=== PATIENT | female | born 1965 | race Caucasian/White ===

== ENCOUNTER 2019-12-27 07:14 | Outpatient (CLI) | payer OTHER, SELFPAY ==
--- NOTE | ~2019-12-27 | NM_ITS ---
EXAMINATION: NM bone scan whole body DATE: 12/27/2019 10:58 INDICATION: Bone pain. Rheumatoid arthritis. TECHNIQUE: 23.2 mCi Tc-99m HDP was administered intravenously. Delayed whole-body scintigrams were o btained. COMPARISON: Lumbar spine radiographs 12/13/2015, knee radiographs 12/27/2019 FINDINGS: There is joint-centered increased activity in the knees correlating with osteoarthritis on radiographs. There is disc-centered increased activity in lumbar spine correlating with degenerative disc disease on radiographs. There is joint-centered increased activity in the feet without radiograp hic comparison, likely osteoarthritis. There is increased activity at the acromioclavicular joints wi thout radiographic comparison, likely osteoarthritis. IMPRESSION: 1. Polyarticular osteoarthritis. 2. Lumbar spondylosis. Reviewed, dictated and finalized at location A.
== END 2019-12-27 07:15 | disposition home or self-care (01) ==
PROVIDERS: Visit Provider Internal Medicine Rheumatology
DX: M06.9 Rheumatoid arthritis, unspecified (principal); M89.8X9 Other specified disorders of bone, unspecified site; M47.896 Other spondylosis, lumbar region; M51.36 Other intervertebral disc degeneration, lumbar region
CPT/HCPCS: 78306; A9561

== ENCOUNTER 2020-04-12 07:40 | Outpatient (RCR) | payer OTHER, SELFPAY ==
--- NOTE | 2020-04-12 08:53 | PTOPEVAL ---
Thank you for referring Alka Phillips to [facility].? The patient is scheduled to be seen for therapy? ____x/week for ___ weeks. Please review, sign, date and return this plan of care VIANEY. I agree with and certify that the following plan of care is medically necessary. Referring Physician Date Admitting Provider: Attending Provider: Duke Mccauley, MD Referring Provider: *PT Outpatient Evaluation Start: 04/12/20 08:05 Freq: Status: Active Protocol: Document 04/12/20 08:05 BETTY (Rec: 04/12/20 08:50 [facility] [id number]) Therapy Assessment Status Assessment Status Assessment Status Evaluation Evaluation Information Problem Diagnosis calf pain and knee pain R LE Onset 04/08/20 Additional Evaluation Detail LEFS = 38% functionally declined Subjective Information patient reports no injury to Query Text:As Reported By Patient/ the R knee/calf. she reports Family she has not noticed a change in activity either at home or work. she reports she had pain in the front of the knee, down the anterior lower leg. she reports she also has pain in the posterior lower leg/ calf. she reports she has increased pain with pronlonged walking, increased walking speed, and up and down steps. she reports going down steps is worse. 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 she reports she must be on her feet all day and go up and down steps frequently. she reports she has noticed increased knee pain now for months. she reports she gets injections about every 3 months for RA. she reports her last injection was about 2 months ago. Pain Assessment Timing of Pain Assessment Timing of Pain Assessment Assessment Pain Scale Pain Scale Used Numeric (1 - 10) Self Report Pain Assessment Right Leg(s) Reported Pain Level 4 Greatest Pain Intensity 9 Pain Score Pain Score 4: Self Report Additional Pain Score Comments patient reports increased pain after sit
== END 2020-05-17 11:30 | disposition home or self-care (01) ==
LOC: CHSPT 07:40
PROVIDERS: Visit Provider Internal Medicine Rheumatology
DX: M06.9 Rheumatoid arthritis, unspecified (principal)
CPT/HCPCS: 97110; 97140; 97161

== ENCOUNTER 2020-05-14 08:51 | Outpatient (CLI) | payer OTHER, SELFPAY | END 2020-05-14 08:52 | disposition home or self-care (01) | PROVIDERS: PCP Orthopaedic Surgery | DX: Z23 Encounter for immunization (principal) | CPT/HCPCS: 0001A; 91300 ==

== ENCOUNTER 2020-06-04 08:55 | Outpatient (CLI) | payer OTHER, SELFPAY | END 2020-06-04 08:56 | LOC: ANHCOVIDVC 08:55 | PROVIDERS: PCP Orthopaedic Surgery | DX: Z23 Encounter for immunization (principal) | CPT/HCPCS: 0002A; 91300 ==

== ENCOUNTER 2021-11-07 10:24 | Outpatient (CLI) | payer OTHER, SELFPAY ==
[2021-11-07 10:42] LABS: Hemoglobin 12.8 g/dL (12.0-15.0); Mean Corpuscular HGB Conc 32.8 g/dL (32.0-36.0); Mean Corpuscular Hemoglobin 31.5 pg (27.0-31.0); Mean Corpuscular Volume 96.1 fL (78.0-102.0); Mean Platelet Volume 9.9 fl (9.2-11.8); Platelet Count Result 229 K/mm3 (150-420); Red Blood Count 4.06 M/mm3 (4.20-5.40); Red Cell Distribution Width 12.4 % (11.6-14.4); White Blood Count 7.3 K/mm3 (4.8-10.8)
[2021-11-07 11:09] LABS: Alanine Aminotransferase 37 U/L (14-59); Alkaline Phosphatase 109 U/L (46-116); Anion Gap 9 mmol/L (8-16); Aspartate Amino Transferase 29 U/L (15-37); Bilirubin,Total 0.5 mg/dL (0.00-1.00); Blood Urea Nitrogen 20 mg/dL (7-18); Calcium 9.3 mg/dL (8.5-10.1); Carbon Dioxide 26 mmol/L (21-32); Chloride 103 mmol/L (98-108); Cholesterol 221 mg/dL (0-200); Estimated Glomerular Filt Rate > 60; Glucose 92 mg/dL (70-99); HDL Direct 108 mg/dL (40-60); LDL Cholesterol Calculated 101 mg/dL (<130); Osmolality Calculated 288 mOsm/kg (285-295); Potassium 3.8 mmol/L (3.5-5.1); Sodium 138 mmol/L (136-145); Total Protein 7.3 g/dL (6.4-8.2); Triglycerides 62 mg/dL (0-150)
[2021-11-07 11:16] LABS: Thyroid Stimulating Hormone Reflex 0.97 u/IU/mL (0.36-3.74)
== END 2021-11-07 10:25 | disposition home or self-care (01) ==
LOC: CHSLAB 10:25
PROVIDERS: PCP Family Medicine; Visit Provider Family Medicine
DX: Z00.00 Encounter for general adult medical examination without abnormal findings (principal); B35.1 Tinea unguium; E11.9 Type 2 diabetes mellitus without complications
CPT/HCPCS: 36415; 80053; 80061; 84443; 85027

== ENCOUNTER 2021-11-13 13:29 | Outpatient (CLI) | payer OTHER, SELFPAY ==
--- NOTE | ~2021-11-13 | XR_ITS ---
EXAMINATION: XR hand LT min 3V DATE: 11/13/2021 14:07 INDICATION: Left hand pain. TECHNIQUE: 3 views of left hand were obtained. COMPARISON: None. FINDINGS: Bone alignment is normal. No fracture. There is mild osteoarthritis of second metacarpophal angeal joint and fourth and fifth distal interphalangeal joints. IMPRESSION: 1. Mild polyarticular osteoarthritis. Reviewed, dictated and finalized at location A.
--- NOTE | ~2021-11-13 | XR_ITS ---
EXAMINATION: XR hand RT min 3V DATE: 11/13/2021 14:06 INDICATION: Right hand pain. TECHNIQUE: 3 views of right hand were obtained. COMPARISON: None. FINDINGS: Bone alignment is normal. No fracture. There is mild osteoarthritis of first and second met acarpophalangeal joints and second distal interphalangeal joint. IMPRESSION: 1. Mild polyarticular osteoarthritis. Reviewed, dictated and finalized at location A.
[2021-11-13 13:48] LABS: Basophils Absolute Auto 0.04 K/mm3 (0.00-0.10); Basophils Percent Auto 0.5 % (0.0-1.0); Eosinophils Percent Auto 1.3 % (1.0-6.0); Hematocrit 37.3 % (35.0-49.0); Hemoglobin 12.3 g/dL (12.0-15.0); Immature Granulocyte Absolute 0.02 K/mm3 (0.00-0.00); Immature Granulocyte Percent A 0.3 % (0.0-0.0); Lymphocytes Percent Auto 25.1 % (18.0-42.0); Mean Corpuscular Hemoglobin 31.2 pg (27.0-31.0); Mean Corpuscular Volume 94.7 fL (78.0-102.0); Mean Platelet Volume 9.9 fl (9.2-11.8); Monocytes Absolute Auto 0.67 K/mm3 (0.10-0.90); Monocytes Percent Auto 8.8 % (2.0-11.0); Neutrophils Absolute Auto 4.9 K/mm3 (1.7-7.2); Platelet Count Result 236 K/mm3 (150-420); Red Blood Count 3.94 M/mm3 (4.20-5.40); Red Cell Distribution Width 12.3 % (11.6-14.4); White Blood Count 7.6 K/mm3 (4.8-10.8)
[2021-11-13 14:06] LABS: Hemoglobin A1C 5.7 % (<5.7)
[2021-11-13 14:23] LABS: RFT Charge Test YES; Rheumatoid Factor Screen Positive (Negative)
[2021-11-13 14:33] LABS: Alanine Aminotransferase 41 U/L (14-59); Albumin Level 3.7 g/dL (3.4-5.0); Alkaline Phosphatase 121 U/L (46-116); Anion Gap 9 mmol/L (8-16); Aspartate Amino Transferase 33 U/L (15-37); Bilirubin,Total 0.5 mg/dL (0.00-1.00); Blood Urea Nitrogen 19 mg/dL (7-18); Calcium 9.1 mg/dL (8.5-10.1); Carbon Dioxide 25 mmol/L (21-32); Chloride 105 mmol/L (98-108); Estimated Glomerular Filt Rate > 60; Folic Acid 15.5 ng/mL (8.6->20); Glucose 106 mg/dL (70-99); Osmolality Calculated 290 mOsm/kg (285-295); Potassium 4.1 mmol/L (3.5-5.1); Sodium 139 mmol/L (136-145); Total Protein 6.6 g/dL (6.4-8.2)
[2021-11-13 14:39] LABS: CRP < 0.2 mg/dL (0.0-0.9)
[2021-11-13 14:56] LABS: Erythrocyte Sedimentation Rate 20 mm/hr (0-20)
[2021-11-16 12:30] LABS: Anti Cyclic Citrullinated Pept <16 Units (<20)
[2021-11-17 00:30] LABS: Albumin 4.2 g/dL (3.8-4.8); Alpha 1 Globulin 0.3 g/dL (0.2-0.3); Alpha 2 Globulin 0.7 g/dL (0.5-0.9); Beta 1 Globulin 0.4 g/dL (0.4-0.6); Gamma Globulin 0.9 g/dL (0.8-1.7); Protein, Total 6.7 g/dL (6.1-8.1)
== END 2021-11-13 13:30 | disposition home or self-care (01) ==
LOC: CHSLAB 13:32
PROVIDERS: PCP Family Medicine
DX: G56.03 Carpal tunnel syndrome, bilateral upper limbs (principal); M05.80 Other rheumatoid arthritis with rheumatoid factor of unspecified site; M79.641 Pain in right hand; M79.642 Pain in left hand
CPT/HCPCS: 36415; 73130; 80053; 82746; 82747; 83036; 84155; 84165; 84443; 85025; 85652; 86140; 86200; 86430; 86431

== ENCOUNTER 2021-11-20 07:36 | Outpatient (CLI) | payer OTHER, SELFPAY ==
--- NOTE | ~2021-11-20 | MM_ITS ---
EXAMINATION: MM screening yanet BI w blank HISTORY: Screening mammogram, family history of breast cancer in her mother. TECHNIQUE: Craniocaudal and mediolateral oblique 3-D tomosynthesis images were obtained and synthetic 2-D images were generated. CAD analysis was submitted and interpreted. COMPARISON: 10/21/2010, 10/01/2009 BREAST PARENCHYMAL COMPOSITION: The breasts are heterogeneously dense, which may obscure small masses . FINDINGS: There is no suspicious mass, calcification, or architectural distortion to suggest malignan cy in either breast. There has been no suspicious interval change. IMPRESSION: 1. No mammographic evidence of malignancy. 2. Recommend routine screening mammography in one year. BI-RADS Category 1: Negative Reviewed, dictated and finalized at location A.
== END 2021-11-20 07:37 | disposition home or self-care (01) ==
LOC: CHSIMG 07:36
PROVIDERS: PCP Family Medicine; Visit Provider Family Medicine
DX: Z12.31 Encounter for screening mammogram for malignant neoplasm of breast (principal)
CPT/HCPCS: 77063; 77067

== ENCOUNTER 2022-12-16 07:54 | Outpatient (CLI) | payer OTHER, SELFPAY ==
--- NOTE | ~2022-12-16 | MM_ITS ---
EXAMINATION: MM screening [facility] BI w blank HISTORY: Screening TECHNIQUE: Craniocaudal and mediolateral oblique 3-D tomosynthesis images were obtained and synthetic 2-D images were generated. CAD analysis was submitted and interpreted. COMPARISON: 11/20/2021 BREAST PARENCHYMAL COMPOSITION: The breasts are heterogeneously dense, which may obscure small masses . FINDINGS: There are developing bilateral breast asymmetries in the subareolar location of both breast s. There are no discrete masses or suspicious clustered calcifications. IMPRESSION: 1. Developing bilateral breast asymmetries. 2. Additional mammographic views and possible breast ultrasound are recommended. BI-RADS Category 0: Incomplete: Needs additional imaging evaluation. Reviewed, dictated and finalized at location A. IMPRESSION: 1. Developing bilateral breast asymmetries. 2. Additional mammographic views and possible breast ultrasound are recommended . BI-RADS Category 0: Incomplete: Needs additional imaging evaluation.
== END 2022-12-16 07:55 | disposition home or self-care (01) ==
LOC: CHSIMG 07:55
PROVIDERS: PCP Family Medicine; Visit Provider Family Medicine
DX: Z12.31 Encounter for screening mammogram for malignant neoplasm of breast (principal); R92.8 Other abnormal and inconclusive findings on diagnostic imaging of breast
CPT/HCPCS: 77063; 77067

== ENCOUNTER 2022-12-25 09:01 | Outpatient (CLI) | payer OTHER, SELFPAY ==
--- NOTE | ~2022-12-25 | MMUS_ITS ---
EXAMINATION: MM diagnostic yanet BI w blank, US breast BI complete HISTORY: Developing bilateral breast mammographic asymmetries reported on 12/16/2022 bilateral screen ing mammogram TECHNIQUE: Additional 3-D tomosynthesis images of both breasts. were performed and synthetic 2-D imag es were generated. CAD analysis was submitted and interpreted. High resolution bilateral complete spencer ast ultrasound examination including all 4 quadrants and subareolar areas was performed. COMPARISON: 12/16/2022 bilateral screening mammogram 11/20/2021 bilateral screening FINDINGS: MAMMOGRAPHIC FINDINGS: No suspicious mass or architectural distortion, malignant calcification, skin thickening or retractio n or significant new or developing density is detected. ULTRASOUND: No suspicious mass or shadowing, cyst or other significant sonographic abnormality of either breast i s detected. IMPRESSION: 1. No mammographic or sonographic evidence of malignancy 2. Routine annual mammographic screening is recommended. BI-RADS Category 1: Negative Reviewed, dictated and finalized at location A. IMPRESSION: 1. No mammographic or sonographic evidence of malignancy 2. Routine annual mammographic screening is recommended. BI-RADS Category 1: Negative
== END 2022-12-25 09:02 | disposition home or self-care (01) ==
LOC: CHSIMG 09:02
PROVIDERS: PCP Family Medicine; Visit Provider Family Medicine
DX: Z00.00 Encounter for general adult medical examination without abnormal findings (principal); R92.8 Other abnormal and inconclusive findings on diagnostic imaging of breast
CPT/HCPCS: 76641; 77062; 77066; G0279

== ENCOUNTER 2023-12-13 08:02 | Outpatient (RCR) | payer OTHER, SELFPAY ==
--- NOTE | 2023-12-13 07:49 | PTOPEVAL1 ---
Assessment and note entered by Marcio Sofia Evaluation Information Assessment Status Evaluation Diagnosis s/p R TKA ICD-10 Condition Codes (PT) Z47.1 Onset 10/18/23 Subjective Information pt. reports she underwent right TKA on 10/18/23. She reports that she has been participating in home health. She has been discharged from home health and feels her knee is becoming more stiff. She reports that she has returned to driving and household activities, but states that she is having pain with these activities. She notices that she has trouble lifting the right leg into the car. She reports that she has stairs in her home, but states that she is having trouble getting up and down the stairs. She states that her driveway distance is the furthest she has walked since surgery. She is uncertain if she notices any improvement since surgery. She reports that her goal is to reduce pain and return to walking normally. Reported Pain Level Pain Score 1: Self Report Assessment PT Clinical Summary Pt. is a 58 year old female 8 weeks post right TKA . She presents with notable edema, impaired gait and impaired right knee ROM. End feels with ROM are capsular on this date. Pt. is very guarded into end range flexion. Educated pt. in regards to acceptable levels of discomfort with exercise and importance of achieving terminal flexion and extension in regards to normalizing mechanics with gait and IADL performance. Continued skilled PT is indicated in order to improve mobility and reduce edema to allow for improve comfort with all IADL's. Plan of Care Interventions Electrical Stimulation,Gait Training,Hot Pack/Cold Pack,Manual Therapy,Neuro Re-education,Patient/ Caregiver Educati,Therapeutic Activities, Therapeutic Exercise PT Services Indicated Yes Treatment Frequency and 2x/week x 6 visits Duration These treatments will address the objective and functional deficits as defined above. The patient will be advanced safely and appropriately in order for the patient to progress towards his/her prior level of function. Additional exercises will be introduced and as well as a comprehensive home exercise program upon discharge, if needed, ?to ensure carryover of functional gains achieved in the clinic. This treatment plan has been reviewed and agreement upon by the patient.
--- NOTE | 2023-12-13 08:04 | OPREHPOC ---
Outpatient Therapy Plan of Care This is a Multidisciplinary Plan of Care that may contain components documented by all disciplines (PT, OT, and ST.) PT Problem 1 PT Problem #1 Knowledge Deficit PT Goal 1 Goal / Goal Update Pt. will be independent with a HEP focusing on ROM quaker Target Visit 2 PT Problem 2 PT Problem #2 Pain PT Goal 1 Goal / Goal Update Pt. will navigate steps with reciprocal pattern without pain Target Visit 6 PT Problem 3 PT Problem #3 Impaired Gait PT Goal 1 Goal / Goal Update Pt. will demonstrate full knee extension during right heel strike with ambulation. Target Visit 2 PT Problem 4 PT Problem #4 Impaired Range of Motion PT Goal 1 Goal / Goal Update Pt. will achieve 0-120 degrees right knee active ROM Pt. will be able to squat to 100 degrees right knee flexion in order to safely lift objects from the floor. Target Visit 6
--- NOTE | 2023-12-30 08:42 | PTOPDC ---
Assessment and note entered by Marcio Sofia Evaluation Information Assessment Status Discharge Diagnosis s/p R TKA ICD-10 Condition Codes (PT) Z47.1 Onset 10/18/23 Subjective Information Pt. states that she visited with her doctor yesterday. She states that she is still concerned with pain and stiffness. She reports that her doctor did not express any concern. She reports that she is continuing to exercise at home. She states that she is ready for discharge at this time. Reported Pain Level Pain Score 2: Self Report Assessment PT Clinical Summary Pt. has met all goals established at the initial evaluation. She is encouraged to continue with her HEP and will be discharged from our care. Plan of Care PT Services Indicated No
== END 2023-12-30 13:11 | disposition home or self-care (01) ==
LOC: CHSPT 08:02
DX: Z47.1 Aftercare following joint replacement surgery (principal); Z96.651 Presence of right artificial knee joint
CPT/HCPCS: 97110; 97140; 97161; 97530

== ENCOUNTER 2024-01-31 15:40 | Outpatient (CLI) | payer OTHER, SELFPAY ==
--- NOTE | ~2024-01-31 | XR_ITS ---
EXAMINATION: XR hand RT min 3V DATE: 01/31/2024 16:02 INDICATION: Right wrist pain. Fall. TECHNIQUE: 3 views of right hand were obtained. COMPARISON: Right hand radiographs 11/13/2021 FINDINGS: There is a transverse fracture of distal radius proximal to the level of the tibial plafond . The distal fracture fragment demonstrates impaction and dorsal angulation. There is 3 degrees dorsa l tilt of the distal articular surface. There is mild osteoarthritis of triscaphe joint and second di stal interphalangeal joint. IMPRESSION: 1. Transverse fracture of distal radius. Reviewed, dictated and finalized at location A. NESS AND SERVICES INSTRUCTOR
--- NOTE | ~2024-01-31 | XR_ITS ---
EXAMINATION: XR wrist RT min 3V DATE: 01/31/2024 16:02 INDICATION: Right wrist pain. Fall. TECHNIQUE: 4 views of right wrist were obtained. COMPARISON: Right hand radiographs 11/13/2021 FINDINGS: There is a transverse fracture of distal radius proximal to the distal radioulnar joint. Th e distal fracture fragment demonstrates impaction and dorsal angulation. There is 3 degrees dorsal ti lt of the distal articular surface. There is mild osteoarthritis of triscaphe joint. IMPRESSION: 1. Transverse fracture of distal radius. Reviewed, dictated and finalized at location A. AL TEACHER
--- NOTE | ~2024-01-31 | XR_ITS ---
EXAMINATION: XR forearm RT 2V DATE: 01/31/2024 16:02 INDICATION: Right wrist pain. Fall. TECHNIQUE: 2 views of right forearm were obtained. COMPARISON: None. FINDINGS: There is a transverse fracture of distal radius. The distal fracture fragment demonstrates impaction and dorsal angulation. Joint spaces are normal. No elbow joint effusion. IMPRESSION: 1. Transverse fracture of distal radius. Reviewed, dictated and finalized at location A. DING PRESSURE WASHER
== END 2024-01-31 15:41 | disposition home or self-care (01) ==
LOC: CHSIMG 15:43
PROVIDERS: PCP Family Medicine; Visit Provider Family Medicine
DX: S52.591A Other fractures of lower end of right radius, initial encounter for closed fracture (principal)
CPT/HCPCS: 73090; 73110; 73130

== ENCOUNTER 2024-01-31 16:52 | Emergency (ER) | payer OTHER, SELFPAY ==
[2024-01-31 16:53] VITALS: BP 134/69; PULSE 79; RESP 18; TEMP 36.4; O2SAT 99
--- NOTE | 2024-01-31 18:04 | ED.FALL ---
HPI - Fall General Chief Complaint: Fall Stated Complaint: fell/ rt. hand pain Source: patient Mode of arrival: ambulatory Limitations: no limitations History of Present Illness HPI Narrative: patient's septal on ice, today, family physician referred patient to the ED because x-ray of the right wrist showed distal radial fracture. Patient denies other injuries. Related Data Allergies Allergy/AdvReac Type Severity Reaction Status Date / Time No Known Allergies Allergy Verified 01/31/24 17:05 Review of Systems Review of Systems: All systems reviewed & are unremarkable except as noted in HPI and below PMFSH Past Medical History Medical History Arthritis of both knees Rheumatoid arthritis Trigger thumb of right hand Surgical History Surgical History No history of previous surgery Social History Social History Smoking status: Never smoker Exam Narrative: General appearance: Well-developed, well-nourished Skin: Normal color Head: Normocephalic, nontraumatic Neck: Supple, nontender Chest and respiratory: Airway patent, no respiratory distress, no accessory muscle use Heart: Regular rate/rhythm Vascular: Normal peripheral pulses, normal capillary refill. Musculoskeletal: Diffuse tenderness right wrist with limited range of motion, no deformity, no bruises, limited range of motion Neurologic: Alert and oriented ?3, OPEN SOURCE DEVELOPER is normal as tested, no gross motor deficit Course Vital Signs Vital signs: Vital Signs Temperature 36.4 C 01/31/24 16:53 Pulse Rate 79 01/31/24 16:53 Respiratory Rate 18 01/31/24 16:53 Blood Pressure 134/69 01/31/24 16:53 Pulse Oximetry 99 01/31/24 16:53 Oxygen Delivery Room Air 01/31/24 16:53 Temperature 36.7 C 01/31/24 18:28 Pulse Rate 76 01/31/24 18:28 Respiratory Rate 18 01/31/24 18:28 Blood Pressure 131/77 01/31/24 18:28 Pulse Oximetry 98 01/31/24 18:28 Oxygen Delivery Room Air 01/31/24 18:28 MDM - Fall MDM Narrative Medical decision making narrative: differential diagnosis fracture wrist X-ray of the right wrist showed nondisplaced fracture of the distal radius Splint, arm sling ordered. Differential Diagnosis Differential diagnosis: Likely other ( Fracture wrist) Imaging Data Radiologist's impression: x-ray of the right wrist showed distal radial fracture, nondisplaced Critical Care Time Critical Care Time Critical Care Time: No Discharge Plan Discharge Clinical Impression: Fracture of wrist Patient Disposition: Home, Self-Care Condition: Stable Instructions: Wrist Fracture in Adults (ED) Additional Instructions: Return if symptoms are worsening , call orthopedic for appointment, take Tylenol as as needed for aches and pain, continue home medications. Keep right hand elevated Prescriptions: New hydrocodone-acetaminophen 5-325 mg tablet 1 tablet PO Q4H Qty: 20 0RF No Action clindamycin HCl 300 mg capsule 300 mg PO Q6H Qty: 20 0RF Follow-up/Referrals: Jhonny Brennan DO [Primary Care Provider] - Sal Kent MD [Physician] - 02/01/24
[2024-01-31] MEDS: IBUPROFEN 600 MG TABLET PO (18:21)
[2024-01-31] MEDS: HYDROcodone/acetaminophen (*CRX) 5-325 MG TABLET 1 TAB PO (18:21)
[2024-01-31 18:28] VITALS: BP 131/77; PULSE 76; RESP 18; TEMP 36.7; O2SAT 98
== END 2024-01-31 18:30 | disposition home or self-care (01) ==
PROVIDERS: Emergency Provider Emergency Medicine; PCP Family Medicine
DX: S62.101A Fracture of unspecified carpal bone, right wrist, initial encounter for closed fracture (principal); W19.XXXA Unspecified fall, initial encounter
CPT/HCPCS: 29125; 99284; A4565; A9270

== ENCOUNTER 2024-02-01 13:01 | Outpatient (CLI) | payer OTHER, SELFPAY ==
--- NOTE | ~2024-02-01 | MM_ITS ---
EXAMINATION: MM screening yanet BI w blank HISTORY: Screening TECHNIQUE: Craniocaudal and mediolateral oblique 3-D tomosynthesis images were obtained and synthetic 2-D images were generated. CAD analysis was submitted and interpreted. COMPARISON: Comparison to multiple prior studies sequentially, with oldest reviewed study dated 11/20. BREAST PARENCHYMAL COMPOSITION: Dense: The breasts are heterogeneously dense, which may obscure small masses FINDINGS: There is no evidence of suspicious mass, calcification, or architectural distortion to sugg est malignancy in either breast. There has been no suspicious interval change. IMPRESSION: 1. No mammographic evidence of malignancy. 2. Recommend routine screening mammography in one year. BI-RADS Category 1: Negative Reviewed, dictated and finalized at location B. TIVE SERVICES INTERN
== END 2024-02-01 13:02 | disposition home or self-care (01) ==
PROVIDERS: PCP Family Medicine; Visit Provider Family Medicine
DX: Z12.31 Encounter for screening mammogram for malignant neoplasm of breast (principal)
CPT/HCPCS: 77063; 77067

== ENCOUNTER 2024-02-14 09:02 | Outpatient (CLI) | payer OTHER, SELFPAY ==
--- NOTE | ~2024-02-14 | XR_ITS ---
Right wrist Technique: PA, oblique, lateral, and ulnar deviation views were obtained. Clinical History: Fracture COMPARISON: 02-21 Findings: Transverse fracture of the distal radius is stable from prior exam. Fracture line is slight ly less conspicuous.. Joint spaces are preserved. Soft tissues are unremarkable. Impression: Mild interval healing of transverse fracture the distal radius. Reviewed, dictated and finalized at location . NG ROOM CAPTAIN Impression: Mild interval healing of transverse fracture the distal radius.
--- OUTSIDE RECORDS SUMMARY | 2024-02-20 23:25 | XMS_ITS | Encounter Summary ---
Author Organization [facility] Address [address] [place] [address] Care Team Providers Care Cephalometric Technician Name Role Phone Jhonny Brennan DO Primary Care Provider [phone] Reason for Visit * Reason Onset Date Comments Patient Requested Call 10/12/2023 Patient c alled in to ask if she may continue her tylenol and celebrex up until sx. Encounter Details Date Type Department Care Team (Late st Contact Info) Description 10/12/2023 Telephone [facility] Orthopedics [id number] [place] [id number] [place] [id number] [address] Patient Requested Call (Patient called in to ask if she may continue her tylenol and celebrex up until sx.) Social History Tobacco Use Types Packs/Day Years Used Date Smoking Tobacco: Never Smokeless Tobacco: Never Alcohol Use Standard Drinks/Week Comments Yes 7 (1 standard drink = 0.6 oz pur e alcohol) Sex and Gender Information Value Date Recorded Sex Assigned at Not on file Gender Identity Not on file Sexual Orientation Not on file documented as of this encounter Miscellaneous Notes * Telephone Encounter - Dina Serrano MA - 10/15/2023 12:31 PM CDT Called Maxine to let her know she can continue her Tylenol and Celebrex. * Telephone Encounter - Avery Bae MA - 10/12/2023 3:17 PM CDT Patient called in to ask if she may continue her tylenol and celebrex up until sx. documented in this encounter Plan of Treatment Not on file documented as of this encounter Visit Diagnoses Not on filedocumented in this encounter Care Teams Cephalometric Technician Relationship Specialty Start Date End Date Jhonny Brennan DO [address] [place] [id number] PCP - General Family Medicine 04/13/23 documented as of this encounter
--- OUTSIDE RECORDS SUMMARY | 2024-02-20 23:25 | XMS_ITS | Encounter Summary ---
Author Organization [facility] Address [address] [facility] [place] [address] Care Team Providers Care Pump And Still Operator Name Role Phone LibertadJhonny lawson Primary Care Provider [phone] Encounter Details Date Type Department Care Team (Late st Contact Info) Description 10/18/2023 Orders Only [facility] [address] [address] [place] [address] [place] [address] [facility] [address] [place] [address] Social History Tobacco Use Types Packs/Day Years Used Date Smoking Tobacco: Never Smokeless Tobacco: Never Alcohol Use Standard Drinks/Week Comments Yes 7 (1 standard drink = 0.6 oz pur e alcohol) AUDIT-C Answer Date Recorded Q1: How often do you have a drink containing alc ohol? 2-3 times a week 10/18/2023 Q2: How many drinks containi ng alcohol do you have on a typical day when you are drinking? 1 or 2 10/18/2023 Q3: How often do you have si x or more drinks on one occasion? Never 10/18/2023 Hunger Vital Sign Answer Date Recorded Within the past 12 months, y ou worried that your food would run out before you got the money to buy more. Never true 10/19/19 24 Within the past 12 months, t he food you bought just didn't last and you didn't have money to get more. Never true 10/19/2023 Sex and Gender Information Value Date Recorded Sex Assigned at Not on file Gender Identity Not on file Sexual Orientation Not on file documented as of this encounter Functional Status Functional Status Response Date of Assess ment Is person deaf or have serious hearing difficult y? No 10/18/2023 Is person blind or have serious difficulty seein g? No 10/18/2023 Does person have serious dif ficulty walking/climbing stairs? No 10/18/2023 Does person have difficulty dressing/bathing? No 10/18/2023 Does person have difficulty doing errands alone? No 10/18/2023 Cognitive Status Response Date of Assessm ent Does person have difficulty concentrating/remembering/making decisions? No 10/18/2023 documented as of this encounter Plan of Treatment Not on file documented as of this encounter Visit Diagnoses Not on filedocumented in this encounter Care Teams Pump And Still Operator Relationship Specialty Start Date End Date Jhonny Brennan DO [address] [place] [id number] PCP - General Family Medicine 04/13/23 documented as of this encounter
--- OUTSIDE RECORDS SUMMARY | 2024-02-20 23:25 | XMS_ITS | Encounter Summary ---
Author Organization [facility] Address [address] [facility] [place] [address] Care Team Providers Care Well Tester Name Role Phone Jhonny Brennan Primary Care Provider [phone] Encounter Details Date Type Department Care Team (Latest Contact Info) Description 10/18/2023 Travel Social History Tobacco Use Types Packs/Day Years [...] on filedocumented in this encounter Care Teams Well Tester Relationship Specialty Start Date End Date Jhonny Brennan DO [address] [place] [id number] PCP - General Family Medicine 04/13/23 documented as of this encounter
--- OUTSIDE RECORDS SUMMARY | 2024-02-20 23:25 | XMS_ITS | Encounter Summary ---
Author Organization [facility] Address [address] [facility] [place] [address] Care Team Providers Care Freelance Data Entry Name Role Phone LibretadJhonny lawson Primary Care Provider [phone] Reason for Visit * Reason Comments Refill Request Encounter Details Date Type Department Care Team (Late st Contact Info) Description 10/28/2023 Refill [facility] [address] [facility], [address] [id number] Sal Parker PA-C [address] [phone] Refill Request Social History Tobacco Use Types Packs/Day Years [...] No 10/18/2023 documented as of this encounter Miscellaneous Notes * Telephone Encounter - Eleanor Fam - 10/28/2023 9:51 AM CDT Celebrex refill has been sent to Sal [facility] for authorization. It will be sent electronically to [facility] once signed. documented in this encounter Plan of Treatment Not on file documented as of this encounter Visit Diagnoses Diagnosis Primary osteoarthritis of both knees Primary localized osteoarthrosis, lower leg documented in this encounter Care Teams Freelance Data Entry Relationship Specialty Start Date End Date Jhonny Brennan DO [address] [place] [id number] PCP - General Family Medicine 04/13/23 documented as of this encounter
--- OUTSIDE RECORDS SUMMARY | 2024-02-20 23:25 | XMS_ITS | Encounter Summary ---
Author Organization [facility] Address [address] [place] [address] Care Team Providers Care Paint Booth Operator Name Role Phone Jhonny Brennan DO Primary Care Provider [phone] Encounter Details Date Type Department Care Team (Late st Contact Info) Description 10/14/2023 Lab Requisition [facility] [address] [place] [address] Jesica Paulino PA [address] [place] [address] Social History Tobacco Use Types Packs/Day Years Used Date Smoking Tobacco: Never Assessed AUDIT-C Answer Date Recorded Q1: How often do you have a drink containing alc ohol? 2-3 times a week 10/18/2023 Q2: How many drinks containi ng alcohol do you have on a typical day when you are drinking? 1 or 2 10/18/2023 Q3: How often do you have si x or more drinks on one occasion? Never 10/18/2023 Sex and Gender Information Value Date Recorded Sex Assigned at Not on file Gender Identity Not on file Sexual Orientation Not on file documented as of this encounter Plan of Treatment Not on file documented as of this encounter Visit Diagnoses Not on filedocumented in this encounter Care Teams Paint Booth Operator Relationship Specialty Start Date End Date Jhonny Brennan DO [address] [place] [address] PCP - General Family Medicine 04/13/23 documented as of this encounter
--- OUTSIDE RECORDS SUMMARY | 2024-02-20 23:25 | XMS_ITS | Encounter Summary ---
Author Organization [facility] Address [address] [place] [address] Care Team Providers Care Knife Setter Grinder Machine Name Role Phone WilliamJhonny larson Primary Care Provider [phone] Reason for Visit * Auth/Cert (Routine) Specialty Diagnoses / Procedures Referred By Contac t Referred To Contact Procedures WI TOTAL KNEE REPLACEMENT ARTHROPLASTY TOTAL KNEE Referral ID Status Reason Start Date Expiration Date Visits Re quested Visits Authorized [id number] 1 1 Encounter Details Date Type Department Care Team (Late st Contact Info) Description 10/18/2023 9:55 AM CDT - 10/18/2023 12:11 PM CDT Surgery [facility] - Perioperative Surgery [address] [place] [address] [place] [id number] [address] RIGHT TOTAL KNEE ARTHROPLASTY Surgery Details Date/Time Status Location OR Service Patient Class Case Class Case Type Trauma Case? 10/18/2023 9:55 AM Posted [facility] MAIN OR OR 12 Orthopedics Surgery Day Care Over Night Elective > 5 days Panel 1 Procedure LRB Anes Op Region Wound Class Comments RIGHT TOTAL KNEE ARTHROPLASTY Right Spinal Knee Clean Surgeon Surgeon Role Service Panel Aaron Rodriguez MD Primary Orthopedics 1 Special Needs BIOMET (RAFFI) NOTIFIED-NB documented in this encounter Social History Tobacco Use Types Packs/Day Years Used Date Smoking Tobacco: Never Smokeless Tobacco: Never Tobacco Cessation:Counseling Given: Not Answered Alcohol Use Standard Drinks/Week Comments Yes 7 [...] on file documented as of this encounter Last Filed Vital Signs Vital Sign Reading Time Taken Comments Blood Pressure 137/70 10/18/2023 8:55 AM CDT Pulse 60 10/18/2023 8:55 AM CDT Temperature 37 ??C (98.6 ??F) 10/18/2023 8:55 AM CDT Respiratory Rate 16 10/18/2023 8:55 AM CDT Oxygen Saturation 100% 10/18/2023 8:55 AM CDT Inhaled Oxygen Concentration - - Weight 68.9 kg (152 lb) 10/18/2023 8:41 AM CDT Height 154.9 cm (5' 1 ) 10/18/2023 8:41 AM CDT Body Mass Index 29.97 10/18/2023 2:28 PM CDT documented in this encounter Functional Status Functional Status Response [...] No 10/18/2023 documented as of this encounter Discharge Summaries * Kayla Gtz RN - 10/19/2023 10:29 AM CDT Physician Discharge Summary Patient Name: Alka Phillips Date of : 1965 Admit date: 10/18/2023 Discharge date:10/19/2023 Admitting Physician: Aaron Rodriguez MD Attending Physician: Aaron Rodriguez MD Discharge Physician: Aaron Rodriguez MD Admission Diagnosis: Degenerative joint disease, right knee. Past Medical History No past medical history on file. Discharge Diagnoses Active Problems: Primary osteoarthritis of right knee Resolved Problems: * No resolved hospital problems. * Diagnostic Studies See hospital course Treatments See hospital course Procedures See hospital course Consults Internal med Hospital Course Good Progress with PT. Pain Controlled w/ oral medications. Incisional area c/d/I Condition at discharge: good Disposition: Home, Home health Code Status At Discharge Full Code Patient Instructions Discharge Procedure Orders AMB REFERRAL TO HOME HEALTH CARE Referral Priority: Routine Referral Type: Home Health Care Referral Reason: Specialty Services Required Requested Specialty: Home Health Services Number of Visits Requested: 1 Why you were hospitalized Order Specific Question Answer Comments Your discharge diagnosis is: Status post surgery [[id number]] No special diet needed Resume your normal home diet as tolerated. Continue the anti-inflammatory diet, as instructed pre-operative, for 4 weeks after surgery. Assistive device(s) Please use a walker. Do not go without your walker, even short distances, as this can result in a fall. Your home health physical therapist will progress you to a cane over the next few weeks. Weight bearing as tolerated Slowly increase the amount of weight you put on your operative leg. Do not drive Until you are off your pain medications and you feels safe behind a wheel. This is generally at least 3-4 weeks after surgery. Activity per Physical Therapy Continue to follow the activity instructions/precautions given to you by the Physical Therapist. Apply ice to surgical site Apply ice to your surgery site for at least 20 minutes, every hour, when awake. Elevate affected extremity Elevate operative leg above heart level at least for 45 min three times a day. Do not leave foot independent position (on the floor) for more than 45 min at a time. Prop foot up on stool or chair toallow for some elevation. Special incision care For the first 4 weeks after surgery it is important to protect the incision area and keep it clean to help prevent infection. 1. Hand hygiene is most important. Wash your hands with soap and water frequently, every time after using the toilet, and every time before and after you touch a bandage. 2.Do NOT allow pets to lick or be near the wound when it is uncovered. 3. Wash and change your clothes, bed linens, and blankets frequently to prevent wound infection. 4. Limit alcohol and smoking as this inhibits healing. 5. Continue to follow the anti-inflammatory diet and nutrition guidance given before surgery. 6. Do NOT use the same washcloth or towel on or near your incision that you used forthe rest of your body. 7. When using the bathroom, clean the perineal area from front to back each time you urinate or have a bowel movement, and always use a clean piece of toilet tissue with each cleaning motion. Always wash your hands with soap and water after you use the bathroom. Special dressing instructions Leave the operative (silver) dressing in place. Do not touch the dressing unless you have wound concerns and are instructed by a healthcare provider to inspect the incision. You may shower with the silver dressing on because it is waterproof. Wrap the area with [id number]-[id number] or saran wrap before youshower. Do not let water saturate the bandage. Remove xhjes-w-szmf/saran wrap after your shower. DoNOT shower if you have drainage from the wound. Home health will remove the silver dressing about one week after surgery and place a gauze dressing. To shower when using a gauze bandage: remove gauzedressing before you shower. Allow water to run over the incision but not pour on the incision. Do no t scrub the incision area. Pat dry with a CLEAN towel and apply a new gauze dressing after your shower. Do NOT use the same washcloth or towel used on the rest of your body near or on your incisionalarea. Bacteria from other parts of the body and especially the genital area can contaminate the wound and cause wound infection. Do NOT shower if you have any drainage from your wound. Please call the surgeon's office if you have any wound drainage, No tub baths until approved by your surgeon Staple care Your issac will be taken out 12-15 days post op by home health. Do not shower for 24 hours after staple removal. After issac are removed and there is no drainage present, incision can be left uncovered. When to call your provider We want to help you avoid an unnecessary ER visit or hospital readmission. Call your surgeon's office immediately if any of the following signs or symptoms occur after surgery: ?? Wound concerns: - Increase in redness, separation or gap along the edges of the incision - Drainage that is increasing, foul-smelling, an unusual color, or that continues more than 7 days after surgery ?? Pain, redness or excessive tenderness in your leg or calf ?? Excessive swelling in your foot, ankle, calf and/or thigh ?? Ankle swelling that does not improve overnight ?? Pain that does not improve with medication, rest, ice and elevation ?? Fever greater than 101.5 degrees ?? Blood in the stool or urine ?? Constipation not relieved by use of over-the counter laxatives ?? Nausea or vomiting When to Call 911: Call 911 if you have any of these symptoms: ?? Shortness of breath ?? Chest pain ?? Coughing up blood ?? Unexplained anxiety, especially with breathing Call 911 for any symptoms of stroke: ?? Sudden numbness or weakness of face, arm or leg, especially on one side. ?? Sudden confusion or trouble speaking or understanding speech. ?? Sudden trouble seeing in one or both eyes. ?? Sudden trouble walking, dizziness or loss of balance or coordination. ?? Sudden severe headache with no known cause. Follow up with provider Order Specific Question Answer Comments Make appointment to follow up in: Other: (see comment) Follow Up Instructions for Patient: Other (See Comment) 3 weeks Medication instructions Do not drink alcohol when taking pain medications. Pain medications may make you drowsy. Do not attempt to drive or operate equipment after taking pain medications. Pain medications may make you constipated. Fresh fruits, vegetables, and juices will help to prevent this problem. If you become consti pated, ydyt-wfu-exlproh laxatives are available. - If your pain pills are not working call the clinic nursing staff in the office during normal business hours - To refill your pain pill prescription, call the clinic nursing staff in the office during normal business hours 2-3 days before you run out of pills. - Pain medications will not be refilled outside of regular clinic hours. Contact Information for Follow-Up Providers Aaron Rodriguez MD Specialty: Orthopedic Surgery, Radiology [address] [place] [address] Make appointment to follow up in: Other: (see comment) Follow Up Instructions for Patient: Other (See Comment) Comment - 3 weeks Discharge time: less than 30 minutes. Current Discharge Medication List UNREVIEWED MEDICATIONS Instructions Authorizing Provider Other Keto Vitamin oxyCODONE (immediate release) 10 MG tablet Commonly known as: Roxicodone Quantity Dispensed: 30 tablet Take 0.5 (one-half) tablet to 1 (one) tablet by mouth every 4 hours as needed for Pain (PAIN) Aaron Rodriguez MD START taking these medications Instructions Authorizing Provider acetaminophen 500 MG capsule Commonly known as: Tylenol Replaces: acetaminophen 500 MG tablet Take 2 (two) capsules by mouth 3 times daily Take for ten days then as needed. Aaron Rodriguez MD aspirin 81 MG chew tablet Commonly known as: Aspirin Quantity Dispensed: 84 tablet Take 1 (one) tablet by mouth 2 times daily for 42 days Take for blood clot prevention. Aaron Rodriguez MD omeprazole 20 MG capsule Commonly known as: PriLOSEC Quantity Dispensed: 42 capsule Take 1 (one) capsule by mouth daily before breakfast for 42 days Aaron Rodriguez MD CONTINUE taking these medications which have NOT CHANGED Instructions Authorizing Provider celecoxib 200 MG capsule Commonly known as: CeleBREX Quantity Dispensed: 60 capsule Take 1 (one) capsule by mouth 2 times daily Sal Parker PA-C STOP taking these medications acetaminophen 500 MG tablet Commonly known as: Tylenol Replaced by: acetaminophen 500 MG capsule CC: none documented in this encounter Medications at Time of Discharge Medication Sig Dispensed Refills Start Date End Date acetaminophen (Tylenol) 500 MG capsule Take 2 (two) capsules by mouth 3 times daily Take for ten days then as needed. 10/18/2023 aspirin (Aspirin) 81 MG chew tablet TAKE 1 (ONE) TABLET BY MOUTH 2 TIMES DAILY FOR 42 DAYS TAKE FOR BLOOD CLOT PREVENTION. 84 tablet 10/18/2023 10/17/2024 omeprazole (PriLOSEC) 20 MG capsule TAKE 1 (ONE) CAPSULE BY MOUTH DAILY BEFORE BREAKFAST FOR 42 DAYS 42 capsule 10/18/2023 10/17/2024 Other Keto Vitamin oxyCODONE, immediate release, (Roxicodone) 10 MG tabletIndications:Postop erative pain Take 0.5 (one-half) tablet to 1 (one) tablet by mouth every 4 hours as needed for Pain (PAIN) 30 tablet 10/18/2023 celecoxib (CeleBREX) 200 MG capsuleIndications:Prima ry osteoarthritis of both knees Take 1 (one) capsule by mouth 2 times daily 60 capsule 5 05/13/2023 10/28/2023 documented as of this encounter Progress Notes * Tiffanie Christensen RN - 10/19/2023 12:25 PM CDT A&O x 4 VS stable Silver dressing to R knee clean, dry, and intact Placed call light within reach Fall risk, fall precautions in place Voiding to the bathroom Pain managed with ashlie, tylenol, ice Up with therapy, Mobilizing with SBA Discharging home with HHC, meds with pt, instructions given * Charbel Cao, Chelsie - 10/19/2023 12:04 PM CDT Images from the original note were not included. Clinical Pharmacist Discharge Medication Reconciliation Review Patient's home medication list and inpatient orders were reviewed and compared to the discharge order summary and the AVS placed by the provider. Patients MAR, progress notes, recent labs, micro, vitals, procedural results, etc. reviewed as necessary. READMISSION RISK SCORE is N/A at 12:04 PM 10/19/2023. Readmission risk score > 18 are considered high risk for readmission. ASSESSMENT Medication discrepancies identified or potential areas for Intervention: None PLAN No medication adjustments were made after physician's discharge medication reconciliation. MEDICATION RECONCILIATION REVIEW AVS was updated as necessary. Updated discharge medication list is below in objective section. 10/19/2023 at 12:04 PM @OBJECTIVEBEGIN1@ Current Discharge Medication List START taking these medications Details acetaminophen (Tylenol) 500 MG capsule Take 2 (two) capsules by mouth 3 times daily Take for ten days then as needed. aspirin (Aspirin) 81 MG chew tablet Take 1 (one) tablet by mouth 2 times daily for 42 days Take forblood clot prevention. omeprazole (PriLOSEC) 20 MG capsule Take 1 (one) capsule by mouth daily before breakfast for 42 days CONTINUE these medications which have NOT CHANGED Details celecoxib (CeleBREX) 200 MG capsule Take 1 (one) capsule by mouth 2 times daily Other Keto Vitamin oxyCODONE, immediate release, (Roxicodone) 10 MG tablet Take 0.5 (one-half) tablet to 1 (one) tablet by mouth every 4 hours as needed for Pain (PAIN) STOP taking these medications acetaminophen (Tylenol) 500 MG tablet Comments: Reason for Stopping: * Tiffanie Christensen RN - 10/19/2023 11:39 AM CDT Problem: Pain/Discomfort Goal: Patient exhibits reduced pain/discomfort as evidenced by pain scores 10/19/20231138 by Tiffanie Christensen RN Outcome: Adequate for Discharge 10/19/2023 113 by Tiffanie Christensen RN Note: Managed with pharmacological and non-pharmacological interventions for comfort; Tolerated performing ADLs. Problem: Fall Risk Goal: Patient will remain free of falls 10/19/2023 113 by Tiffanie Christensen RN Outcome: Adequate for Discharge 10/19/20231138 by Tiffanie Christensen RN Note: Free from falls; maintain safety of the patient by providing fall precautions and interventions. Problem: Procedural Site (Incision) Care Goal: Incision remains intact with edges well approximated 10/19/20231138 by Tiffanie Christensen RN Outcome: Adequate for Discharge 10/19/20231138 by Tiffanie Christensen RN Note: Silver Dressing maintained clean, dry and intact. No signs of any infection noted on surgicalsite. * Aminah Leung PTA - 10/19/2023 10:56 AM CDT Physical Therapy Treatment Summary Chart review completed. Nursing consented for PT. Explained purpose of PT and patient consented to participate in therapy. Pt in bed. Awake and fullydressed. Pt ed not to amb with cryo-cuff on.Pt ed in use of call light and not to get up without staff assist.Pt was ed on car transfers and curb/steps with use of provided gt belt for assist as needed for home.Pt ed in WBAT, safe gt and transfers with ww, HEP, ice/elevation, sit up/change position/ move about the house briefly with AD 1 hr intervals. Also ed to cont with use of ww until therapy progresses to LR/no AD.Also ed to cont with use of ww until therapy progresses to LR/no AD.Pt ed in performing AP, QS, IS 10 reps/hr and drinking plenty of fluids. Demo how to adjust ww height for homeand that pt MUST use ww at all times for safety/stability until HH progresses. RECOMMENDATIONS/PLAN: Rec cont'd PT for gt, strength, AD and ROM progression. PT Discharge Recommendations: Patient would benefit from ongoing therapy with home health Recommended Transportation Method: Private Car AM-PAC Basic mobility score for this patient is Mobility Raw Score:: 20 SUBJECTIVE: So I can't just go from like here to there without my walker ? Pt ed on need for AD atall times for safety and stability until progressed by HH. Voices understanding. Patient Arthroplasty Liaison (PAL): SO. Patient's Goal for the Day: progress her PT and go home. Pain Assessment: Pain Location #1 Pain Scale/Observation: Numeric (0-10) Pain Rating Score #1: 4 Sedation Level #1: 1-Awake and alert Pain Location : Knee Pain Orientation: Right Pain Quality: Sore Aggravating Factors: Activity;Movement Relieved By: Ice;Rest;Medications Non-pharmacological interventions: Other (Comment) (ice applied, nsg aware.) Behaviors/Assumed Pain Present : Calm Additional pain sites?: No OBJECTIVE: Orientation Level: Oriented X4 Precautions: fall. Bed Mobility: Supine to Sit: Complete [place] Transfers: Sit to Stand: Stand By Assist;Requires Verbal Cues for Safety;Requires Verbal Cues for Technique Stand to Sit: Stand By Assist;Requires Verbal Cues for Safety;Requires Verbal Cues for Technique Car Transfer: Stand By Assist;Requires Verbal Cues for Safety;Requires Verbal Cues for Technique Transfer Device: Gait belt;Walker-2 Wheeled Mobility: Distance Ambulated (ft): 150 FEET (ft and 60 ft.) Ambulation: Assistive Device: Gait Belt;Walker-2 Wheeled Ambulation: Level of Assistance: Stand By Assist;Requires Verbal Cues for Safety;Requires Verbal Cues for Technique Ambulation: Gait Deviations: Veronica - Decreased;Heel Strike - Decreased;Push Off - Decreased;Step Length - Decreased (very little change in knee ROM t/o gt cycle.) Weight Bearing Status-RLE: Weight Bearing as Tolerated Curb: Assistive Device: Gait Belt;Walker-2 Wheeled (x 2 trials.) Curb: Level of Assistance: Stand By Assist;Requires Verbal Cues for Safety;Requires Verbal Cues forTechnique Balance: Standing - Static: Good;With Both Upper Extremity's Support Standing - Dynamic: Good;With Both Upper Extremity's Support ROM: ROM Terminal Knee Extension: 0 ROM Knee Flexion: 68 Exercise: 10 reps per protocol. Can SLR indep. Activity Tolerance: Activity Tolerance: Tolerates ADLs without rest breaks BP: 117/68 Vital signs: BP taken on R UE Before mobility During mobility After mobility BP 116/78 Position Semi dickens's ASSESSMENT: pt was seen for mobility progression this POD 1 TKA. She is motivated and cooperative. She needed ed on importance of inc knee flex and using ww until HH progresses her AD as pt asked if she could go short distances without her ww now. Pt otherwise needed safety reminders for sit/stand/amb and for car/curb technique. Did well with cues. Can amb fluid pattern but pretty stiff legged R when amb. ROM is fair. Pt states she has her main bedroom and full bath on main level and does not go upstairs. Over all ready and safe for home. Goals reviewed. Pt in chair after RX with tray table, phone and call light in reach. Ice therapy applied after treatment. Call light and phone in reach with chair alarm activated. All lines, monitors, IV's, equipment in place and intact pre and post visit. RNTiffanie, notified of patient's performance/location end of session. Pt was educated in PT plan of care, fall precautions, and benefits of OOB activity/PT. Please refer to the Filed Flowsheet PT Treatment for further details. Mobility Status-White Board Mobility Status Communication-White Board Updated?: Yes If this is the last Physical Therapy visit, this note serves as the discharge summary. NEIDA Burr, 2202 * Moo Zaidi MD - 10/19/2023 10:53 AM CDT IM PROGRESS NOTE Admit Date: 10/18/2023 8:11 AM Hospital Day: 1 PCP:Jhonny Brennan DO SUBJECTIVE Patient is seen and examined at bedside No acute events overnight, pain control. Working well with therapy Assessment and Plan Postoperative management: P.r.n. antiemetics and analgesics for supportive care DJD status post right TKA Continue postop care as per protocol Encourage incentive spirometer PT OT eval Continue p.r.n. analgesics for pain control and anti emetics as needed DVT Prophylaxis as per orthopedic surgeon This note was transcribed using a voice recognition system without human lace finisher. This report has not been adjusted for typographical, grammatical, and syntax mistakes by a trained medical sales consultant. Moo Zaidi MD [employer] Exam Patient Vitals for the past 12 hrs: Temp Pulse Resp BP 10/19/23 0357 98.1 ??F (36.7 ??C) 81 -- 125/63 10/19/23 0835 -- 68 18 115/69 Supplemental Oxygen (last filed value): O2 L/M: 6 (10/18/23 1245) General appearance: alert, cooperative, no distress Head/eyes: No deformity, non icteric conjunctiva CVS: regular rhythm, normal S1 and S2, without murmurs, rubs or gallops Pulm: breath sounds normal and symmetric; no rales or wheezes GI: soft without mass, non-tender, with normal bowel sounds MSK: no clubbing, cyanosis or edema Neuro: Alert and oriented x 3 ,No gross focal deficits Data Recent Labs Component Name 08/23/23 0935 SODIUM 142 POTASSIUM 4.4 CHLORIDE 106 CO2 25 BUN 16 CREATININE 0.76 GLUCOSE 106* CALCIUM 10.2 Recent Labs Component Name 08/23/23 0935 WBC 8.0 HGB 13.6 HCT 41.0 PLTCOUNT 249 Microbiology: Blood cultures: Invalid input(s): BCRESULT Urine cultures: No results for input(s): LABURIN in the last 168 hours. Respiratory cultures: Invalid input(s): RESPIRCULT Wound and Tissue cultures: Invalid input(s): WOUNDEEPCULT Invalid input(s): TISSUECULT Invalid input(s): FLUIDCULT Imaging Studies: No results found. Current Meds SCHEDULED MEDICATIONS: 0.9% NaCl injection 3 mL, Intracatheter, q8h acetaminophen (Tylenol) tablet 1,000 mg, Oral, TID aspirin chew tablet 81 mg, Oral, BID docusate sodium (Colace) capsule 100 mg, Oral, BID polyethylene glycol 3350 (Miralax) packet 17 g, Oral, QDAY [COMPLETED] ceFAZolin (Ancef) 2 g in 0.9% NaCl IV 50 mL IVPB, Intravenous, Once [COMPLETED] ePHEDrine 50 MG/ML injection 25 mg, Intramuscular, Now [COMPLETED] tranexamic acid (Cyklokapron) injection 1,000 mg, Intravenous, Once [] tranexamic acid (Cyklokapron) injection 1,000 mg, Intravenous, Once [START ON 10/20/2023] bisacodyl EC (Dulcolax) tablet 5 mg, Oral, Once [START ON 10/21/2023] bisacodyl EC (Dulcolax) tablet 10 mg, Oral, Once CONTINUOUS MEDICATIONS: 0.9% NaCl infusion, Intravenous, Continuous Peripheral IV Left Hand (Active) Placement Date/Time: 10/18/23 0859 Size (Gauge): 20 G Orientation: Left Location: Hand Site Prep: Chlorhexidine Local Anesthetic Used?: Injectable Number of days: 1 Procedural Site (Incision) Anterior;Right Knee (Active) Date/Time: 10/18/23 1217 Orientation: Anterior;Right Location: Knee Wound/Incision Description: incision Number of days: 0 READMISSION RISK SCORE is N/A at 10:53 AM 10/19/2023. * Kell Farrar RN - 10/19/2023 10:44 AM CDT Care Coordination Initial Assessment Anticipated Discharge Date: 10/19/23 Transportation at Discharge: Family Anticipated level of care at discharge: Home Health Care Anticipated level of care provider: [facility] Prior to admission level of care: Home Prior to admit provider: None Patient Goals: Home with [facility] Plans: Discharge needs identified. See progress notes for details. Case Management to follow for discharge planning. Comments: Presents with Degenerative joint disease, right knee. Pt drives and is Independent with mobility and self care, lives in one level home with spouse. Has WW. D/C Plan at this time: Home with spouse and [facility]. Spouse to provide transportation. 10/19/2023: POD #1 Right Total Knee Arthroplasty PT following. Lives with: Spouse Physical Limitations: None Requires Assistance With: None Preferred Pharmacy: [facility] [address] [phone] [address] [phone] Advance Directive: No Advance Directive Information Given: Will be offered upon admission Would you like assistance on completing and executing or revising an Advance Directive?: No READMISSION RISK SCORE is N/A at 10:48 AM 10/19/2023. 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 No Patient/Family provided with list of resources? No Preferred Provider / High Quality Network List given?: No Reason for provider choice: Out of Area, Pt. choice - Physician driven Equipment at Home: Chair-Shower;Walker-2 Wheeled;Cane-Straight;Wheelchair-Standard;Distributor Cleaner;Sock Aid;Shoe Horn-Long Handled List DME pt. requires but does not have.: None Web Content Developer Referral: No Will continue to follow. For any questions or needs please contact: Name: Kell Farrar RN [phone] * Kayla Gtz RN - 10/19/2023 10:26 AM CDT Ortho POD # 1 Awake, Alert Afebrile VTE Prophylaxis: ASA 81 mg BID Nausea/ Vomiting: none Incisional Area: Silver dressing c/d/i No calf pain, wiggles toes Pain controlled Con't PT- WBAT OK to dc home today with [facility] Follow up in office in 3 weeks * Bandar Aguiar RN - 10/19/2023 6:25 AM CDT SHIFT SUMMARY -Alka is alert & oriented x4. -Vital signs stable. -Voiding without difficulties via BR -Silver dressing dry,clean and intact to right knee -SBA with walker -Pain control with Ashlie 10 mg, scheduled tylenol, rest & ice/cold therapy -possible for home today care continues * Bandar Aguiar RN - 10/19/2023 1:26 AM CDT Problem: Pain/Discomfort Goal: Patient exhibits reduced pain/discomfort as evidenced by pain scores Outcome: Progressing Note: Alka's pain is controlled with prn pain meds, rest & ice/cold therapy Problem: Fall Risk Goal: Patient will remain free of falls Outcome: Progressing Flowsheets (Taken 10/19/2023 0125) Safe Room Set Up Verified: Yes - I attest safe room set up is verified Note: Alka understands the use of the call light for assistance, call light & belongings withinreach, bed in lowest position, fall mat in place, bed alarm activated, side rails elevated x 2 Problem: Procedural Site (Incision) Care Goal: Incision remains intact with edges well approximated Outcome: Progressing Note: Silver dressing is dry, clean & intact, no signs of infection noted * Magali Hurley RN - 10/18/2023 9:03 PM CDT Day Shift Summary - Deepti is alert and orientated x4 - VSS - Pt remained free from falls this shift - Pt has not voided post op yet, arrival to the floor was 1420 - Last BM 10/17 - Pain managed with ice and Ashlie 10mg and IV toradol x1 - Ambulating with SBA - Silver dressing is c/d/I to right knee Pt eager to DC home with [facility] tomorrow Magali Hurley RN * Magali Hurley RN - 10/18/2023 9:01 PM CDT Problem: Pain/Discomfort Goal: Patient exhibits reduced pain/discomfort as evidenced by pain scores Outcome: Progressing Note: Pts pain is managed well with medication, rest, ice, and elevation. Problem: Fall Risk Goal: Patient will remain free of falls Outcome: Progressing Note: Pt remained free from falls this shift. Call light and personal items within reach and education to call for assistance has been understood. Problem: Procedural Site (Incision) Care Goal: Incision remains intact with edges well approximated Outcome: Progressing Note: Pt remains free from fever, chills, and s/s of infection at the incision site * Laura Bobo PT - 10/18/2023 6:43 PM CDT Physical Therapy Evaluation PT orders received. Chart reviewed for diagnosis and medical systems review. Nursing consented for PT. Explained purpose of PT and patient consented to participate in therapy. RECOMMENDATIONS/PLAN: Continue acute PT. Possible DC after AM session pending , RN recommendation. Patient has 2WW for home use. PT Discharge Recommendations: Patient would benefit from ongoing therapy with home health Recommended Transportation Method: Private Car PPE worn by staff: gloves PPE worn by patient: gown - patient, clean AM-PAC Basic mobility score for this patient is Mobility Raw Score:: 18 SUBJECTIVE: I'm starting to feel some soreness in the knee . Patient Arthroplasty Liaison (PAL): Spouse Home Situation: Type of Residence: Private Residence Lives with:: Spouse Steps to Enter: 1 Home Structure: Two Story;Basement Equipment at Home: Chair-Shower;Walker-2 Wheeled;Cane-Straight;Wheelchair-Standard;Distributor Cleaner;Sock Aid;Shoe Horn-Long Handled Prior Level of Functioning: Mobility: Ambulate-In Community;Ambulate-In Home ;Independent;Without Assistive Device;Driving Fallen Within 6 Mos: No Have Help at Home?: Yes, there is help at home now How often is assistance provided?: Spouse assist IADLS Activity at Home: Active;Driving Hearing Exceptions: No impairment Who manages medications?: Patient Pain Assessment: Pain Location #1 Pain Scale/Observation: Numeric (0-10) Pain Rating Score #1: 4 Sedation Level #1: 1-Awake and alert Functional Goal: Ability to adequately rest Functional Goal Met?: Yes Pain Location : Knee Pain Orientation: Right Pain Quality: Aching Aggravating Factors: Activity;Movement Relieved By: Ice;Rest;Medications Pain Intervention(s): Non-pharmacological Non-pharmacological interventions: Cold;Rest;Elevated Behaviors/Assumed Pain Present : Guarding Patient/family stated goal: Consents to working with therapy. OBJECTIVE: Precautions: Fall, skin Cognition: Orientation Level: Oriented X4 Cognition: Follows Commands-Consistent;Processing-delayed Level of Consciousness-Adult: Alert ROM and Strength: AROM - Right Lower Extremity: Exceptions Strength - Right Lower Extremity: Exceptions AROM - Left Lower Extremity: Within Functional Limits Strength - Left Lower Extremity: Within Functional Limits Sensation: B LE SILT Tone: B LE WNL Balance: Sitting - Static: Good;With Both Upper Extremity's Support Standing - Static: Good;With Both Upper Extremity's Support Bed Mobility: Supine to Sit: Stand By Assist;Requires Verbal Cues for Technique Sit to Supine: Activity Does Not Occur Transfers: Sit to Stand: Stand By Assist;Requires Verbal Cues for Technique Stand to Sit: Stand By Assist;Requires Verbal Cues for Technique Transfer Device: Gait belt;Walker-2 Wheeled Mobility: Distance Ambulated (ft): 140 FEET Ambulation: Assistive Device: Gait Belt;Walker-2 Wheeled Ambulation: Level of Assistance: Stand By Assist;Requires Verbal Cues for Technique Ambulation: Gait Deviations: Antalgic;Veronica - Decreased;Step Length - Decreased Weight Bearing Status-RLE: Weight Bearing as Tolerated Exercise: Educated significance of AP, QS, use of IS every hour Activity Tolerance: SpO2: 94 % Pulse: 72 BP: 113/70 ASSESSMENT: Calm, cooperative. Tolerated Rx well. Steady 2WW gait with proper step thru pattern. Denies lightheadedness, dizziness, nausea. Patient resting bedside chair end of session. LE elevated with ice. Call light and phone in reach with chair alarm activated. All lines, monitors, IV's, equipment in place and intact pre and post visit. ERIN De Los Santos notified of patient's performance/location end of session. Pt educated in PT plan of care, fall precautions, and benefits of OOB activity. Educated safe transfers, proper 2WW gait, proper leg positioning supine, seated . Problem list: decreased strength, decreased balance, decreased endurance, decreased ROM, decreased , pain Functional limitations: Decreased independence with ambulation/transfers, decreased safety with functional mobility. Rationale for therapy: Patient will benefit from PT to address the above issues. Please refer to Filed Flowsheet PT Evaluation for further details. Refer to Plan of Care for PT goals. SWATI Sanchez [phone] * Zee Kenny RN - 10/18/2023 9:59 AM CDT [facility] is out of service area with patient's zip code, and therefore is unable to accept patient for home health services. Please see Juan's note for refer out details. Thank you. Zee Kenny [place] counter pocket trimmer [facility] Health at Home [phone] * Juan Cabrera - 10/04/2023 2:46 PM CDT Home Health Agency: [facility] Confirmed: 10/04/2023 Start Date: 10/19/2023 Contact: Yuliya [phone] Fax:[phone] * Juan Cabrera - 09/28/2023 7:16 AM CDT -Verified patient does not have preferred HH agency: Does not have preference -Advised our first choice is [facility], if unavailable would find one that works with insurance: Is ok with that -Advised will receive e-mail regarding [place], advised to complete before surgery: Reminded/Completed -Verified e-mail: Yes -Recovering at home: at home -Reminder to bring payment for RX-Yes * Juan Cabrera - 09/27/2023 11:41 AM CDT First Attempt: Called to verify [facility] agency choice, recovering at home, wellbe information N/A L/M documented in this encounter H&P Notes * Aaron Rodriguez MD - 10/18/2023 10:13 AM CDT This patient? s prior H&P was reviewed, the patient was examined and no change has occurred in the patient's condition since the prior H&P was completed. Aaron Rodriguez MD Source Note - Sal Parker PA-C - 10/17/2023 2:22 PM CDT [facility] PRE-OPERATIVE HISTORY AND PHYSICAL PATIENT NAME: Maxine Phillips : 1965 CSN: [id number] HISTORY OF PRESENT ILLNESS: This is a 58 year old year-old female seen at the office regarding her right knee. The right knee has been symptomatic for over 4 years. Her pain is stabbing and intermittent along medial joint line. The pain is relieved with rest for a short period of time. Radiograph of the right knee reveals grade 3 DJD along the medial joint line and grade 3 DJD along the patella-femoral joint. The right knee shows a varus angle of 7 degrees. Osteophytes are noticed on the medial/lateral femoral condyles and tibial plateau; with osteophytes off the superior and inferior pole ofpatella. Patient is failing conservative treatment for over the last 2yrs of rest, ice, anti-inflammatories, corticosteroid injections, and home exercise program. Formal physical therapy is contraindicated to the patients significant arthritis. Due to her pain and end stage arthritis has led to a decline in the patients home exercise program and daily activities (cleaning house, getting in and out of a chair, going up and down steps). The patients instability has put them at greater risk of falling, going up and down steps and walking on uneven surfaces. We are going to proceed with a right knee replacement. We have discussed surgical procedure, risks, complications, and postoperative expect ations associated with this procedure. PAST MEDICAL HISTORY: No past medical history on file. PAST SURGICAL HISTORY: No past surgical history on file. HOME MEDICATIONS: Prior to Admission medications Medication Sig Start Date End Date Taking? Authorizing Provider acetaminophen (Tylenol) 500 MG tablet Take 1 (one) tablet by mouth every 4 hours as needed for Fever or Pain Maximum allowable Acetaminophen amount = 4 Grams (4000 mg) / 24 hours. Provider, MD Isabel celecoxib (CeleBREX) 200 MG capsule Take 1 (one) capsule by mouth 2 times daily 05/13/23 Sal Parker PA-C Other Keto Vitamin Provider, MD Isabel No current facility-administered medications for this encounter. Current Outpatient Medications Medication Sig Dispense Refill acetaminophen (Tylenol) 500 MG tablet Take 1 (one) tablet by mouth every 4 hours as needed for Fever or Pain Maximum allowable Acetaminophen amount = 4 Grams (4000 mg) / 24 hours. celecoxib (CeleBREX) 200 MG capsule Take 1 (one) capsule by mouth 2 times daily 60 capsule 5 Other Keto Vitamin ALLERGIES: No Known Allergies PHYSICAL EXAMINATION: Patient is A & O x 3 MUSCULOSKELETAL: Good range of motion of the hips. Right knee, shows varus knee moderate effusion, no evidence of infection with point tenderness and crepitation along the medial-lateral joint line. Passive range of motion 5-112, with mid flexion instability. EXTREMITIES: Skin is without rashes, lesions or ulcerations. Neurovascularly intact distally, lowerextremities. MENTAL: Within normal limits. HEENT/NECK, LUNGS, HEART, ABDOMEN, NEUROLOGICAL: Please see H&P done in surgical evaluation center DIAGNOSTIC DATA: Please refer to HPI. IMPRESSION: End stage degenerative joint disease of the right knee, failing conservative treatment of corticosteroid injections, anti-inflammatories, decline in overall activity as well as failing home exercise program. PLAN: We are going to proceed with a right total knee replacement. We have discussed with the patient surgical procedure, risks, complications, and postoperative expectations associated with this. Implant selection discussed and models shown. Sal Parker PA-C * Aaron Rodriguez MD - 10/18/2023 9:07 AM CDT This patient? s prior H&P was reviewed, the patient was examined and no change has occurred in the patient's condition since the prior H&P was completed. Aaron Rodriguez MD Source Note - DayannagiovaniSal PA-C - 10/17/2023 2:22 PM CDT [facility] PRE-OPERATIVE HISTORY AND PHYSICAL PATIENT NAME: Maxine Phillips : 1965 CSN: [id number] HISTORY OF PRESENT ILLNESS: This is a 58 year old year-old female seen at the office regarding her right knee. The right knee has been symptomatic for over 4 years. Her pain is stabbing and intermittent along medial joint line. The pain is relieved with rest for a short period of time. Radiograph of the right knee reveals grade 3 DJD along the medial joint line and grade 3 DJD along the patella-femoral joint. The right knee shows a varus angle of 7 degrees. Osteophytes are noticed on the medial/lateral femoral condyles and tibial plateau; with osteophytes off the superior and inferior pole ofpatella. Patient is failing conservative treatment for over the last 2yrs of rest, ice, anti-inflammatories, corticosteroid injections, and home exercise program. Formal physical therapy is contraindicated to the patients significant arthritis. Due to her pain and end stage arthritis has led to a decline in the patients home exercise program and daily activities (cleaning house, getting in and out of a chair, going up and down steps). The patients instability has put them at greater risk of falling, going up and down steps and walking on uneven surfaces. We are going to proceed with a right knee replacement. We have discussed surgical procedure, risks, complications, and postoperative expect ations associated with this procedure. PAST MEDICAL HISTORY: No past medical history on file. PAST SURGICAL HISTORY: No past surgical history on file. HOME MEDICATIONS: Prior to Admission medications Medication Sig Start Date End Date Taking? Authorizing Provider acetaminophen (Tylenol) 500 MG tablet Take 1 (one) tablet by mouth every 4 hours as needed for Fever or Pain Maximum allowable Acetaminophen amount = 4 Grams (4000 mg) / 24 hours. Provider, MD Isabel celecoxib (CeleBREX) 200 MG capsule Take 1 (one) capsule by mouth 2 times daily 05/13/23 Sal Parker PA-C Other Keto Vitamin Provider, MD Isabel No current facility-administered medications for this encounter. Current Outpatient Medications Medication Sig Dispense Refill acetaminophen (Tylenol) 500 MG tablet Take 1 (one) tablet by mouth every 4 hours as needed for Fever or Pain Maximum allowable Acetaminophen amount = 4 Grams (4000 mg) / 24 hours. celecoxib (CeleBREX) 200 MG capsule Take 1 (one) capsule by mouth 2 times daily 60 capsule 5 Other Keto Vitamin ALLERGIES: No Known Allergies PHYSICAL EXAMINATION: Patient is A & O x 3 MUSCULOSKELETAL: Good range of motion of the hips. Right knee, shows varus knee moderate effusion, no evidence of infection with point tenderness and crepitation along the medial-lateral joint line. Passive range of motion 5-112, with mid flexion instability. EXTREMITIES: Skin is without rashes, lesions or ulcerations. Neurovascularly intact distally, lowerextremities. MENTAL: Within normal limits. HEENT/NECK, LUNGS, HEART, ABDOMEN, NEUROLOGICAL: Please see H&P done in surgical evaluation center DIAGNOSTIC DATA: Please refer to HPI. IMPRESSION: End stage degenerative joint disease of the right knee, failing conservative treatment of corticosteroid injections, anti-inflammatories, decline in overall activity as well as failing home exercise program. PLAN: We are going to proceed with a right total knee replacement. We have discussed with the patient surgical procedure, risks, complications, and postoperative expectations associated with this. Implant selection discussed and models shown. Sal Parker PA-C * Sal Parker PA-C - 10/17/2023 2:22 PM CDT [facility] PRE-OPERATIVE HISTORY AND PHYSICAL PATIENT NAME: Maxine Phillips : 1965 CSN: [id number] HISTORY OF PRESENT ILLNESS: This is a 58 year old year-old female seen at the office regarding her right knee. The right knee has been symptomatic for over 4 years. Her pain is stabbing and intermittent along medial joint line. The pain is relieved with rest for a short period of time. Radiograph of the right knee reveals grade 3 DJD along the medial joint line and grade 3 DJD along the patella-femoral joint. The right knee shows a varus angle of 7 degrees. Osteophytes are noticed on the medial/lateral femoral condyles and tibial plateau; with osteophytes off the superior and inferior pole ofpatella. Patient is failing conservative treatment for over the last 2yrs of rest, ice, anti-inflammatories, corticosteroid injections, and home exercise program. Formal physical therapy is contraindicated to the patients significant arthritis. Due to her pain and end stage arthritis has led to a decline in the patients home exercise program and daily activities (cleaning house, getting in and out of a chair, going up and down steps). The patients instability has put them at greater risk of falling, going up and down steps and walking on uneven surfaces. We are going to proceed with a right knee replacement. We have discussed surgical procedure, risks, complications, and postoperative expect ations associated with this procedure. PAST MEDICAL HISTORY: No past medical history on file. PAST SURGICAL HISTORY: No past surgical history on file. HOME MEDICATIONS: Prior to Admission medications Medication Sig Start Date End Date Taking? Authorizing Provider acetaminophen (Tylenol) 500 MG tablet Take 1 (one) tablet by mouth every 4 hours as needed for Fever or Pain Maximum allowable Acetaminophen amount = 4 Grams (4000 mg) / 24 hours. Provider, MD Isabel celecoxib (CeleBREX) 200 MG capsule Take 1 (one) capsule by mouth 2 times daily 05/13/23 Sal Parker PA-C Other Keto Vitamin Provider, MD Isabel No current facility-administered medications for this encounter. Current Outpatient Medications Medication Sig Dispense Refill acetaminophen (Tylenol) 500 MG tablet Take 1 (one) tablet by mouth every 4 hours as needed for Fever or Pain Maximum allowable Acetaminophen amount = 4 Grams (4000 mg) / 24 hours. celecoxib (CeleBREX) 200 MG capsule Take 1 (one) capsule by mouth 2 times daily 60 capsule 5 Other Keto Vitamin ALLERGIES: No Known Allergies PHYSICAL EXAMINATION: Patient is A & O x 3 MUSCULOSKELETAL: Good range of motion of the hips. Right knee, shows varus knee moderate effusion, no evidence of infection with point tenderness and crepitation along the medial-lateral joint line. Passive range of motion 5-112, with mid flexion instability. EXTREMITIES: Skin is without rashes, lesions or ulcerations. Neurovascularly intact distally, lowerextremities. MENTAL: Within normal limits. HEENT/NECK, LUNGS, HEART, ABDOMEN, NEUROLOGICAL: Please see H&P done in surgical evaluation center DIAGNOSTIC DATA: Please refer to HPI. IMPRESSION: End stage degenerative joint disease of the right knee, failing conservative treatment of corticosteroid injections, anti-inflammatories, decline in overall activity as well as failing home exercise program. PLAN: We are going to proceed with a right total knee replacement. We have discussed with the patient surgical procedure, risks, complications, and postoperative expectations associated with this. Implant selection discussed and models shown. Sal Parker PA-C documented in this encounter Consult Notes * Kell Farrar RN - 10/19/2023 10:43 AM CDTAssociated Order(s): IP CONSULT TO CASE MANAGEMENT Consult noted. See CM/SW progress note. * Grant Lala - 10/18/2023 2:49 PM CDTAssociated Order(s): IP CONSULT TO PASTORAL CARE SUMMARY & RECOMMENDATION Patient appreciates Juvenile Correctional Officer visit but declines any spiritual concernsat this time Reason for Encounter Order response Spiritual Assessment Content (Social, emotional, helen--concerns/hopes/resources) Interventions Conversation. Coping skills Observed Outcomes Gratitude;Feels Emanuel;Coping Well Future Plan Will Remain Available if Requested Thank you for involving me in the care of Alka Phillips Rev. Grant Lala Juvenile Correctional Officer 10/18/23 1432 Spiritual In what ways can we or our chaplains presently attend to your spiritual, emotional or cultural needs? Juvenile Correctional Officer Visit Visit Type Assessment Date 10/18/23 Juvenile Correctional Officer Visiting Patient Grant [place] Pastoral Care Reason for Visit Order Response Pastoral Care Visit Type(s) Initial Visit Encounter Type Patient and Family Spiritual History Belief System [facility] Community Family and Friends Support Spiritual Assessment Spiritual Assessment Content Interventions Pastoral Care Conversation Plan/Outcome Plan Will Remain Available if Requested Outcomes Gratitude;Feels Emanuel;Coping Well * Yoon Woodard MD - 10/18/2023 2:21 PM CDTAssociated Order(s): IP CONSULT TO HOSPITALIST Initial Hospitalist Consult Note Date of Consult: 10/18/2023 Patient's Primary Care Physician: Jhonny Brennan DO Physician Requesting Consult: Aaron Rodriguez MD Reason for Consultation: Evaluation of patient's medical problems, which include perioperative management Name: Alka Phillips Age: [age] year old Sex: female Chief Complaint/History of Present Illness Patient is , a 58 year old female, who has been admitted to [facility] after a successful right TKA under Spinal anaesthesia. Pt's right knee has been symptomatic for a long time , aggravated with activity and patient was reportedly failing conservative management. Pt is awake and alert , denies any CP, SOB, palpitations . Has no cough, hemoptysis, Denies nausea, vomiting ,abdominal pain, Has no fever or chills, rash , flank pain , Has no lightheadedness, dizziness, no headache, blurred vision /diplopia, photophobia . No past medical history on file. Past Surgical History: Procedure Laterality Date Skin Biopsy Right arm No family history on file. Social History Occupational History Not on file Tobacco Use Smoking status: Never Smokeless tobacco: Never Vaping Use Vaping Use: Never used Substance and Sexual Activity Alcohol use: Yes Alcohol/week: 7.0 standard drinks of alcohol Types: 7 Standard drinks or equivalent per week Drug use: Not on file Sexual activity: Not on file Medications Prior to Admission Medication Sig Dispense Refill acetaminophen (Tylenol) 500 MG tablet Take 1 (one) tablet by mouth every 4 hours as needed for Fever or Pain Maximum allowable Acetaminophen amount = 4 Grams (4000 mg) / 24 hours. celecoxib (CeleBREX) 200 MG capsule Take 1 (one) capsule by mouth 2 times daily 60 capsule 5 Other Keto Vitamin No Known Allergies Review of Systems A 14 point review of systems was reviewed and was negative except as described in HPI. 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 Alert , No facial asymmetry, clear speech. No focal motor deficts Psych: has normal mood and affect SKIN: No rash,incision + Data I have reviewed the patient's labs and the review is significant for: Recent Labs Component Name 08/23/23 0935 WBC 8.0 HGB 13.6 HCT 41.0 PLTCOUNT 249 Recent Labs Component Name 08/23/23 0935 SODIUM 142 POTASSIUM 4.4 CHLORIDE 106 CO2 25 BUN 16 CREATININE 0.76 GLUCOSE 106* CALCIUM 10.2 Assessment and Plan Records available in chart ( paper and electronic) were reviewed. Home medications were reviewed Postoperative management: P.r.n. antiemetics and analgesics for supportive care DJD status post right TKA Continue postop care as per protocol Encourage incentive spirometer PT OT eval Continue p.r.n. analgesics for pain control and anti emetics as needed DVT Prophylaxis as per orthopedic surgeon Treatment plan discussed with patient at bedside. All questions were answered. Orders placed in chart. CC: Jhonny Brennan DO, Aaron Rodriguez MD documented in this encounter OR Notes * Operative - Aaron Rodriguez MD - 10/18/2023 11:37 AM CDT Operative Report Right Total Knee PATIENT: Alka Phillips : 1965 ADMIT DATE: 10/18/2023 DATE OF SURGERY: 10/18/2023 PHYSICIAN: Aaron Rodriguez MD SURGEON: Aaron Rodriguez MD [facility] RN: Sal Parker PA-C The skilled assistance of the mid level provider was necessary for the effective and successful completion of this case. The physician assistant reading teacher was essential for the proper positioning, manipulationof instruments, proper exposure, manipulation of tissue and wound closure. PREOPERATIVE DIAGNOSIS: Degenerative joint disease, right knee. POSTOPERATIVE DIAGNOSIS: Degenerative joint disease, right knee. PROCEDURE: Right Total Knee Arthroplasty with the Mini-Subvastus Approach. TYPE OF ANESTHESIA: Spinal DESCRIPTION OF PROCEDURE: The patient was brought into the operating room and placed under spinal anesthetic. The right lower extremity was placed under tourniquet control, prepped and draped in a standard fashion. An anterior incision was created from the superior pole of the patella down to the tibial tubercle.This was taken down to the extensor mechanism. A mini- subvastus approach was used. The patella was slid laterally and a 9 mm drill was used to obtain access into the distal femur and proximal tibia. A 5 degree valgus cut was created off the distal femur and this was sized to 65. The anterior, posterior chamfer cuts were created. The posterior osteophytes were removed with a half inch osteotome. Attention was placed on the proximal tibia. An intermedullary alignment lachelle was used to make a 90-90 cut off the superior aspect of the tibia. This was sized to a 71 component. A trial reduction showed excellent stability with a 12 poly trial. The patella reamed down for a XS patellar component. The tibia was finished off for an I-beam component. The bony cut surfaces were pulsatile evacuated. The cement was mixed and digitally pressurizedinto the tibia, femur and patella. As each component was placed, excess bone cement was removed. The knee was brought into full extension with a 12 poly trial to allow the cement to cure under compression. The knee was copiously irrigated. Electrocautery was used for hemostasis. A combination of Marcaine, epinephrine and morphine was injected outside the capsule. The final 12 poly was selected, placed and locked into position. The knee was taken through a stable range of motion. The extensor mec hanism was closed with #2 Ethibond at the angle and #1 barbed suture for the remainder. The skin was reapproximated with 2-0 Vicryl and closed with issac. A bulky dressing and Cryo-Cuff were applied. The patient was awakened and taken to recovery in stable condition. Drains: None EBL: Minimal Specimens Removed: None Disposition: PACU Complications: None Aaron Rodriguez MD documented in this encounter Plan of Treatment Scheduled Referrals Name Type Priority Associated Diagnoses Orde r Schedule AMB REFERRAL TO HOME HEALTH CARE Outpatient Referral Routine Primary osteoarthritis of right knee Ordered: 10/18/2023 documented as of this encounter Procedures Procedure Name Priority Date/Time Associated Diagnosis Comments WI TOTAL KNEE REPLACEMENT 10/18/2023 10:49 AM CDT Special Needs BIOMET (RAFFI) NOTIFIED-NB documented in this encounter Visit Diagnoses Not on filedocumented in this encounter Administered Medications Inactive Administered Medications - up to 3 most recent administrations Medication Order MAR Action Action Date Dose Rate Site 0.9% NaCl infusion at 100 mL/hr, Intravenous, CONTINUOUS, Starting on Wed10/18/23 at 1300, Until Wed10/19/23 at 1355, Post-op $ New Bag/Syringe 10/18/2023 3:53 PM CDT 100 mL/hr 0.9% NaCl injection 3 mL 3 mL, Intracatheter, EVERY 8 HOURS, First dose on Wed10/18/23 at 1400, Until Discontinued, Post-op $ Given 10/19/2023 4:03 AM CDT 3 mL 0.9% NaCl injection 3 mL 3 mL, Intracatheter, PRN, Other, peripheral line flush, Starting on Wed10/18/23 at 1240, Until Wed10/19/23 at 1355, Flush after each use and blood draws., Post-op 0.9% NaCl irrigation solution PRN, Starting on Wed10/18/23 at 1141, Until Wed10/18/23 at 1238, Intra-op $ Given 10/18/2023 11:41 AM CDT 1,000 mL Operative Site acetaminophen (Tylenol) suppository 650 mg 650 mg, Rectal, EVERY 6 HOURS PRN, Mild Pain, Starting on Wed10/18/23 at 1240, Until Wed10/19/23 at 1355, May use if unable to tolerate oral Patient preference for lesser PRN pain meds may be honored when the patient requests a less strong medication, a lower dose, or a less intrusive route of administration when the lesser drug, dose and route have been ordered for the patient. This patient request must be documented in the MAR. If both oral and IV options are ordered for the same pain severity, give oral first unless patient cannot tolerate oral intake, Post-op acetaminophen (Tylenol) tablet 1,000 mg 1,000 mg, Oral, 3 TIMES DAILY, First dose on Wed10/18/23 at 1400, Until Discontinued, Patient preference for lesser PRN pain meds may be honored when the patient requests a less strong medication, a lower dose, or a less intrusive route of administration when the lesser drug, dose and route have been ordered for the patient. This patient request must be documented in the MAR. If both oral and IV options are ordered for the same pain severity, give oral first unless patient cannot tolerate oral intake, Post-op $ Given 10/19/2023 12:16 PM CDT 1,000 mg $ Given 10/19/2023 8:29 AM CDT 1,000 mg $ Given 10/18/2023 8:24 PM CDT 1,000 mg acetaminophen (Tylenol) tablet 650 mg 650 mg, Oral, EVERY 6 HOURS PRN, Mild Pain, Starting on Wed10/18/23 at 1240, Until Wed10/19/23 at 1355, Patient preference for lesser PRN pain meds may be honored when the patient requests a less strong medication, a lower dose, or a less intrusive route of administration when the lesser drug, dose and route have been ordered for the patient. This patient request must be documented in the MAR. If both oral and IV options are ordered for the same pain severity, give oral first unless patient cannot tolerate oral intake, Post-op acetaminophen (Tylenol) tablet 650 mg 650 mg, Oral, EVERY 4 HOURS PRN, Fever, For temperature GREATER than 101 , Starting on Wed10/18/23 at 1240, Until Wed10/19/23 at 1355, Patient preference for lesser PRN pain meds may be honored when the patient requests a less strong medication, a lower dose, or a less intrusive route of administration when the lesser drug, dose and route have been ordered for the patient. This patient request must be documented in the MAR. If both oral and IV options are ordered for the same pain severity, give oral first unless patient cannot tolerate oral intake, Post-op artificial tears ophthalmic solution 2 drop 2 drop, Each Eye, EVERY 6 HOURS PRN, Dry Eyes, Starting on Wed10/18/23 at 1240, Until Wed10/19/23 at 1355, Post-op aspirin chew tablet 81 mg 81 mg, Oral, 2 TIMES DAILY, First dose on Wed10/18/23 at 2100, Until Discontinued, Post-op $ Given 10/19/2023 8:30 AM CDT 81 mg bisacodyl (Dulcolax) suppository 10 mg 10 mg, Rectal, ONCE PRN, Constipation, if no BM 24 hours after oral bisacodyl, 1 dose, Starting on Wed10/18/23 at 1240, Until Wed10/19/23 at 1355, Post-op bisacodyl EC (Dulcolax) tablet 10 mg 10 mg, Oral, ONCE, 1 dose, On Wed10/21/23 at 0800, Hold if patient has already had a post-op bowel movement, Post-op bisacodyl EC (Dulcolax) tablet 5 mg 5 mg, Oral, ONCE, 1 dose, On Wed10/20/23 at 0800, Hold if patient has already had a post-op bowel movement, Post-op bisacodyl EC (Dulcolax) tablet 5 mg 5 mg, Oral, ONCE PRN, Constipation, no BM for 72 hours, 1 dose, Starting on Wed10/18/23 at 1240, Until Wed10/19/23 at 1355, Do not take within 1 hour of antacid, milk or milk product. Do not chew, crush or cut in half., Post-op BUPivacaine PF (Marcaine PF) 0.25 % injection PRN, Starting on Wed10/18/23 at 1141, Until Wed10/18/23 at 1238, Intra-op $ Given 10/18/2023 11:41 AM CDT 30 mL Operative Site calcium carbonate (Tums) chew tablet 2 tablet 2 tablet, Oral, EVERY 4 HOURS PRN, GI Upset, Starting on Wed10/18/23 at 1240, Until Wed10/19/23 at 1355, Post-op celecoxib (CeleBREX) capsule 400 mg 400 mg, Oral, ONCE, 1 dose, On Wed10/18/23 at 0845, Patient preference for lesser PRN pain meds may be honored when the patient requests a less strong medication, a lower dose, or a less intrusive route of administration when the lesser drug, dose and route have been ordered for the patient. This patient request must be documented in the MAR. If both oral and IV options are ordered for the same pain severity, give oral first unless patient cannot tolerate oral intake, Pre-op $ Given 10/18/2023 8:52 AM CDT 400 mg diphenhydrAMINE (Benadryl) capsule 25 mg 25 mg, Oral, EVERY 6 HOURS PRN, Itching, Starting on Wed10/18/23 at 1240, Until Wed10/19/23 at 1355, Post-op docusate sodium (Colace) capsule 100 mg 100 mg, Oral, 2 TIMES DAILY, First dose on Wed10/18/23 at 1245, Until Discontinued, Hold for loose stools, Post-op $ Given 10/19/2023 8:31 AM CDT 100 mg $ Given 10/18/2023 8:24 PM CDT 100 mg $ Given 10/18/2023 3:52 PM CDT 100 mg ePHEDrine 50 MG/ML injection 25 mg 25 mg, Intramuscular, NOW, 1 dose, On Wed10/18/23 at 1400, Must be diluted prior to use. $ Given 10/18/2023 1:59 PM CDT 25 mg Right Deltoid famotidine (Pepcid) tablet 20 mg 20 mg, Oral, ONCE, 1 dose, On Wed10/18/23 at 0845, Pre-op $ Given 10/18/2023 8:52 AM CDT 20 mg HYDROmorphone (Dilaudid) injection 0.4 mg 0.4 mg, Intravenous, EVERY 3 HOURS PRN, Severe Pain, Starting on Wed10/18/23 at 1240, Until Wed10/19/23 at 1355, if unable to take PO or no improvement in pain score after any lesser PO or IV pain medication administered Patient preference for lesser PRN pain meds may be honored when the patient requests a less strong medication, a lower dose, or a less intrusive route of administration when the lesser drug, dose and route have been ordered for the patient. This patient request must be documented in the MAR. If both oral and IV options are ordered for the same pain severity, give oral first unless patient cannot tolerate oral intake, Post-op ketorolac (Toradol) injection 15 mg 15 mg, Intravenous, EVERY 6 HOURS PRN, Mild Pain, Moderate Pain, 4 doses, Starting on Wed10/18/23 at 1240, Until Wed10/19/23 at 1355, if unable to take PO or no improvement in pain score after any PO pain medication administered Patient preference for lesser PRN pain meds may be honored when the patient requests a less strong medication, a lower dose, or a less intrusive route of administration when the lesser drug, dose and route have been ordered for the patient. This patient request must be documented in the MAR. If both oral and IV options are ordered for the same pain severity, give oral first unless patient cannot tolerate oral intake, Post-op $ Given 10/19/2023 6:37 AM CDT 15 mg $ Given 10/18/2023 4:48 PM CDT 15 mg lactated ringers infusion at 100 mL/hr, Intravenous, CONTINUOUS, Starting on Wed10/18/23 at 0845, Until Wed10/18/23 at 1411, Pre-op $ New Bag/Syringe 10/18/2023 1:50 PM CDT 10 0 mL/hr lactated ringers infusion at 20 mL/hr, Intravenous, PRE-OP CONTINUOUS, Starting on Wed10/18/23 at 0845, Until Wed10/18/23 at 1411, Please place order for second bag of LR for all robotic surgeries, and all carotid endarterectomies., Pre-op Restarted 10/18/2023 12:27 PM CDT $ New Bag/Syringe 10/18/2023 8:52 AM CDT 20 mL/ hr lidocaine PF (Xylocaine MPF) 1 % injection 0.2 mL 0.2 mL, Infiltration, PRE-OP ONCE, 1 dose, On Wed10/18/23 at 0845, May be used (0.5 ml locally to anesthetize prior to insertion). For patients not allergic to local anesthetics., Pre-op $ Given 10/18/2023 8:53 AM CDT 0.2 mL melatonin tablet 3 mg 3 mg, Oral, AT BEDTIME PRN - MR X 1, Insomnia, Starting on Wed10/18/23 at 1240, Until Wed10/19/23 at 1355, may repeat x 1 after 30 minutes if no benefit of no sleep maintenance, Post-op metoclopramide (Reglan) injection 5 mg 5 mg, Intravenous, EVERY 6 HOURS PRN, Nausea/Vomiting, Starting on Wed10/18/23 at 1240, Until Wed10/19/23 at 1355, If no relief from ondansetron (ZOFRAN), use metoclopramide (REGLAN) in addition to ondansetron., Post-op metoclopramide (Reglan) injection 5 mg 5 mg, Intramuscular, EVERY 6 HOURS PRN, Nausea/Vomiting, Starting on Wed10/18/23 at 1240, Until Wed10/19/23 at 1355, If no relief from ondansetron (ZOFRAN), use metoclopramide (REGLAN) in addition to ondansetron. Use IM route if IV is unavailable., Post-op morphine (PF) injection PRN, Starting on Wed10/18/23 at 1141, Until Wed10/18/23 at 1238, Intra-op $ Given 10/18/2023 11:41 AM CDT 10 mg Operative Site naloxone (Narcan) injection 0.4 mg 0.4 mg, Intravenous, PRN, Other, If unable or difficult to arouse patient, if respiratory depression is present (less than 8 breaths/min), or if SPO2 less than 93% (and patient was above this at baseline), Starting on Wed10/18/23 at 1240, Until Wed10/19/23 at 1355, Mix 0.4 mg Naloxone in 9 mL Normal Saline for slow IV push. Administer dilute Naloxone solution IV very slowly (5 mL over 2 minutes) while observing the patient response and titrating to effect. If no response, call Rapid Response, continue IV Naloxone at the same rate up to a total of 0.8 mg or 20 mL of diluted Naloxone, and notify physician immediately., Post-op ondansetron (disintegrating) (Zofran ODT) tablet 4 mg 4 mg, Oral, EVERY 6 HOURS PRN, Nausea/Vomiting, Starting on Wed10/18/23 at 1240, Until Wed10/19/23 at 1355, Dissolved orally on tongue Dissolved orally on tongue, Post-op ondansetron (Zofran) injection 4 mg 4 mg, Intravenous, EVERY 6 HOURS PRN, Nausea/Vomiting, Starting on Wed10/18/23 at 1240, Until Wed10/19/23 at 1355, Administer IV if patient is NPO, actively vomiting, or unable to swallow., Post-op oxyCODONE (immediate release) (Roxicodone) tablet 10 mg 10 mg, Oral, EVERY 4 HOURS PRN, Severe Pain, Starting on Wed10/18/23 at 1240, Until Wed10/19/23 at 1355, Patient preference for lesser PRN pain meds may be honored when the patient requests a less strong medication, a lower dose, or a less intrusive route of administration when the lesser drug, dose and route have been ordered for the patient. This patient request must be documented in the MAR. If both oral and IV options are ordered for the same pain severity, give oral first unless patient cannot tolerate oral intake, Post-op $ Given 10/19/2023 12:16 PM CDT 10 mg $ Given 10/19/2023 8:30 AM CDT 10 mg $ Given 10/19/2023 4:03 AM CDT 10 mg oxyCODONE (immediate release) (Roxicodone) tablet 5 mg 5 mg, Oral, EVERY 4 HOURS PRN, Moderate Pain, or for pain 30 min to 1 hour prior to painful procedures/therapy, Starting on Wed10/18/23 at 1240, Until Wed10/19/23 at 1355, Patient preference for lesser PRN pain meds may be honored when the patient requests a less strong medication, a lower dose, or a less intrusive route of administration when the lesser drug, dose and route have been ordered for the patient. This patient request must be documented in the MAR. If both oral and IV options are ordered for the same pain severity, give oral first unless patient cannot tolerate oral intake, Post-op polyethylene glycol 3350 (Miralax) packet 17 g 17 g, Oral, DAILY, First dose on Wed10/18/23 at 1245, Until Discontinued, Mix in 8 ounces of water, juice, soda, coffee or tea prior to administration, Post-op $ Given 10/19/2023 8:29 AM CDT 17 g polyethylene glycol 3350 (Miralax) packet 17 g 17 g, Oral, DAILY PRN, Constipation, Starting on Wed10/18/23 at 1240, Until Wed10/19/23 at 1355, Mix in 8 ounces of water, juice, soda, coffee or tea prior to administration, Post-op povidone-iodine (Betadine) 5 % solution Nasal, ONCE, 1 dose, On Wed10/18/23 at 0845, 1. Use a tissue to clean the inside of both nostrils including the inside tip of nostril. Discard. 2. Tilting the bottle slightly, dip one swab into solution and stir vigorously for 10 seconds. Withdraw the swab slowly to avoid wiping solution off during removal. 3. Insert swab comfortably into one nostril and rotate for 15 seconds covering all surfaces. Then focus on the inside tip of nostril and rotate for an additional 15 seconds. (swab 1) 4. Using a new swab: repeat steps 2 and 3 with the other nostril. (swab 2) 5. Repeat the application in both nostrils using a fresh swab each time. (swabs 3 and 4) 6. Do not blow nose. If solution drips out of nose, it can be lightly dabbed with a tissue., Pre-op $ Given 10/18/2023 8:52 AM CDT scopolamine (Transderm-Scop) 1 patch 1 patch, Administer over 72 Hours, PRE-OP ONCE, 1 dose, On Wed10/18/23 at 0845, For patients younger than 80 years old, with a hx of postoperative nausea and vomiting or having total joint, with no history of glaucoma. Apply patch behind the ear, do not cut patch, only 1 patch should be worn at a time and remove old patch before applying new patch.This patch may contain metal and is not compatible with MRI. Notify radiology of patch location upon arrival to MRI. Each patch contains 1.5 mg scopolamine base and is formulated to deliver 1 mg of scopolamine over 72 hours. $ Applied 10/18/2023 8:52 AM CDT 1 patch Behind Right Ear sodium phosphate rectal (Fleet Saline) enema 133 mL 133 mL (1 enema), Rectal, ONCE PRN, Constipation, if no BM 4 hours after bisacodyl suppository, 1 dose, Starting on Wed10/18/23 at 1240, Until Wed10/19/23 at 1355, Post-op throat lozenge 1 lozenge 1 lozenge, Oral, EVERY 2 HOURS PRN, Sore Throat, Starting on Wed10/18/23 at 1240, Until Wed10/19/23 at 1355, Post-op tranexamic acid (Cyklokapron) injection 1,000 mg 1,000 mg, Intravenous, ONCE, 1 dose, On Wed10/18/23 at 1330, When administering IV, do not inject more rapidly than 1 mL/min to avoid hypotension. $ Given 10/18/2023 1:14 PM CDT 1,000 mg vancomycin (Vancocin) injection PRN, Starting on Wed10/18/23 at 1141, Until Wed10/18/23 at 1238, Intra-op $ Given 10/18/2023 11:41 AM CDT 500 mg Operative Site documented in this encounter Active and Recently Administered Medications Times are shown in CDT. Scheduled Medication Order 10/17/2023 10/18/2023 10/19/2023 0.9% NaCl injection 3 mL(Linked Group 1) 3 mL, Intracatheter, EVERY 8 HOURS, First dose on Wed10/18/23 at 1400, Until Discontinued, Post-op 1513 (Not Administered - Provider: Magali Hurley RN - Reason: IV Currently Infusing)2137 (Not Administered - Provider: Bandar Aguiar RN - Reason: IV Currently Infusing) 0403 ($ Given - Provider: Bandar Aguiar RN)1203 (Not Administered - Provider: Tiffanie Christensen RN - Reason: Loss of Access) acetaminophen (Tylenol) tablet 1,000 mg 1,000 mg, Oral, 3 TIMES DAILY, First dose on Wed10/18/23 at 1400, Until Discontinued, Patient preference for lesser PRN pain meds may be honored when the patient requests a less strong medication, a lower dose, or a less intrusive route of administration when the lesser drug, dose and route have been ordered for the patient. This patient request must be documented in the MAR. If both oral and IV options are ordered for the same pain severity, give oral first unless patient cannot tolerate oral intake, Post-op 1552 ($ Given - Provider: Magali Hurley RN)2024 ($ Given - Provider: Bandar Aguiar RN) 0829 ($ Given - Provider: Tiffanie Christensen, ERIN)1216 ($ Given - Provider: Tiffanie Christensen, ERIN) aspirin chew tablet 81 mg 81 mg, Oral, 2 TIMES DAILY, First dose on Wed10/18/23 at 2100, Until Discontinued, Post-op 2025 (Not Administered - Provider: Bandar Aguiar RN - Reason: See Comments - Comment: post op day 0) 0830 ($ Given - Provider: Tiffanie Christensen RN) bisacodyl EC (Dulcolax) tablet 10 mg 10 mg, Oral, ONCE, 1 dose, On Radha 10/21/23 at 0800, Hold if patient has already had a post-op bowel movement, Post-op bisacodyl EC (Dulcolax) tablet 5 mg 5 mg, Oral, ONCE, 1 dose, On 10/20/23 at 0800, Hold if patient has already had a post-op bowel movement, Post-op ceFAZolin (Ancef) 2 g in 0.9% NaCl IV 50 mL IVPB (COMPLETED) 2 g, at 100 mL/hr, Intravenous, ONCE, 1 dose, On Wed10/18/23 at 0845, Administer??within 60 minutes??before surgical incision to ensure adequate antibiotic concentration at surgical sites at the time of incision.??Antibiotic infusion must be completed ZERO-TEN minutes?? prior to incision or tourniquet, Indication for anti-infective therapy: Surgical prophylaxis, Pre-op 1125 ($ New Bag/Syringe - Provider: Art Acevedo APRN-[employer]IP SC[employer]ER) celecoxib (CeleBREX) capsule 400 mg (COMPLETED) 400 mg, Oral, ONCE, 1 dose, On Wed10/18/23 at 0845, Patient preference for lesser PRN pain meds may be honored when the patient requests a less strong medication, a lower dose, or a less intrusive route of administration when the lesser drug, dose and route have been ordered for the patient. This patient request must be documented in the MAR. If both oral and IV options are ordered for the same pain severity, give oral first unless patient cannot tolerate oral intake, Pre-op 0852 ($ Given - Provider: Amarilis Hughes RN) docusate sodium (Colace) capsule 100 mg 100 mg, Oral, 2 TIMES DAILY, First dose on Wed10/18/23 at 1245, Until Discontinued, Hold for loose stools, Post-op 1552 ($ Given - Provider: Magali Hurley RN)2023 ($ Given - Provider: Bandar Aguiar RN) 0831 ($ Given - Provider: Tiffanie Christensen, RN) ePHEDrine 50 MG/ML injection 25 mg (COMPLETED) 25 mg, Intramuscular, NOW, 1 dose, On Wed10/18/23 at 1400, Must be diluted prior to use. 1359 ($ Given - Provider: Teresa Owsald, ERIN) famotidine (Pepcid) tablet 20 mg (COMPLETED) 20 mg, Oral, ONCE, 1 dose, On Wed10/18/23 at 0845, Pre-op 0852 ($ Given - Provider: Amarilis Hughes, ERIN) lidocaine PF (Xylocaine MPF) 1 % injection 0.2 mL (COMPLETED) 0.2 mL, Infiltration, PRE-OP ONCE, 1 dose, On Wed10/18/23 at 0845, May be used (0.5 ml locally to anesthetize prior to insertion). For patients not allergic to local anesthetics., Pre-op 0853 ($ Given - Provider: Amarilis Hughes, ERIN) polyethylene glycol 3350 (Miralax) packet 17 g 17 g, Oral, DAILY, First dose on Wed10/18/23 at 1245, Until Discontinued, Mix in 8 ounces of water, juice, soda, coffee or tea prior to administration, Post-op 1553 (Not Administered - Provider: Magali Hurley RN - Reason: Refused-Patient) 0829 ($ Given - Provider: Tiffanie Christensen RN) povidone-iodine (Betadine) 5 % solution (COMPLETED) Nasal, ONCE, 1 dose, On Wed10/18/23 at 0845, 1. Use a tissue to clean the inside of both nostrils including the inside tip of nostril. Discard. 2. Tilting the bottle slightly, dip one swab into solution and stir vigorously for 10 seconds. Withdraw the swab slowly to avoid wiping solution off during removal. 3. Insert swab comfortably into one nostril and rotate for 15 seconds covering all surfaces. Then focus on the inside tip of nostril and rotate for an additional 15 seconds. (swab 1) 4. Using a new swab: repeat steps 2 and 3 with the other nostril. (swab 2) 5. Repeat the application in both nostrils using a fresh swab each time. (swabs 3 and 4) 6. Do not blow nose. If solution drips out of nose, it can be lightly dabbed with a tissue., Pre-op 0852 ($ Given - Provider: Amarilis Hughes RN) scopolamine (Transderm-Scop) 1 patch(Linked Group 2) 1 patch, Administer over 72 Hours, PRE-OP ONCE, 1 dose, On Wed10/18/23 at 0845, For patients younger than 80 years old, with a hx of postoperative nausea and vomiting or having total joint, with no history of glaucoma. Apply patch behind the ear, do not cut patch, only 1 patch should be worn at a time and remove old patch before applying new patch.This patch may contain metal and is not compatible with MRI. Notify radiology of patch location upon arrival to MRI. Each patch contains 1.5 mg scopolamine base and is formulated to deliver 1 mg of scopolamine over 72 hours. 0852 ($ Applied - Provider: Amarilis Hughes RN) 1225 (Due: Removed - Provider: Generic, Auto Release - Comment: Time automatically adjusted from order being discontinued) tranexamic acid (Cyklokapron) injection 1,000 mg (COMPLETED) 1,000 mg, Intravenous, ONCE, 1 dose, On Wed10/18/23 at 1330, When administering IV, do not inject more rapidly than 1 mL/min to avoid hypotension. 1314 ($ Given - Provider: Teresa Oswald, ERIN) Continuous Medication Order 10/17/2023 10/18/2023 10/19/2023 0.9% NaCl infusion at 100 mL/hr, Intravenous, CONTINUOUS, Starting on Wed10/18/23 at 1300, Until Wed10/19/23 at 1355, Post-op 1553 ($ New Bag/Syringe - Provider: Magali Hurley RN) lactated ringers infusion (CANCELED) at 100 mL/hr, Intravenous, CONTINUOUS, Starting on Wed10/18/23 at 0845, Until Wed10/18/23 at 1411, Pre-op 1350 ($ New Bag/Syringe - Provider: Teresa Oswald RN) lactated ringers infusion (CANCELED) at 20 mL/hr, Intravenous, PRE-OP CONTINUOUS, Starting on Wed10/18/23 at 0845, Until Wed10/18/23 at 1411, Please place order for second bag of LR for all robotic surgeries, and all carotid endarterectomies., Pre-op 0852 ($ New Bag/Syringe - Provider: Amarilis Hughes RN)1226 (Paused - Provider: TREVER Montez - Comment: Switch to gravity)1227 (Restarted - Provider: TREVER Montez) PRN Medication Order 10/17/2023 10/18/2023 10/19/2023 0.9% NaCl injection 3 mL(Linked Group 1) 3 mL, Intracatheter, PRN, Other, peripheral line flush, Starting on Wed10/18/23 at 1240, Until Wed10/19/23 at 1355, Flush after each use and blood draws., Post-op 0.9% NaCl irrigation solution (CANCELED) PRN, Starting on Wed10/18/23 at 1141, Until Wed10/18/23 at 1238, Intra-op 1141 ($ Given - Provider: Aaron Rodriguez MD) acetaminophen (Tylenol) suppository 650 mg(Linked Group 3) 650 mg, Rectal, EVERY 6 HOURS PRN, Mild Pain, Starting on Wed10/18/23 at 1240, Until Wed10/19/23 at 1355, May use if unable to tolerate oral Patient preference for lesser PRN pain meds may be honored when the patient requests a less strong medication, a lower dose, or a less intrusive route of administration when the lesser drug, dose and route have been ordered for the patient. This patient request must be documented in the MAR. If both oral and IV options are ordered for the same pain severity, give oral first unless patient cannot tolerate oral intake, Post-op acetaminophen (Tylenol) tablet 650 mg(Linked Group 3) 650 mg, Oral, EVERY 6 HOURS PRN, Mild Pain, Starting on Wed10/18/23 at 1240, Until Wed10/19/23 at 1355, Patient preference for lesser PRN pain meds may be honored when the patient requests a less strong medication, a lower dose, or a less intrusive route of administration when the lesser drug, dose and route have been ordered for the patient. This patient request must be documented in the MAR. If both oral and IV options are ordered for the same pain severity, give oral first unless patient cannot tolerate oral intake, Post-op acetaminophen (Tylenol) tablet 650 mg 650 mg, Oral, EVERY 4 HOURS PRN, Fever, For temperature GREATER than 101 , Starting on Wed10/18/23 at 1240, Until Wed10/19/23 at 1355, Patient preference for lesser PRN pain meds may be honored when the patient requests a less strong medication, a lower dose, or a less intrusive route of administration when the lesser drug, dose and route have been ordered for the patient. This patient request must be documented in the MAR. If both oral and IV options are ordered for the same pain severity, give oral first unless patient cannot tolerate oral intake, Post-op artificial tears ophthalmic solution 2 drop 2 drop, Each Eye, EVERY 6 HOURS PRN, Dry Eyes, Starting on Wed10/18/23 at 1240, Until Wed10/19/23 at 1355, Post-op bisacodyl (Dulcolax) suppository 10 mg 10 mg, Rectal, ONCE PRN, Constipation, if no BM 24 hours after oral bisacodyl, 1 dose, Starting on Wed10/18/23 at 1240, Until Wed10/19/23 at 1355, Post-op bisacodyl EC (Dulcolax) tablet 5 mg 5 mg, Oral, ONCE PRN, Constipation, no BM for 72 hours, 1 dose, Starting on Wed10/18/23 at 1240, Until Wed10/19/23 at 1355, Do not take within 1 hour of antacid, milk or milk product. Do not chew, crush or cut in half., Post-op BUPivacaine PF (Marcaine PF) 0.25 % injection (CANCELED) PRN, Starting on Wed10/18/23 at 1141, Until Wed10/18/23 at 1238, Intra-op 1141 ($ Given - Provider: Aaron Rodriguez MD) calcium carbonate (Tums) chew tablet 2 tablet 2 tablet, Oral, EVERY 4 HOURS PRN, GI Upset, Starting on Wed10/18/23 at 1240, Until Wed10/19/23 at 1355, Post-op diphenhydrAMINE (Benadryl) capsule 25 mg 25 mg, Oral, EVERY 6 HOURS PRN, Itching, Starting on Wed10/18/23 at 1240, Until Wed10/19/23 at 1355, Post-op HYDROmorphone (Dilaudid) injection 0.4 mg 0.4 mg, Intravenous, EVERY 3 HOURS PRN, Severe Pain, Starting on Wed10/18/23 at 1240, Until Wed10/19/23 at 1355, if unable to take PO or no improvement in pain score after any lesser PO or IV pain medication administered Patient preference for lesser PRN pain meds may be honored when the patient requests a less strong medication, a lower dose, or a less intrusive route of administration when the lesser drug, dose and route have been ordered for the patient. This patient request must be documented in the MAR. If both oral and IV options are ordered for the same pain severity, give oral first unless patient cannot tolerate oral intake, Post-op ketorolac (Toradol) injection 15 mg 15 mg, Intravenous, EVERY 6 HOURS PRN, Mild Pain, Moderate Pain, 4 doses, Starting on Wed10/18/23 at 1240, Until Wed10/19/23 at 1355, if unable to take PO or no improvement in pain score after any PO pain medication administered Patient preference for lesser PRN pain meds may be honored when the patient requests a less strong medication, a lower dose, or a less intrusive route of administration when the lesser drug, dose and route have been ordered for the patient. This patient request must be documented in the MAR. If both oral and IV options are ordered for the same pain severity, give oral first unless patient cannot tolerate oral intake, Post-op 1648 ($ Given - Provider: Magali Hurley RN) 0637 ($ Given - Provider: Bandar Aguiar RN) melatonin tablet 3 mg 3 mg, Oral, AT BEDTIME PRN - MR X 1, Insomnia, Starting on Wed10/18/23 at 1240, Until Wed10/19/23 at 1355, may repeat x 1 after 30 minutes if no benefit of no sleep maintenance, Post-op metoclopramide (Reglan) injection 5 mg 5 mg, Intravenous, EVERY 6 HOURS PRN, Nausea/Vomiting, Starting on Wed10/18/23 at 1240, Until Wed10/19/23 at 1355, If no relief from ondansetron (ZOFRAN), use metoclopramide (REGLAN) in addition to ondansetron., Post-op metoclopramide (Reglan) injection 5 mg 5 mg, Intramuscular, EVERY 6 HOURS PRN, Nausea/Vomiting, Starting on Wed10/18/23 at 1240, Until Wed10/19/23 at 1355, If no relief from ondansetron (ZOFRAN), use metoclopramide (REGLAN) in addition to ondansetron. Use IM route if IV is unavailable., Post-op morphine (PF) injection (CANCELED) PRN, Starting on Wed10/18/23 at 1141, Until Wed10/18/23 at 1238, Intra-op 1141 ($ Given - Provider: Aaron Rodriguez MD) naloxone (Narcan) injection 0.4 mg 0.4 mg, Intravenous, PRN, Other, If unable or difficult to arouse patient, if respiratory depression is present (less than 8 breaths/min), or if SPO2 less than 93% (and patient was above this at baseline), Starting on Wed10/18/23 at 1240, Until Wed10/19/23 at 1355, Mix 0.4 mg Naloxone in 9 mL Normal Saline for slow IV push. Administer dilute Naloxone solution IV very slowly (5 mL over 2 minutes) while observing the patient response and titrating to effect. If no response, call Rapid Response, continue IV Naloxone at the same rate up to a total of 0.8 mg or 20 mL of diluted Naloxone, and notify physician immediately., Post-op ondansetron (disintegrating) (Zofran ODT) tablet 4 mg 4 mg, Oral, EVERY 6 HOURS PRN, Nausea/Vomiting, Starting on Wed10/18/23 at 1240, Until Wed10/19/23 at 1355, Dissolved orally on tongue Dissolved orally on tongue, Post-op ondansetron (Zofran) injection 4 mg 4 mg, Intravenous, EVERY 6 HOURS PRN, Nausea/Vomiting, Starting on Wed10/18/23 at 1240, Until Wed10/19/23 at 1355, Administer IV if patient is NPO, actively vomiting, or unable to swallow., Post-op oxyCODONE (immediate release) (Roxicodone) tablet 10 mg(Linked Group 4) 10 mg, Oral, EVERY 4 HOURS PRN, Severe Pain, Starting on Wed10/18/23 at 1240, Until Wed10/19/23 at 1355, Patient preference for lesser PRN pain meds may be honored when the patient requests a less strong medication, a lower dose, or a less intrusive route of administration when the lesser drug, dose and route have been ordered for the patient. This patient request must be documented in the MAR. If both oral and IV options are ordered for the same pain severity, give oral first unless patient cannot tolerate oral intake, Post-op 155 ($ Given - Provider: Magali Hurley RN)2022 ($ Given - Provider: Bandar Aguiar RN) 0015 ($ Given - Provider: Bandar Aguiar RN)0403 ($ Given - Provider: Bandar Aguiar RN)0830 ($ Given - Provider: Tiffanie Christensen, ERIN)1216 ($ Given - Provider: Tiffanie Christensen, ERIN) oxyCODONE (immediate release) (Roxicodone) tablet 5 mg(Linked Group 4) 5 mg, Oral, EVERY 4 HOURS PRN, Moderate Pain, or for pain 30 min to 1 hour prior to painful procedures/therapy, Starting on Wed10/18/23 at 1240, Until Wed10/19/23 at 1355, Patient preference for lesser PRN pain meds may be honored when the patient requests a less strong medication, a lower dose, or a less intrusive route of administration when the lesser drug, dose and route have been ordered for the patient. This patient request must be documented in the MAR. If both oral and IV options are ordered for the same pain severity, give oral first unless patient cannot tolerate oral intake, Post-op 155 (See Alternative - Provider: Magali Hurley RN)2022 (See Alternative - Provider: Bandar Aguiar RN) 0015 (See Alternative - Provider: Bandar Aguiar RN)0403 (See Alternative - Provider: Bandar Aguiar RN)0830 (See Alternative - Provider: Tiffanie Christensen, ERIN)1216 (See Alternative - Provider: Tiffanie Christensen, ERIN) polyethylene glycol 3350 (Miralax) packet 17 g 17 g, Oral, DAILY PRN, Constipation, Starting on Wed10/18/23 at 1240, Until Wed10/19/23 at 1355, Mix in 8 ounces of water, juice, soda, coffee or tea prior to administration, Post-op sodium phosphate rectal (Fleet Saline) enema 133 mL 133 mL (1 enema), Rectal, ONCE PRN, Constipation, if no BM 4 hours after bisacodyl suppository, 1 dose, Starting on Wed10/18/23 at 1240, Until Wed10/19/23 at 1355, Post-op throat lozenge 1 lozenge 1 lozenge, Oral, EVERY 2 HOURS PRN, Sore Throat, Starting on Wed10/18/23 at 1240, Until Wed10/19/23 at 1355, Post-op vancomycin (Vancocin) injection (CANCELED) PRN, Starting on Wed10/18/23 at 1141, Until Wed10/18/23 at 1238, Intra-op 1141 ($ Given - Provider: Aaron Rodriguez MD) Linked Groups Order Group 1: SALINE LOCK, INSERT AND MAINTAIN (CANCELED) Routine, CONTINUOUS, Starting on Wed10/18/23 at 1245, Until Specified, Post-op, New collection And 0.9% NaCl injection 3 mLJump to med 3 mL, Intracatheter, EVERY 8 HOURS, First dose on Wed10/18/23 at 1400, Until Discontinued, Post-op And 0.9% NaCl injection 3 mLJump to med 3 mL, Intracatheter, PRN, Other, peripheral line flush, Starting on Wed10/18/23 at 1240, Until Wed10/19/23 at 1355, Flush after each use and blood draws., Post-op Group 2: scopolamine (Transderm-Scop) 1 patchJump to med 1 patch, Administer over 72 Hours, PRE-OP ONCE, 1 dose, On Wed10/18/23 at 0845, For patients younger than 80 years old, with a hx of postoperative nausea and vomiting or having total joint, with no history of glaucoma. Apply patch behind the ear, do not cut patch, only 1 patch should be worn at a time and remove old patch before applying new patch.This patch may contain metal and is not compatible with MRI. Notify radiology of patch location upon arrival to MRI. Each patch contains 1.5 mg scopolamine base and is formulated to deliver 1 mg of scopolamine over 72 hours. And scopolamine patch placement confirmation (CANCELED) Transdermal, 2 TIMES DAILY, 730 doses, First dose on Wed10/18/23 at 0900, Last dose on Wed10/16/24 at 2100, Patient has a patch to be confirmed on transition to inpatient and 2 times daily., Pre-op Group 3: acetaminophen (Tylenol) tablet 650 mgJump to med 650 mg, Oral, EVERY 6 HOURS PRN, Mild Pain, Starting on Wed10/18/23 at 1240, Until Wed10/19/23 at 1355, Patient preference for lesser PRN pain meds may be honored when the patient requests a less strong medication, a lower dose, or a less intrusive route of administration when the lesser drug, dose and route have been ordered for the patient. This patient request must be documented in the MAR. If both oral and IV options are ordered for the same pain severity, give oral first unless patient cannot tolerate oral intake, Post-op Or acetaminophen (Tylenol) suppository 650 mgJump to med 650 mg, Rectal, EVERY 6 HOURS PRN, Mild Pain, Starting on Wed10/18/23 at 1240, Until Wed10/19/23 at 1355, May use if unable to tolerate oral Patient preference for lesser PRN pain meds may be honored when the patient requests a less strong medication, a lower dose, or a less intrusive route of administration when the lesser drug, dose and route have been ordered for the patient. This patient request must be documented in the MAR. If both oral and IV options are ordered for the same pain severity, give oral first unless patient cannot tolerate oral intake, Post-op Group 4: oxyCODONE (immediate release) (Roxicodone) tablet 5 mgJump to med 5 mg, Oral, EVERY 4 HOURS PRN, Moderate Pain, or for pain 30 min to 1 hour prior to painful procedures/therapy, Starting on Wed10/18/23 at 1240, Until Wed10/19/23 at 1355, Patient preference for lesser PRN pain meds may be honored when the patient requests a less strong medication, a lower dose, or a less intrusive route of administration when the lesser drug, dose and route have been ordered for the patient. This patient request must be documented in the MAR. If both oral and IV options are ordered for the same pain severity, give oral first unless patient cannot tolerate oral intake, Post-op Or oxyCODONE (immediate release) (Roxicodone) tablet 10 mgJump to med 10 mg, Oral, EVERY 4 HOURS PRN, Severe Pain, Starting on 10/18/23 at 1240, Until Wed10/19/23 at 1355, Patient preference for lesser PRN pain meds may be honored when the patient requests a less strong medication, a lower dose, or a less intrusive route of administration when the lesser drug, dose and route have been ordered for the patient. This patient request must be documented in the MAR. If both oral and IV options are ordered for the same pain severity, give oral first unless patient cannot tolerate oral intake, Post-op documented in this encounter Care Teams Knife Setter Grinder Machine Relationship Specialty Start Date End Date Jhonny Brennan DO [address] [place] [id number] PCP - General Family Medicine 04/13/23 documented as of this encounter
--- OUTSIDE RECORDS SUMMARY | 2024-02-20 23:25 | XMS_ITS | Encounter Summary ---
Author Organization [facility] Address [address] [place] [address] Care Team Providers Care Automatic Quilling Machine Operator Name Role Phone Libertadlulu Jhonny PINA Primary Care Provider [phone] Reason for Visit * Reason Onset Date Comments Appointment 05/05/2023 Encounter Details Date Type Department Care Team (Late st Contact Info) Description 05/05/2023 Telephone [facility] Orthoped[facility] [id number] [place] [id number] [place] [id number] [id number] Appointment Social History Tobacco Use Types Packs/Day Years Used Date Smoking Tobacco: Never Smokeless Tobacco: Never Sex and Gender Information Value Date Recorded Sex Assigned at Not on file Gender Identity Not on file Sexual Orientation Not on file documented as of this encounter Miscellaneous Notes * Telephone Encounter - Eleanor Fam - 05/06/2023 9:04 AM CST Called patient back and rescheduled appt for 05/13/23 ESSING MGR * Telephone Encounter - Kayla Fernandez - 05/05/2023 4:20 PM PROCESSING MGR Who is calling? Patient What is the reason for call? Patient calling wanting to r/s for an earlier appt. Patient says that her knees are painful with a burning sensation. Expected Response from the Clinic? ( ex. Call back, etc..) Call back requested please. Did you notify caller it would take 24-48 hours for the office to get back to them? YES ESSING MGR documented in this encounter Plan of Treatment Not on file documented as of this encounter Visit Diagnoses Not on filedocumented in this encounter Care Teams Automatic Quilling Machine Operator Relationship Specialty Start Date End Date Jhonny Brennan DO [address] [place] [id number] PCP - General Family Medicine 04/13/23 documented as of this encounter
--- OUTSIDE RECORDS SUMMARY | 2024-02-20 23:25 | XMS_ITS | Encounter Summary ---
Author Organization [facility] Address [address] [address] Care Team Providers Care Blue Crabber Name Role Phone LibertadJhonny lawson Primary Care Provider Encounter Details Date Type Department Care Team (Latest Contact Info) Description 08/23/2023 9:08 AM CDT - 08/23/2023 11:59 PM CDT Hospital Encounter [facility] [address] [place] [address] [place] [address] [place], [place] [id number] Discharge Disposition: Home or Self Care Social History Tobacco Use Types Packs/Day Years [...] Reading Time Taken Comments Blood Pressure 137/70 08/23/2023 9:46 AM CDT Pulse 68 08/23/2023 9:46 AM CDT Temperature 36.2 ??C (97.1 ??F) 08/23/2023 9:46 AM CD T Respiratory Rate - - Oxygen Saturation - - Inhaled Oxygen Concentration - - Weight 67.2 kg (148 lb 3.2 oz) 08/23/2023 9:42 A M CDT Height 154.9 cm (5' 1 ) 08/23/2023 9:42 AM CDT Body Mass Index 28 08/23/2023 9:42 AM CDT documented in this encounter Discharge Instructions * Patient Instructions* Meliza Wilhelm RN - 08/23/2023 9:46 AM CDT Date of surgery: 10/18/2023 Arrival Time: 0830 am Time of surgery: 1000am You will be notified if your arrival time changes Please report to the [facility] Building. Take the elevators across from outpatient registration to the second floor, exit left out of the elevator and enter the Outpatient Surgery waiting room on the left hand side. Sign in and be seated. Bring a copy of your living will or power of trademark attorney form if we do not have a current copy. Day of surgery instructions Beginning at midnight the day of your surgery, NO SOLID FOODS. You may consume clear liquids after midnight until 2 hours before your scheduled arrival time to the hospital. Clear liquid diet includes: Any liquid you can see through, water, flavored water (coconut water OK), hot or ice tea, black coffee, clear fat free broth, apple juice, cranberry juice, grape juice, gelatin, ice pops without fruit pieces, pulp or seeds. What is NOT allowed on Clear Liquid diet Liquids you cannot see through, no milk, creamer or sugar in coffee, no milk products, almond milk,soy milk, no orange juice, grapefruit juice, tomato juice, and no carbonated or alcoholic beverages. No gum, mints, or candy. You may brush your teeth, swish and spit. No tobacco products after midnight and avoid alcohol 24 hours prior to surgery. If you use a CPAP/BiPAP machine, please bring it with you on the day of surgery (for overnight stay). If you use home oxygen continuously or intermittently, please bring your home O2 tank with you to the hospital. Do not bring or wear jewelry (including body piercings). Leave valuables at home Bring your eyeglasses. Do not wear contacts. Take a shower using the antibacterial soap, following the instructions given. Dress in clean clothing appropriate to wear after your surgery. Arrange for a responsible adult to bring you to the hospital, and to drive you home. Bring you insurance information and proof of identification, such as your waste collection driver's license, with you to the hospital, and any necessary co-insurance. Leave weapons at home (pocket knives, sharps, guns, pepper spray, etc). If you are having any problems on the day of surgery, please call the Ambulatory Surgery desk at [phone]. When you arrive to the hospital the day of your surgery you will enter the [facility]. Masking optional and no longer required. VISITOR GUIDELINES: Visiting hours once/if you are admitted to the hospital after surgery are from 8AM-8PM. PREOPERATIVE CHLORHEXIDINE (CHG) ? BATHING INSTRUCTIONS Before surgery, you can play an important role in your own health. Because skin is not sterile, we need to be sure that your skin is as free of germs as possible before surgery. You can reduce the number of germs on your skin by carefully washing before surgery. Following these instructions will help you be sure that your skin is clean before surgery IMPORTANT: You will need to shower with a special soap called Chlorohexidine gluconate (CHG) ?. A common brand name for this soap is Hibiclens, but any brand is acceptable to use. The soap will come in a liquid. This may be purchased at any local pharmacy. If you are allergic to Chlorohexidine use Dial antibacterial soap for your shower/bath. Shower or bathe with CHG? the night before and the morning of surgery. Do not shave the area of your body where surgery will be performed. Wash your hair usual with your normal shampoo. Rinse your hair and body thoroughly after you shampoo remove all shampoo residues. Apply the CHG? to the entire body ONLY FROM THE NECK DOWN. Do not use CHG? near your eyes or ears to avoid permanent injury to those areas. Wash thoroughly, paying special attention to the area where surgery will be performed. Turn the water off to prevent rinsing the soap off too soon. Wash your body gently for five (5) minutes. Do not scrub your skin too hard. Do not wash with your regular soap after CHG? is used. Turn the water back on and rinse your body thoroughly. Pat yourself dry with a clean, soft towel. Do not use lotion, cream, or powder. Make sure clean linens are on your bed the night prior to surgery. Wear clean clothes. Repeat this process the morning of surgery using ONLY CHG soap. * Not to be used by people allergic to Chlorhexidine INCENTIVE SPIROMETER The following provides an overview of how you will use the spirometer after your surgery. Our goal is for you to become familiar with usage prior to your surgery date, as this improves the ability touse properly. Please attempt to use 2-3 times daily in the week leading up to your surgery date. DO NOT bring this spirometer with you the day of surgery, as you will be provided a new one after your surgery. Using your incentive spirometer after surgery will help your lungs clear and will help keep your lungs active throughout the recovery process, as if you were performing your daily activities. How to use the incentive spirometer: 1. Sit on the edge of your bed if possible, or sit up as far as you can in bed. 2. Hold the incentive spirometer in an upright position. 3. Place the mouthpiece in your mouth and seal your lips tightly around it. 4. Breathe in slowly and as deeply as possible. Notice the blue piston rising toward the top of thecolumn. The blue indicator on the right should float between the two blue arrows. 5. Hold your breath as long as possible. Then exhale slowly and allow the piston to fall to fall tothe bottom of the column. 6. Rest for a few seconds and repeat steps one to 5 at least 10 times every hour. 7. Position the blue indicator on the left side of the spirometer to show your best effort. Use theindicator as a goal to work toward during each slow deep breath. 8. After each set of 10 deep breaths. Cough to be sure your lungs are clear. If you have an incision, support your incision when coughing by placing a pillow firmly against it. 9. Once you are able to get out of bed safely, take frequent walks and practice the cough. Medication Instructions for Surgery Current Outpatient Medications Medication Sig Note Dispense Refill acetaminophen (Tylenol) 500 MG tablet Take 1 (one) tablet by mouth every 4 hours as needed for Fever or Pain Maximum allowable Acetaminophen amount = 4 Grams (4000 mg) / 24 hours. celecoxib (CeleBREX) 200 MG capsule Take 1 (one) capsule by mouth 2 times daily 08/23/2023: Do not take the morning of surgery. 60 capsule 5 Other Keto Vitamin 08/23/2023: Stop 10 days prior to surgery. If you are taking any NSAIDs (Advil, Ibuprofen, Naproxen, Aleve, Motrin, Meloxicam, etc.), please stop 10 days prior to surgery as these are considered blood thinning medications. documented in this encounter Medications at Time of Discharge Medication Sig Dispensed Refills Start Date End Date acetaminophen (Tylenol) 500 MG capsule Take 2 (two) capsules by mouth 3 times daily Take for ten days then as needed. 10/18/2023 Other Keto Vitamin acetaminophen (Tylenol) 500 MG tablet Take 1 (one) tablet by mouth every 4 hours as needed for Fever or Pain Maximum allowable Acetaminophen amount = 4 Grams (4000 mg) / 24 hours. 10/19/2023 aspirin (Aspirin) 81 MG chew tablet Take 1 (one) tablet by mouth 2 times daily for 42 days Take for blood clot prevention. 84 tablet 10/18/2023 10/18/2023 celecoxib (CeleBREX) 200 MG capsuleIndications:Colleen alka osteoarthritis of both knees Take 1 (one) capsule by mouth 2 times daily 60 capsule 5 05/13/2023 10/28/2023 omeprazole (PriLOSEC) 20 MG capsule Take 1 (one) capsule by mouth daily before breakfast for 42 days 42 capsule 10/18/2023 10/18/2023 documented as of this encounter Progress Notes * Whitney Chapman RN - 08/23/2023 11:12 AM CDT Labs from SEC visit faxed to PCP via [facility] per instructions. * Brooke Washington APRN-PORTILLO - 08/23/2023 9:45 AM CDT PRESURGICAL OPTIMIZATION EVALUATION Patient Name: Maxine Phillips : 1965 SUBJECTIVE: Maxine Phillips is a 58 year old y.o. White/ female presenting to the [facility]. She is scheduled for the followin10/18/23 RIGHT TOTAL KNEE ARTHROPLASTY Aaron Rodriguez MD Denies any surgical history. Denies any family history of anesthetic complications. Denies pertinent medical history BP Readings from Last 3 Encounters: 08/23/23 137/70 Patient denies h/o asthma, COPD, PE, YUMIKO, HTN, HLD, CAD, CHF, heart murmur, heart arrhythmia, cardiac devices, stroke, seizure, neuromuscular diseases, bleeding/clotting disorders, diabetes, thyroid disease, kidney disease, liver disease. PCP is Dr. Jhonny Brennna who manages patient's full care Review of Systems: As noted in HPI and also as outlined below Denies chest pain, palpitations, irregular heart beat, syncope, RIVERA, orthopnea, PND, or swelling ofthe feet or ankles. No cough, wheezing or shortness of breath Denies rash, open or unhealed sores, and lesions No URI's in past 4-6 weeks. Denies GERD symptoms Functional Status Assessment: METS (Metabolic Equivalents of Task) Score: > or equal to 4 METs Limited by bilateral knee pain, R>L. Patient endorses completing daily household ADLs without CPor SOB. Patient was able to walk into today's appointment from car in parking lot and can climb onefull flight of stairs without CP or SOB. PMH: No past medical history on file. PSH: No past surgical history on file. Allergies: No Known Allergies Current Medications: Outpatient Medications Marked as Taking for the 08/23/23 encounter (Hospital Encounter) with [facility] Medication Sig acetaminophen (Tylenol) 500 MG tablet Take 1 (one) tablet by mouth every 4 hours as needed for Fever or Pain Maximum allowable Acetaminophen amount = 4 Grams (4000 mg) / 24 hours. celecoxib (CeleBREX) 200 MG capsule Take 1 (one) capsule by mouth 2 times daily Other Keto Vitamin OBJECTIVE: BP 137/70 Pulse 68 Temp 97.1 ??F (36.2 ??C) (Temporal) Ht 1.549 m (5' 1 ) Wt 67.2 kg (148 lb 3.2 oz) Physical Exam: Airway/Mallamapati Score: Grade 2: Soft palate, base of uvula, tonsillar pillars, and portion of posterior pharyngeal wall visible Mouth Opening Distance: 3 fingerwidths Neck ROM: normal range of motion and supple TM Distance: > 3 FB Teeth: caps/crowns General appearance - alert, well appearing, and in no distress Mental status - alert, oriented to person, place, and time Chest - clear to auscultation, no wheezes, rales or rhonchi, symmetric air entry Heart - normal rate, regular rhythm, normal S1, S2, no murmurs, rubs, clicks or gallops No BLE edema Pertinent Diagnostic Tests: Recent Labs Component Name 08/23/23 0935 WBC 8.0 RBC 4.29 HGB 13.6 HCT 41.0 MCV 95.6 MCHC 33.2 PLTCOUNT 249 NEUTPCT 66.6 LYMPHPCT 22.6 LYMPHABS 1.82 BASOABS 0.04 Recent Labs Component Name 08/23/23 0935 SODIUM 142 POTASSIUM 4.4 CHLORIDE 106 CO2 25 BUN 16 CREATININE 0.76 GLUCOSE 106* CALCIUM 10.2 ALT 23 ALKPHOS 98 AST 23 TBIL 0.8 TPROT 7.2 EGFR >90 A/P Encounter for other pre-procedural examination All labs completed today were discussed with patient during clinic visit. Thoroughly discussed withpatient that all labs done today were obtained for preoperative screening purposes, and further management/recommendations and additional work-up (if necessary) will be deferred to the patient's primary care provider. All labwork done today will be sent to patient's primary care provider for continuity/coordination of care. Preoperative Domain Results Recommendations BMI BMI (Calculated): 28.02 Initiate anti-inflammatory ( Mediterranean ) style diet in the perioperative period, unless otherwise contraindicated. Nutrition Recent Labs Component Name 08/23/23 0935 ALBUMIN 4.0 Anti-inflammatory ( Mediterranean ) style diet discussed/encouraged perioperatively. Educational resource provided. Diabetes No results for input(s): HGBA1C , A1C , [id number] , EAG in the last 78552 hours. N/A Non-diabetic Cardiac Records reviewed-Sinus bradycardia 57 bpm EKG obtained today per anesthesia team. Cardiology to complete final confirmatory read of EKG. Willdefer to both PCP and anesthesia team to determine if any additional cardiac testing/work-up is necessary prior to upcoming scheduled surgery. Pulmonary /YUMIKO STOPBANG Score - Sleep Apnea Total: Total YUMIKO Risk Score: 1-low risk STOPBANG screening tool results discussed with patient. Advised/recommended that patient f/u with PCP for Intermediate Risk & High Risk YUMIKO screening tool results, as may consider sleep study testing in future; will defer further recommendations and/or referral to PCP. Incentive Spirometer (IS) provided and patient was instructed regarding use. Encouraged daily use of IS prior to surgery. Smoking Social History Tobacco Use Smoking Status Never Smokeless Tobacco Never N/A Non-smoker Infection Prevention Denies h/o MRSA/MSSA. CHG bathing instructions given to patient by nursing staff per protocol. Encouraged good hygiene and handwashing preoperatively. Chronic narcotic use Reviewed medication use with patient, specifically regarding if currently taking narcotics or not. If patient reported current narcotic use: Discussed with patient that if able to minimize narcotic use in the preoperative period, it will certainly aid/help with pain control/management postoperatively. VTE prophylaxis N/A Education provided re: Post-op VTE prevention. Follow specific recommendations from surgeon's office re: VTE prophylaxis. Preoperative testing CBC CMP results reviewed See notes above NPO instructions given to patient by RN per protocol. Preoperative/Day of Surgery medication instructions given to patient by RN per surgeon/anesthesia standing orders. AVS printed and given to patient. See AVS for additional instructions/information that was given topatient during this clinic visit. LEODAN Gil documented in this encounter Plan of Treatment Not on file documented as of this encounter Procedures Procedure Name Priority Date/Time Associated Diagnosis Comments EKG 12-LEAD STAT 08/23/2023 9:38 AM CDT Preop testing CBC W AUTO DIFFERENTIAL STAT 08/23/2023 9:35 AM CDT Preop testing COMPREHENSIVE METABOLIC PANEL STAT 08/23/2023 9:35 AM CDT Preop testing documented in this encounter Results * EKG 12-LEAD (08/23/2023 9:38 AM CDT) Ventricular Rate 57 BPM [facility] Atrial Rate 57 BPM [facility] P-R Interval 132 ms [facility] QRS Duration ms 94 ms [facility] Q-T Interval ms 416 ms [facility] QTC Calculation (Bezet) 404 ms [facility] Calculated P Roper 18 degrees [facility] Calculated R Roper 32 degrees [facility] Calculated T Roper 45 degrees [facility] Interpretation EKG Sinus bradycardia Nonspecific ST and T wave abnormality Abnormal ECG No previous ECGs available Confirmed by BHUPINDER DIXON MD ([id number]) on 08/23/2023 1:30:11 PM [facility] M[facility] 08/23/2023 9:38 AM CDT 08/23/2023 1:30 PM CDT Clarita Kaye DO ECG ORDERABLES [facility] * (ABNORMAL) COMPREHENSIVE METABOLIC PANEL (08/23/2023 9:35 AM CDT) Glucose 106(H) 70 - 105 mg/dL 08/23/2023 10:01 AM [facility] Sodium 142 136 - 145 mmol/L 08/23/2023 10:01 AM [facility] Potassium 4.4 3.5 - 5.1 mmol/L 08/23/2023 10:01 AM [facility] Chloride 106 98 - 107 mmol/L 08/23/2023 10:01 AM [facility] CO2 25 22 - 29 mmol/L 08/23/2023 10:01 AM [facility] Calcium 10.2 8.4 - 10.4 mg/dL 08/23/2023 10:01 AM [facility] Anion Gap 11 6 - 16 mmol/L 08/23/2023 10:01 AM [facility] BUN 16 7 - 26 mg/dL 08/23/2023 10:01 AM [facility] Creatinine 0.76 0.57 - 1.11 mg/dL 08/23/2023 10:01 AM [facility] Alkaline Phosphatase 98 40 - 150 U/L 08/23/2023 10:01 AM [facility] ALT 23 0 - 55 U/L 08/23/2023 10:01 AM [facility] AST 23 5 - 34 U/L 08/23/2023 10:01 AM [facility] Protein Total 7.2 6.4 - 8.3 gm/dL 08/23/2023 10:01 AM [facility] Albumin 4.0 3.4 - 5.0 gm/dL 08/23/2023 10:01 AM CDT [facility] Bilirubin Total 0.8 0.2 - 1.2 mg/dL 08/23/2023 10:01 AM CDT [facility] eGFR by CKD-EPI >90 >=90 mL/min/1.7 3 m2 08/23/2023 10:01 AM CDT [facility] Blood BLOOD SPECIMEN / Unknown Venipuncture / Unknown 08/23/2023 9:35 AM CDT 08/23/2023 9:43 AM CDT Brooke Washington [facility] - CHEMISTRY O RDERABLES [facility] [address] [place] [address] * CBC W AUTO DIFFERENTIAL (08/23/2023 9:35 AM CDT) WBC 8.0 4.0 - 10.7 x10E9/L 08/23/2023 9:47 AM CDT [facility] RBC Count 4.29 3.90 - 5.20 x10E12/L 08/23/2023 9:47 AM CDT [facility] Hemoglobin 13.6 11.9 - 15.8 g/dL 08/23/2023 9:47 AM CDT [facility] Hematocrit 41.0 34.8 - 46.1 % 08/23/2023 9:47 AM CDT [facility] MCV 95.6 80.0 - 98.0 fL 08/23/2023 9:47 AM CDT [facility] MCH 31.7 26.7 - 33.6 pg 08/23/2023 9:47 AM CDT [facility] MCHC 33.2 31.7 - 36.3 g/dL 08/23/2023 9:47 AM CDT [facility] RDW-CV 12.7 11.3 - 14.8 % 08/23/2023 9:47 AM CDT [facility] Platelet Count 249 150 - 420 x10E9/L 08/23/2023 9:47 AM CDT [facility] MPV 9.9 7.8 - 11.4 fL 08/23/2023 9:47 AM CDT [facility] Neutrophil % 66.6 41.0 - 74.0 % 08/23/2023 9:47 AM CDT [facility] Lymphocyte % 22.6 17.0 - 47.0 % 08/23/2023 9:47 AM CDT [facility] Monocyte % 8.2 3.0 - 11.0 % 08/23/2023 9:47 AM CDT [facility] Eosinophil % 1.9 0.0 - 7.0 % 08/23/2023 9:47 AM CDT [facility] Basophil % 0.5 0.0 - 1.6 % 08/23/2023 9:47 AM CDT [facility] Immature Granulocytes % 0.2 0.0 - 1.0 % 08/23/2023 9:47 AM CDT [facility] Neutrophil Absolute 5.35 1.60 - 7.50 x10E9/L 08/23/2023 9:47 AM CDT [facility] Lymphocyte Absolute 1.82 1.00 - 4.40 x10E9/L 08/23/2023 9:47 AM CDT [facility] Monocyte Absolute 0.66 0.15 - 1.00 x10E9/L 08/23/2023 9:47 AM CDT [facility] Eosinophil Absolute 0.15 0.00 - 0.60 x10E9/L 08/23/2023 9:47 AM CDT [facility] Basophil Absolute 0.04 0.00 - 0.13 x10E9/L 08/23/2023 9:47 AM CDT [facility] Blood BLOOD SPECIMEN / Unknown Venipuncture / Unknown 08/23/2023 9:35 AM CDT 08/23/2023 9:43 AM CDT Brooke Washington [facility] - HEMATOLOGY ORDERABLES Performing Organization Address City/State/[facility] Co de Phone Number [facility] [address] [place] [address] documented in this encounter Visit Diagnoses Diagnosis Preop testing- Primary Preoperative examination, unspecified documented in this encounter Care Teams Blue Crabber Relationship Specialty Start Date End Date Jhonny Brennan DO [address] [place] [id number] PCP - General Family Medicine 04/13/23 documented as of this encounter
--- OUTSIDE RECORDS SUMMARY | 2024-02-20 23:25 | XMS_ITS | Encounter Summary ---
Author Organization [facility] Address [address] [address] Care Team Providers Care Pie Baker Name Role Phone Jhonny Brennan DO Primary Care Provider [phone] Encounter Details Date Type Department Care Team (Latest Contact Info) Description 08/18/2023 Travel Social History Tobacco Use Types Packs/Day [...] on filedocumented in this encounter Care Teams Pie Baker Relationship Specialty Start Date End Date Jhonny Brennan DO [address] [place] [id number] PCP - General Family Medicine 04/13/23 documented as of this encounter
--- OUTSIDE RECORDS SUMMARY | 2024-02-20 23:25 | XMS_ITS | Encounter Summary ---
Author Organization [facility] Address [address] [place] [address] Care Team Providers Care Injection Mold Technician Name Role Phone LibertadJhonny lawson Primary Care Provider [phone] Encounter Details Date Type Department Care Team (Latest Contact Info) Description 11/29/2023 2:15 PM CDT Ancillary Procedure [facility] Orthopedics - Radiology [id number] [place] [id number] [place] [id number] [address] [facility] [address] [place] [address] Aftercare following right knee joint replacement surgery Social History Tobacco Use Types Packs/Day Years [...] Procedure Name Priority Date/Time Associated Diagnosis Comments XR KNEE RIGHT 3VW Routine 11/29/2023 2:1 7 PM CDT Aftercare following right knee joint replacement surgery documented in this encounter Results * XR Knee Right 3Vw (11/29/2023 2:17 PM CDT) Narrative [facility] [place] [address] - 11/29/2023 2:17 PM CDT Please see progress note in Epic for results. Aaron Rodriguez MD DIAGNOSTIC IMAGING O RDERABLES [facility] [address] documented in this encounter Visit Diagnoses Diagnosis Aftercare following right knee joint replacement surgery documented in this encounter Care Teams Injection Mold Technician Relationship Specialty Start Date End Date Jhonny Brennan DO [address] [place] [id number] PCP - General Family Medicine 04/13/23 documented as of this encounter
--- OUTSIDE RECORDS SUMMARY | 2024-02-20 23:25 | XMS_ITS | Patient Health Summary ---
Author Organization [facility] Address [address] [place] [address] Care Team Providers Care Drafter Heating And Ventilating Name Role Phone Jhonny Brennan DO Primary Care Provider Note from [facility],non-owned Affiliates and Associated Physician Practices is amultiple site organization consisting of ambulatory clinics and hospital sitesin [place], [place], [place] and [place]. This disclosure is being madepursuant to the Care Everywhere program and may not contain all information available regarding this patient. Last updated 17.[facility] Allergies No known active allergies Medications * Be aware that medications may not be up to date on this document. Alwaysverify current medications with the patient. * Other Keto Vitamin * acetaminophen (Tylenol) 500 MG capsule(Started 10/18/2023) Take 2 (two) capsules by mouth 3 times daily Take for ten days then as needed. * oxyCODONE, immediate release, (Roxicodone) 10 MG tablet(Started 10/18/2023) Take 0.5 (one-half) tablet to 1 (one) tablet by mouth every 4 hours as needed for Pain (PAIN) * celecoxib (CeleBREX) 200 MG capsule(Started 10/28/2023) TAKE ONE CAPSULE BY MOUTH TWICE A DAY 5 refills by 10/27/2024 * omeprazole (PriLOSEC) 20 MG capsule(Started 10/18/2023) TAKE 1 (ONE) CAPSULE BY MOUTH DAILY BEFORE BREAKFAST FOR 42 DAYS * aspirin (Aspirin) 81 MG chew tablet(Started 10/18/2023) TAKE 1 (ONE) TABLET BY MOUTH 2 TIMES DAILY FOR 42 DAYS TAKE FOR BLOOD CLOT PREVENTION. Active Problems Problem Noted Date Diagnosed Date Primary osteoarthritis of right knee 04/19/2023 Social History Tobacco Use Types Packs/Day Years [...] more drinks on one occasion? Never 10/18/2023 PHQ-2 Answer Date Recorded Patient Health Questionnaire-2 Score 0 12/28/2023 Hunger Vital Sign Answer Date Recorded Within [...] on file Sexual Orientation Not on file Last Filed Vital Signs Vital Sign Reading Time Taken Comments Blood Pressure 117/68 10/19/2023 10:51 AM CDT Pulse 68 10/19/2023 8:35 AM CDT Temperature 36.7 ??C (98.1 ??F) 10/19/2023 3:57 AM CD T Respiratory Rate 18 10/19/2023 8:35 AM CDT Oxygen Saturation 100% 10/19/2023 8:35 AM CDT Inhaled Oxygen Concentration - - Weight 71.9 kg (158 lb 9.6 oz) 10/18/2023 2:28 P M CDT Height 154.9 cm (5' 1 ) 10/18/2023 2:28 PM CDT Body Mass Index 29.97 10/18/2023 2:28 PM CDT Medical Devices Implanted Type Area Coremaker Device Identifier Shelf Expiration Date Model / Serial / Lot Cmnt Bone Plc R 40gm Grn Implanted:Qty: 1 on 10/18/2023 by Aaron Rodriguez MD at [facility] Right: Knee Dot [employer]omet 02/28/2026 [id number] / / [id number] Tray Tib 71mm Kn Cocr I Beam Implanted:Qty: 1 on 10/18/2023 by Aaron Rodriguez MD at [facility] Right: Knee Dot [employer]omet 04/27/2032 [id number] / / [id number] Cmpnt Fem Kn Rt Cr Cmnt Prm Vngrd Intlk Implanted:Qty: 1 on 10/18/2023 by Aaron Rodriguez MD at [facility] Right: Knee Dot [employer] 06/17/2033 [id number] / / [id number] Cmpnt Ptlr Std 28mm 3 Pg Kn Ser A Implanted:Qty: 1 on 10/18/2023 by Aaron Rodriguez MD at [facility] Right: Knee Dot [employer] 08/25/2028 [id number] / / [id number] Brng [id number] Vngrd Vivacit-E Kn Ant Stab Implanted:Qty: 1 on 10/18/2023 by Aaron Rodriguez MD at [facility] Right: Knee Dot [employer]omet 07/10/2028 [id number] / / [id number] Procedures * XR KNEE RIGHT 3VW(Performed 11/29/2023) Performed for Aftercare following right knee joint replacement surgery * NEURAXIAL BLOCK(Performed 10/18/2023) * SD TOTAL KNEE REPLACEMENT(Performed 10/18/2023) * EKG 12-LEAD(Performed 08/23/2023) Performed for Preop testing * COMPREHENSIVE METABOLIC PANEL(Performed 08/23/2023) Performed for Preop testing * CBC W AUTO DIFFERENTIAL(Performed 08/23/2023) Performed for Preop testing * XR KNEE BILAT 3VW(Performed 04/13/2023) Performed for Pain in both knees, unspecified chronicity Results * XR Knee Right 3Vw (11/29/2023 2:17 PM CDT) Narrative [facility] [address] - 11/29/2023 2:17 PM CDT Please see progress note in Epic for results. Aaron Rodriguez MD DIAGNOSTIC IMAGING O RDERABLES [facility] [address] * Neuraxial Block (10/18/2023 11:35 AM CDT) Narrative Art Acevedo, FLOOR COVERING PRINTER ASSISTANT-CRIMINAL RESEARCHER - 10/18/2023 11:35 AM CDT Art Acevedo, FLOOR COVERING PRINTER ASSISTANT-CRIMINAL RESEARCHER ? 10/18/2023 11:35 AM Neuraxial Block Note ?? Pre-Procedure: ?? Procedure Name: ??Neuraxial Block Patient Location: ??OR Indications: ??surgical anesthesia Pre-Anesthetic Checklist: ??Patient identified, IV Checked, Risks and benefits discussed, Surgical consent verified, Monitors and equipment, Site examined, Pre-op evaluation done, Informed consent obtained, Questions answered/anesthesia questions answered and Allergies reviewed Anticoagulation/ Anti-thrombosis status confirmed? ??Yes Supplemental O2: ??room air Monitors: ??BP and continuous pluse ox Patient Condition: ??sedated, meaningful contact maintained throughout procedure Patient Sedated? ??Nursing sedation administration ? Sedation Type: ??mild ? Sedation Agents (manual): ??versed ?? fentanyl mL Procedure: ?? Block Type: ??Spinal Prep: ??Betadine Sterile Field: ??mask, cap/hat, sterile established and sterile gloves Approach: ??midline Skin was localized? ??Nursing documentation on [facility] Skin localized with: ??Lidocaine 1% and 1 mL Spinal Block: ?? Needle Type: ??spinal needle Needle Gauge: ??22 Needle Length: ??90 mm Placement Site: ??L3-4 Number of Attempts: ??1 CSF: ??aspiration before injection, free flow Local anesthetics used? ??Nursing documentation on the [facility] Spinal Local Anesthetic: ? Bupivacaine: ??0.75% in dextrose 2 ??mL Degree of difficulty: ??none Procedure Tolerance: ??tolerated well ?? performed while the patient was sedated Sensory Level: ??lower level Motor Blockade: ??Yes Position post procedure: ??supine Vital Signs: ??Vital signs monitored and stable throughout. ??See anesthesia record for details. Start Time: ??10/18/2023 11:15 AM End Time: ??10/18/2023 11:22 AM Total Time: ??7 Staff: ?? Anesthesia Provider: ??Art Acevedo, FLOOR COVERING PRINTER ASSISTANT-CRIMINAL RESEARCHER ?? - ?? performed the procedure Rodriguez Mckeon DO GENERAL ANESTHESIA O RDERABLES * EKG 12-LEAD (08/23/2023 9:38 AM CDT) Ventricular Rate 57 BPM [facility] Atrial Rate 57 BPM [facility] P-R Interval 132 ms [facility] QRS Duration ms 94 ms [facility] Q-T Interval ms 416 ms [facility] QTC Calculation (Bezet) 404 ms [facility] Calculated P [place] 18 degrees [facility] Calculated R [place] 32 degrees [facility] Calculated T [place] 45 degrees [facility] Interpretation EKG Sinus bradycardia Nonspecific ST and T wave abnormality Abnormal ECG No previous ECGs available Confirmed by BHUPINDER DIXON MD ([id number]) on 08/23/2023 1:30:11 PM [facility] 08/23/2023 9:38 AM CDT 08/23/2023 1:30 PM CDT Clarita Kaye DO ECG ORDERABLES [facility] * CBC W AUTO DIFFERENTIAL (08/23/2023 9:35 AM CDT) WBC 8.0 4.0 - 10.7 x10E9/L 08/23/2023 9:47 AM CDT [facility] RBC Count 4.29 3.90 - 5.20 x10E12/L 08/23/2023 9:47 AM CDT [facility] Hemoglobin 13.6 11.9 - 15.8 g/dL 08/23/2023 9:47 AM CDT [facility] Hematocrit 41.0 34.8 - 46.1 % 08/23/2023 9:47 AM CDT [facility] MCV 95.6 80.0 - 98.0 fL 08/23/2023 9:47 AM CDT [facility] MCH 31.7 26.7 - 33.6 pg 08/23/2023 9:47 AM CDT [facility] MCHC 33.2 31.7 - 36.3 g/dL 08/23/2023 9:47 AM CDT [facility] RDW-CV 12.7 11.3 - 14.8 % 08/23/2023 9:47 AM CDT [facility] Platelet Count 249 150 - 420 x10E9/L 08/23/2023 9:47 AM CDT [facility] MPV 9.9 7.8 - 11.4 fL 08/23/2023 9:47 AM CDT [facility] Neutrophil % 66.6 41.0 - 74.0 % 08/23/2023 9:47 AM CDT [facility] Lymphocyte % 22.6 17.0 - 47.0 % 08/23/2023 9:47 AM CDT [facility] Monocyte % 8.2 3.0 - 11.0 % 08/23/2023 9:47 AM CDT [facility] Eosinophil % 1.9 0.0 - 7.0 % 08/23/2023 9:47 AM CDT [facility] Basophil % 0.5 0.0 - 1.6 % 08/23/2023 9:47 AM CDT [facility] Immature Granulocytes % 0.2 0.0 - 1.0 % 08/23/2023 9:47 AM CDT [facility] Neutrophil Absolute 5.35 1.60 - 7.50 x10E9/L 08/23/2023 9:47 AM CDT [facility] Lymphocyte Absolute 1.82 1.00 - 4.40 x10E9/L 08/23/2023 9:47 AM CDT [facility] Monocyte Absolute 0.66 0.15 - 1.00 x10E9/L 08/23/2023 9:47 AM CDT [facility] Eosinophil Absolute 0.15 0.00 - 0.60 x10E9/L 08/23/2023 9:47 AM CDT [facility] Basophil Absolute 0.04 0.00 - 0.13 x10E9/L 08/23/2023 9:47 AM CDT [facility] Blood BLOOD SPECIMEN / Unknown Venipuncture / Unknown 08/23/2023 9:35 AM CDT 08/23/2023 9:43 AM CDT Brooke Washington FLOOR COVERING PRINTER ASSISTANT-OPTICAL WORKER LAB - HEMATOLOGY ORDERABLES [facility] [address] [place] [id number] * (ABNORMAL) COMPREHENSIVE METABOLIC PANEL (08/23/2023 9:35 AM CDT) Glucose 106(H) 70 - 105 mg/dL 08/23/2023 10:01 AM [facility] Sodium 142 136 - 145 mmol/L 08/23/2023 10:01 AM [facility] Potassium 4.4 3.5 - 5.1 mmol/L 08/23/2023 10:01 AM [facility] Chloride 106 98 - 107 mmol/L 08/23/2023 10:01 AM [facility] CO2 25 22 - 29 mmol/L 08/23/2023 10:01 AM [facility] Calcium 10.2 8.4 - 10.4 mg/dL 08/23/2023 10:01 AM [facility] Anion Gap 11 6 - 16 mmol/L 08/23/2023 10:01 AM [facility] BUN 16 7 - 26 mg/dL 08/23/2023 10:01 AM [facility] Creatinine 0.76 0.57 - 1.11 mg/dL 08/23/2023 10:01 AM [facility] Alkaline Phosphatase 98 40 - 150 U/L 08/23/2023 10:01 AM [facility] ALT 23 0 - 55 U/L 08/23/2023 10:01 AM [facility] AST 23 5 - 34 U/L 08/23/2023 10:01 AM [facility] Protein Total 7.2 6.4 - 8.3 gm/dL 08/23/2023 10:01 AM [facility] Albumin 4.0 3.4 - 5.0 gm/dL 08/23/2023 10:01 AM [facility] Bilirubin Total 0.8 0.2 - 1.2 mg/dL 08/23/2023 10:01 AM [facility] eGFR by CKD-EPI >90 >=90 mL/min/1.7 3 m2 08/23/2023 10:01 AM [facility] Blood BLOOD SPECIMEN / Unknown Venipuncture / Unknown 08/23/2023 9:35 AM CDT 08/23/2023 9:43 AM CDT Brooke Washington APRN-PORTILLO LAB - CHEMISTRY O RDERABLES Performing Organization Address City/[facility]/ZIP Co de Phone Number [facility] [address] [place] [address] * XR KNEE BILAT 3VW (04/13/2023 2:48 PM ICER MACHINE) Narrative [facility] [address] - 04/13/2023 2:48 PM ICER MACHINE Please see progress note in Epic for results. Aaron Rodriguez MD DIAGNOSTIC IMAGING O RDERABLES Performing Organization Address City/[facility]/ZIP Co de Phone Number [facility] [address] Care Teams Drafter Heating And Ventilating Relationship Specialty Start Date End Date Jhonny Brennan DO [address] [place] [id number] PCP - General Family Medicine 04/13/23
--- OUTSIDE RECORDS SUMMARY | 2024-02-20 23:25 | XMS_ITS | Referral Summary ---
Author Organization [facility] Address [address] [place] [address] Care Team Providers Care Maintenance Shop Laborer Name Role Phone Libertadlulu Jhonny Primary Care Provider [phone] Source Comments [facility],non-[facility] and Associated Physician Practices is amultiple site organization consisting of ambulatory clinics and hospital sitesin [place], [place], [place] and [place]. This disclosure is being madepursuant to the Care Everywhere program and may not contain all information available regarding this patient. Last updated 17.[facility] Encounters Date Type Department Care Team Description 01/14/[address], [address] [phone] Aaron Rodriguez MD Patient Requested Call (Patient called in to ask if she is cleared to have scuba diving lessons. She needs an answer within 48 hours) 12/28/2023 12:30 PM CDT Office Visit [address], [address] [phone] Aaron Rodriguez MD Aftercare following right knee joint replacement surgery (Primary Dx) 12/15/[address], [facility] [address] [place] [address] Aaron Rodriguez MD Forms 12/09/2023 Telephone [facility] [address], [facility] [address] [place] [address] Aaron Rodriguez MD Order 12/09/2023 Telephone [facility] [address] [facility], [address] [place] [address] Aaron Rodriguez MD Physical Therapy 12/06/2023 Telephone [facility] Orthopedics [address] [place] [address], [address] [phone] Aaron Rodriguez MD Patient Requested Call (pt called in to report that she does not feel like her surgical knee is progressing she still has severe stiffness. She will like a call back with suggestions for symptom relief.) 11/30/2023 Telephone [facility] Orthopedics [address] [place] [address], [address] [phone] Aaron Rodriguez MD Order 11/29/2023 2:15 PM CDT Ancillary Procedure [facility] Orthopedics - Radiology [address] [place] [phone] Aaron Rodriguez MD Aftercare following right knee joint replacement surgery 11/29/2023 3:20 PM CDT Office Visit [facility] [address] [place] [address], [address] [phone] Aaron Rodriguez MD Aftercare following right knee joint replacement surgery (Primary Dx) from Last 3 Months Allergies No known active allergies Medications * Be aware that medications may not be up to date on this document. Alwaysverify current medications with the patient. Medication Sig Dispensed Refills Start Date End Date Status Other Keto Vitamin Active acetaminophen (Tylenol) 500 MG capsule Take 2 (two) capsules by mouth 3 times daily Take for ten days then as needed. 10/18/2023 Active oxyCODONE, immediate release, (Roxicodone) 10 MG tabletIndications:Pos toperative pain Take 0.5 (one-half) tablet to 1 (one) tablet by mouth every 4 hours as needed for Pain (PAIN) 30 tablet 10/18/2023 Active celecoxib (CeleBREX) 200 MG capsuleIndications:Pr imary osteoarthritis of both knees TAKE ONE CAPSULE BY MOUTH TWICE A DAY 60 capsule 5 10/28/2023 Active omeprazole (PriLOSEC) 20 MG capsule TAKE 1 (ONE) CAPSULE BY MOUTH DAILY BEFORE BREAKFAST FOR 42 DAYS 42 capsule 10/18/2023 10/17/2024 Active aspirin (Aspirin) 81 MG chew tablet TAKE 1 (ONE) TABLET BY MOUTH 2 TIMES DAILY FOR 42 DAYS TAKE FOR BLOOD CLOT PREVENTION. 84 tablet 10/18/2023 10/17/2024 Active Active Problems Problem Noted Date Diagnosed Date [...] Mass Index 29.97 10/18/2023 2:28 PM CDT Functional Status Functional Status Response Date of [...] person have difficulty concentrating/remembering/making decisions? No 10/18/2023 Plan of Treatment Not on file Medical Devices Implanted Type Area Electric Relay Tester Device Identifier Shelf Expiration Date Model / Serial / Lot Cmnt Bone Plc R 40gm Grn Implanted:Qty: 1 on 10/18/2023 by Aaron Rodriguez MD at [facility] Right: Knee Dot [employer] 02/28/2026 [id number] / / [id number] Tray Tib 71mm Kn Cocr I Beam Implanted:Qty: 1 on 10/18/2023 by Aaron Rodriguez MD at [facility] Right: Knee [employer] 04/27/2032 [id number] / / [id number] Cmpnt Fem Kn Rt Cr Cmnt Prm Vngrd Intlk Implanted:Qty: 1 on 10/18/2023 by Aaron Rodriguez MD at [facility] Right: Knee [employer] 06/17/2033 [id number] / / [id number] Cmpnt Ptlr Std 28mm 3 Pg Kn Ser A Implanted:Qty: 1 on 10/18/2023 by Aaron Rodriguez MD at [facility] Right: Knee [employer] 08/25/2028 [id number] / / [id number] Brng [id number] Vngrd Vivacit-E Kn Ant Stab Implanted:Qty: 1 on 10/18/2023 by Aaron Rodriguez MD at [facility] Right: Knee [employer] 07/10/2028 [id number] / / [id number] Procedures Procedure Name Priority Date/Time Associated Diagnosis Comments XR KNEE RIGHT 3VW Routine 11/29/2023 2:1 7 PM CDT Aftercare following right knee joint replacement surgery COMPREHENSIVE METABOLIC PANEL STAT 08/23/2023 9:35 AM CDT Preop testing from Last 3 Months or Most Recently Relevant to Health Maintenance Results * XR Knee Right 3Vw (11/29/2023 2:17 PM CDT) Narrative [facility] [address] - 11/29/2023 2:17 PM CDT Please see progress note in Epic for results. Aaron Rodriguez MD DIAGNOSTIC IMAGING O RDERABLES [facility] [address] * (ABNORMAL) COMPREHENSIVE METABOLIC PANEL (08/23/2023 9:35 AM CDT) Glucose 106(H) 70 - 105 mg/dL 08/23/2023 10:01 AM CDT [facility] Sodium 142 136 - 145 mmol/L 08/23/2023 10:01 AM CDT [facility] Potassium 4.4 3.5 - 5.1 mmol/L 08/23/2023 10:01 AM CDT [facility] Chloride 106 98 - 107 mmol/L 08/23/2023 10:01 AM CDT [facility] CO2 25 22 - 29 mmol/L 08/23/2023 10:01 AM CDT [facility] Calcium 10.2 8.4 - 10.4 mg/dL 08/23/2023 10:01 AM T [facility] Anion Gap 11 6 - 16 mmol/L 08/23/2023 10:01 AM CDT [facility] BUN 16 7 - 26 mg/dL 08/23/2023 10:01 AM CDT [facility] Creatinine 0.76 0.57 - 1.11 mg/dL 08/23/2023 10:01 AM T [facility] Alkaline Phosphatase 98 40 - 150 U/L 08/23/2023 10:01 AM CDT [facility] ALT 23 0 - 55 U/L 08/23/2023 10:01 AM CDT [facility] AST 23 5 - 34 U/L 08/23/2023 10:01 AM T [facility] Protein Total 7.2 6.4 - 8.3 gm/dL 08/23/2023 10:01 AM CDT [facility] Albumin 4.0 3.4 - 5.0 gm/dL 08/23/2023 10:01 AM CDT [facility] Bilirubin Total 0.8 0.2 - 1.2 mg/dL 08/23/2023 10:01 AM CDT [facility] eGFR by CKD-EPI >90 >=90 mL/min/1.7 3 m2 08/23/2023 10:01 AM CDT [facility] Blood BLOOD SPECIMEN / Unknown Venipuncture / Unknown 08/23/2023 9:35 AM CDT 08/23/2023 9:43 AM CDT Brooke Washington CARGO SERVICE AGENT-LOANS CONSULTANT LAB - CHEMISTRY O RDERABLES [facility] [address] [place] [address] from Last 3 Months or Most Recently Relevant to Health Maintenance Advance Directives * Full Code (Latest Code Status on File) Date Activated Date Inactivated Comments 10/18/2023 12:40 PM 10/19/2023 2:00 PM Care Teams Maintenance Shop Laborer Relationship Specialty Start Date End Date Jhonny Brennan DO [address] [place] [id number] PCP - General Family Medicine 04/13/23
--- OUTSIDE RECORDS SUMMARY | 2024-02-20 23:25 | XMS_ITS | Encounter Summary ---
Author Organization [facility] Address [address] [facility] [place] [address] Care Team Providers Care Material Handler Floorperson Name Role Phone Jhonny Brennan Primary Care Provider [phone] Encounter Details Date Type Department Care Team (Latest Contact Info) Description 04/13/2023 2:30 PM PROSTHETIC DENTIST Ancillary Procedure [facility] Orthopedics - Radiology [address] [place] [phone] Aaron Rodriguez MD [address] [place] [address] [address] [place] [address] Pain in both knees, unspecified chronicity Social History Tobacco Use Types Packs/Day Years [...] Priority Date/Time Associated Diagnosis Comments XR KNEE BILAT 3VW Routine 04/13/2023 2:4 8 PM PROSTHETIC DENTIST Pain in both knees, unspecified chronicity documented in this encounter Results * XR KNEE BILAT 3VW (04/13/2023 2:48 PM PROSTHETIC DENTIST) Narrative [facility] [address] - 04/13/2023 2:48 PM PROSTHETIC DENTIST Please see progress note in Epic for results. Aaron Rodriguez MD DIAGNOSTIC IMAGING O RDERABLES [facility] [address] documented in this encounter Visit Diagnoses Diagnosis Pain in both knees, unspecified chronicity documented in this encounter Care Teams Material Handler Floorperson Relationship Specialty Start Date End Date Jhonny Brennan DO [address] [place], [place] [phone] PCP - General Family Medicine 04/13/23 documented as of this encounter
--- OUTSIDE RECORDS SUMMARY | 2024-02-20 23:25 | XMS_ITS | Encounter Summary ---
Author Organization [facility] Address [address] [facility] [place] [address] Care Team Providers Care Cut Out Worker Name Role Phone Jhonny Brennan DO Primary Care Provider [phone] Encounter Details Date Type Department Care Team (Latest Contact Info) Description 08/23/2023 Travel Social History Tobacco Use Types Packs/Day [...] on filedocumented in this encounter Care Teams Cut Out Worker Relationship Specialty Start Date End Date Jhonny Brennan DO [address] [place] [id number] PCP - General Family Medicine 04/13/23 documented as of this encounter
--- OUTSIDE RECORDS SUMMARY | 2024-02-20 23:25 | XMS_ITS | Encounter Summary ---
Author Organization [facility] [address] [place] [address] Care Team Providers Care Agriculturist Name Role Phone Libertadlulu Jhonny PINA Primary Care Provider Reason for Visit * Reason Onset Date Comments Physical Therapy 12/09/2023 Encounter Details Date Type Department Care Team (Late st Contact Info) Description 12/09/2023 Telephone [facility] [address] [facility], [address] [place] [address] [place] [address] [address] [facility] [address] [place] [address] Physical Therapy Social History Tobacco Use Types Packs/Day Years [...] Telephone Encounter - Dina Serrano MA - 12/09/2023 5:33 PM CDT Alka called back with a fax number for [facility] and the order was sent there. * Telephone Encounter - Sander Yost - 12/09/2023 9:57 AM CDT .Who is calling? Alka If other than self is caller listed on the HIPAA? Yes What is the reason for call? Alka called in regarding wanting orders sent to physical therapy closer to her home she has questions regarding that Expected Response from the Clinic? ( ex. Call back, etc..) Yes Did you notify caller it would take 24-48 hours for the office to get back to them? Yes documented in this encounter Plan of Treatment Not on file documented as of this encounter Visit Diagnoses Not on filedocumented in this encounter Care Teams Agriculturist Relationship Specialty Start Date End Date Jhonny Brennan DO [address] [place] [id number] PCP - General Family Medicine 04/13/23 documented as of this encounter
--- OUTSIDE RECORDS SUMMARY | 2024-02-20 23:25 | XMS_ITS | Encounter Summary ---
Author Organization [facility] Address [address] [address] Care Team Providers Care Cutting Machine Fixer Name Role Phone Libertadlulu Jhonny PINA Primary Care Provider [phone] Reason for Visit * Reason Comments Post-Op Post op - Right Knee R TKA 10-18-23 Xray taken today Encounter Details Date Type Department Care Team (Late st Contact Info) Description 11/29/2023 3:20 PM CDT Office Visit [facility] Orthopedics [address] [place] [phone] [place] [id number] [address] Aftercare following right knee joint replacement surgery (Primary Dx) Social History Tobacco Use Types Packs/Day Years [...] No 10/18/2023 documented as of this encounter Progress Notes * Sal Parker PA-C - 11/29/2023 2:46 PM CDT 6 weeks out 2-105 has a stitch superficial * Jarett Graves MA - 11/29/2023 2:12 PM CDT Chief Complaint Patient presents with Post-Op Post op - Right Knee R TKA 10-18-23 Xray taken today documented in this encounter H&P Notes * Sal Parker PA-C - 12/06/2023 7:41 AM CDT DATE OF SERVICE: 11/29/2023 SUBJECTIVE: Patient is here at the office for the right knee, 6 weeks out. The right knee is making significant improvement. She is doing quite well. CLINICAL EXAMINATION: Exam shows a well-healed incision. No evidence of any infection. She is spitting a superficial stitch proximally. This was removed today. It is not draining. There is no erythema around it. Her motion is 2 to 105 with good strength, good stability, good terminal extension. RADIOGRAPHS: X-rays show a well-implanted and cemented anterior stabilized knee, well fixated, in very good alignment. IMPRESSION: Progressing well. PLAN: We will see her back in the office in a couple of weeks, still working on the range of motion and stretching exercises. Dr. Rodriguez agrees this examination, evaluation, and treatment plan. BETH Lynne M.D. PJD/MedAntonio #: [id number] documented in this encounter Plan of Treatment Not on file documented as of this encounter Results * XR Knee Right 3Vw (11/29/2023 2:17 PM CDT) Narrative [facility] [address] - 11/29/2023 2:17 PM CDT Please see progress note in Epic for results. Aaron Rodriguez MD DIAGNOSTIC IMAGING O RDERABLES [facility] [address] documented in this encounter Visit Diagnoses Diagnosis Aftercare following right knee joint replacement surgery- Primary Aftercare following right knee joint replacement surgery documented in this encounter Care Teams Cutting Machine Fixer Relationship Specialty Start Date End Date Jhonny Brennan DO [address] [place] [address] PCP - General Family Medicine 04/13/23 documented as of this encounter
--- OUTSIDE RECORDS SUMMARY | 2024-02-20 23:25 | XMS_ITS | Encounter Summary ---
Author Organization [facility] Address [address] [facility] [place] [address] Care Team Providers Care Truck Body Builder Name Role Phone LibertadJhonny lawson Primary Care Provider [phone] Reason for Visit * Reason Onset Date Comments MEDICATION REFILL 10/18/2023 Encounter Details Date Type Department Care Team (Late st Contact Info) Description 10/18/2023 Refill [facility] Phys Standard [address] [place] [address] [place] [id number] [facility] [address] [place] [address] MEDICATION REFILL Social History Tobacco Use Types Packs/Day Years [...] as of this encounter Visit Diagnoses Diagnosis Postoperative pain- Primary Other acute postoperative pain documented in this encounter Care Teams Truck Body Builder Relationship Specialty Start Date End Date Jhonny Brennan DO [address] [place] [address] PCP - General Family Medicine 04/13/23 documented as of this encounter
--- OUTSIDE RECORDS SUMMARY | 2024-02-20 23:25 | XMS_ITS | Encounter Summary ---
Author Organization [facility] Address [address] [place] [address] Care Team Providers Care Orchestra Musician Name Role Phone Libertadlulu Jhonny PINA Primary Care Provider [phone] Reason for Visit * Reason Onset Date Comments Order 11/30/2023 Encounter Details Date Type Department Care Team (Late st Contact Info) Description 11/30/2023 Telephone [facility] Orthopedics [id number] [place] [phone] [place] [id number] [address] Order Social History Tobacco Use Types Packs/Day Years [...] Telephone Encounter - Dina Serrano MA - 12/01/2023 11:00 AM CDT Called Cedric back to find out which order number she is missing. We only have one for Alka Tatum and it was faxed back yesterday. She is looking for another one we don't have yet, so I asked her to re-fax it. * Telephone Encounter - Clarita Brown - 11/30/2023 2:27 PM CDT Who is calling? Cedric If other than self is caller listed on the HIPAA? no What is the reason for call? Cedric called regarding Alka and wanted to know if received a frequency order for continued physical therapy and if is has been faxed back. Expected Response from the Clinic? ( ex. Call back, etc..) Please call Cedric at [phone] direct line can leave a message. Did you notify caller it would take 24-48 hours for the office to get back to them? YES documented in this encounter Plan of Treatment Not on file documented as of this encounter Visit Diagnoses Not on filedocumented in this encounter Care Teams Orchestra Musician Relationship Specialty Start Date End Date Jhonny Brennan DO [address] [place] [address] PCP - General Family Medicine 04/13/23 documented as of this encounter
--- OUTSIDE RECORDS SUMMARY | 2024-02-20 23:25 | XMS_ITS | Encounter Summary ---
Author Organization [facility] Address [address] [facility] [place] [address] Care Team Providers Care Retention Representative Name Role Phone LibertadJhonny lawson Primary Care Provider [phone] Reason for Visit * Reason Onset Date Comments Patient Requested Call 11/03/2023 Patient c alled in to ask if you all may provide something that can excuse her from jury duty on wednesday. If so she will need it by today. She will like a call back even if this is something that cannot be done. Encounter Details Date Type Department Care Team (Late st Contact Info) Description 11/03/2023 Telephone [facility] Orthopedics [address] [place] [phone] [place] [id number] [address] Patient Requested Call (Patient called in to ask if you all may provide something that can excuse her from jury duty on wednesday. If so she will need it by today. She will like a call back even if this is something that cannot be done. /) Social History Tobacco Use Types Packs/Day Years [...] Telephone Encounter - Dina Serrano MA - 11/03/2023 12:26 PM CDT Called Alka to let her know we could provide a letter and then faxed it to ATTN: Mulugeta * Telephone Encounter - Avery Bae MA - 11/03/2023 9:45 AM CDT Patient called in to ask if you all may provide something that can excuse her from jury duty on wednesday the . If so she will need it by today. She will like a call back even if this is something that cannot be done. documented in this encounter Plan of Treatment Not on file documented as of this encounter Visit Diagnoses Not on filedocumented in this encounter Care Teams Retention Representative Relationship Specialty Start Date End Date Jhonny Brennan DO [address] [place] [address] PCP - General Family Medicine 04/13/23 documented as of this encounter
--- OUTSIDE RECORDS SUMMARY | 2024-02-20 23:25 | XMS_ITS | Encounter Summary ---
Author Organization [facility] Address [address] [facility] [place] [address] Care Team Providers Care Felt Finisher Name Role Phone LibertadJhonny lawson Primary Care Provider [phone] Reason for Visit * Reason Onset Date Comments Surgery Rescheduled 05/24/2023 Encounter Details Date Type Department Care Team (Late st Contact Info) Description 05/24/2023 Telephone [facility] Orthopedics [id number] [place] [phone] [place] [id number] [address] Surgery Rescheduled Social History Tobacco Use Types Packs/Day Years Used Date Smoking Tobacco: Never Smokeless Tobacco: Never Sex and Gender Information Value Date Recorded Sex Assigned at Not on file Gender Identity Not on file Sexual Orientation Not on file documented as of this encounter Miscellaneous Notes * Telephone Encounter - Eleanor Fam - 05/24/2023 1:18 PM CDT Called patient back and canceled surgery at this time. She wants to wait until mid-August. Added to August wait list * Telephone Encounter - Kayla Fernandez - 05/24/2023 10:36 AM CDT Who is calling? Patient What is the reason for call? Patient called wanting to r/s surgery. Expected Response from the Clinic? ( ex. Call back, etc..) Call back requested please. Did you notify caller it would take 24-48 hours for the office to get back to them? YES documented in this encounter Plan of Treatment Not on file documented as of this encounter Visit Diagnoses Not on filedocumented in this encounter Care Teams Felt Finisher Relationship Specialty Start Date End Date Jhonny Brennan DO [address] [place] [address] PCP - General Family Medicine 04/13/23 documented as of this encounter
--- OUTSIDE RECORDS SUMMARY | 2024-02-20 23:25 | XMS_ITS | Encounter Summary ---
Author Organization [facility] Address [address] [place] [address] Care Team Providers Care Central Office Installer Name Role Phone Libertadlulu Jhonny PINA Primary Care Provider [phone] Reason for Visit * Reason Onset Date Comments Order 12/09/2023 Encounter Details Date Type Department Care Team (Late st Contact Info) Description 12/09/2023 Telephone [facility] Orthopedics [address] [place] [phone] [place] [id number] [address] Order Social History Tobacco Use [...] Serrano MA - 12/09/2023 5:33 PM CDT PT Order faxed out of [employer] to the number provided. * Telephone Encounter - Araceli Vega LPN - 12/09/2023 2:38 PM CDT Gela from [facility] called asking for the PT order to be faxed FAX# [phone] documented in this encounter Plan of Treatment Not on file documented as of this encounter Visit Diagnoses Not on filedocumented in this encounter Care Teams Central Office Installer Relationship Specialty Start Date End Date Jhonny Brennan DO [address] [place] [address] PCP - General Family Medicine 04/13/23 documented as of this encounter
--- OUTSIDE RECORDS SUMMARY | 2024-02-20 23:25 | XMS_ITS | Encounter Summary ---
Author Organization [facility] Address [address] [place] [address] Care Team Providers Care Custom Grinder Name Role Phone Williammaria doloresJhonny lawson Primary Care Provider [phone] Reason for Referral * OP/Amb RFL Auth (Routine) - Pending Review Specialty Diagnoses / Procedures Referred By Contac t Referred To Contact Diagnoses Primary osteoarthritis of both knees Procedures [place] DRAIN/INJECT LARGE JOINT/BURSA Sal Parker PA-C [address] [place] [phone] Referral ID Status Reason Start Date Expiration Date V isits Requested Visits Authorized [id number] Pending Review 05/13/2023 05/12/2024 1 1 Reason for Visit * Reason Comments Follow-up F/u - Ray knee pain, pt requesting injPt scheduled for Rt(tka) 08/16/2023 Encounter Details Date Type Department Care Team (Latest Contact Info) Description 05/13/2023 11:30 AM CDT Office Visit [facility] Orthopedics [address] [place] [phone] Sal Parker PA-C [address] [place] [phone] Primary osteoarthritis of both knees (Primary Dx) Social History Tobacco Use Types Packs/Day Years Used Date Smoking Tobacco: Never Smokeless Tobacco: Never Sex and Gender Information Value Date Recorded Sex Assigned at Not on file Gender Identity Not on file Sexual Orientation Not on file documented as of this encounter Progress Notes * Sal Parker PA-C - 05/13/2023 12:00 PM CDT bilat b-b mjl , bilat csinj celebrex , * Leia Perez MA - 05/13/2023 11:27 AM CDT Chief Complaint Patient presents with ??? Follow-up F/u - Ray knee pain, pt requesting inj Pt scheduled for Rt(tka) 08/16/2023 documented in this encounter H&P Notes * Sal Parker PA-C - 05/23/2023 11:10 PM CDT DATE OF SERVICE: 05/13/2023 SUBJECTIVE: Patient is here at the office for both her knees. She is scheduled for surgery in July. She would like to get injections in each of her knee today. CLINICAL EXAMINATION: Varus knee, medial and lateral joint line crepitation, clicking, and mid flexion instability. IMPRESSION: Degenerative joint disease, bilateral knees, symptomatic. PLAN: Under sterile preparation injected each knee today with lidocaine and steroid. She tolerated it well. The following Time-Out protocol was followed: 1. Patient name and were confirmed. 2. Procedure was confirmed with patient. 3. Informed consent was obtained. 4. The appropriate site was identified and confirmed. 5. Medication order/Injectable was verified. Using sterile technique, injected the knee today with 3 cc lidocaine and 1 cc of 80 mg Depo-Medrol. Patient tolerated the procedure well. We will see her back in the office after surgery. We did put her on Celebrex. Sal Parker PA-C PJD/MedQ #: [id number] documented in this encounter Plan of Treatment Not on file documented as of this encounter Visit Diagnoses Diagnosis Primary osteoarthritis of both knees- Primary Primary localized osteoarthrosis, lower leg documented in this encounter Administered Medications Inactive Administered Medications - up to 3 most recent administrations Medication Order MAR Action Action Date Dose Rate Site lidocaine PF (Xylocaine MPF) 1 % injection 6 mL 6 mL, Intra-articular, ONCE, 1 dose, On Radha 05/13/23 at 1215 $ Given 05/13/2023 12:01 PM CDT 6 mL Other see comments methylPREDNISolone acetate (DEPO-Medrol) injection 160 mg 160 mg, Intra-articular, ONCE, 1 dose, On Radha 05/13/23 at 1215 $ Given 05/13/2023 12:01 PM CDT 160 mg Other see comments documented in this encounter Care Teams Custom Grinder Relationship Specialty Start Date End Date Jhonny Brennan DO [address] [place] [address] PCP - General Family Medicine 04/13/23 documented as of this encounter
--- OUTSIDE RECORDS SUMMARY | 2024-02-20 23:25 | XMS_ITS | Encounter Summary ---
Author Organization [facility] Address [address] [place] [address] Care Team Providers Care Buffing Wheel Operator Name Role Phone LibertadluluJhonny DO Primary Care Provider [phone] Reason for Visit * Auth/Cert (Routine) Specialty Diagnoses / Procedures Referred By Contac t Referred To Contact Procedures ID TOTAL KNEE REPLACEMENT ARTHROPLASTY TOTAL KNEE Referral ID Status Reason Start Date Expiration Date Visits Re quested Visits Authorized [id number] 1 1 Encounter Details Date Type Department Care Team (Late st Contact Info) Description 10/18/2023 11:15 AM CDT Anesthesia Event Formerly [facility] - Perioperative Surgery [address] [place] [address] Rodriguez Mckeon, [address] [place] [id number] [place] [address] [place] [address] Anesthesia Record Procedure Summary Procedure Name Responsible Anesthesiologist Anesthesia Start Time Anesthesia Stop Time RIGHT TOTAL KNEE ARTHROPLASTY (Right: Knee) Rodriguez Mckeon DO 10/18/23 1115 10/18/23 1240 Events Date Time Event Comment 10/18/2023 0856 1115 An Start 1115 An Start Data 1122 Spinal In 1125 Stop ABX 1132 PT Reassessment 1133 Electnc Sig This record is electronically signed by the providers listed under staff. 1136 Timeout Anesthesia part icipated in timeout at the time documented in the record by nursing. 1137 An Tourn Inflated Pressure: mmHg 1203 An Tourn Deflated Total Tour niquet Time ( in minutes): 1205 An Tourn Inflated Pressure: mmHg 1233 An Tourn Deflated Total Tour niquet Time ( in minutes): 1235 an stop data 1235 ANPTO2 1240 An Stop Meds Name Total midazolam 2 mg/2mL injection 4 mg fentaNYL 100 mcg/2mL injection 150 mcg propofol 200 mg/20mL injection 511.93 mg dexamethasone 4 mg/mL injection 4 mg ondansetron 4 mg/2mL injection 4 mg bupivacaine in dextrose 0.75-8.25 % (spi nal tray NO CHARGE) 2 mL lidocaine 1% (epidural/spinal tray NO CH ARGE) 1 mL tranexamic acid 1000 mg/10mL injection 1 ,000 mg ceFAZolin (Ancef) 2 g in 0.9% NaCl IV 50 mL IVPB 2 g lactated ringers infusion 700 mL * Agents Name Exp. N2O O2 Flow - Auxiliary * Blood No blood administrations on file. Lines, Drains, and Airways Type Details Placement Removal Peripheral IV Date: 10/18/23; Time: 858; Orientation: Left; Location: Hand; Gauge: 20 G 10/18/23 0859 by Amarilis Hughes RN 10/19/23 1155 by Tiffanei Christensen RN Procedural Site (Incision) 10/18/23; 1217; Anterior, Right; Knee; incision; 10/19/23; 1850 10/18/23 1217 by Nishi Lam RN 10/19/23 1850 by Generic, Auto Release documented in this encounter Social History Tobacco [...] as of this encounter Progress Notes * Art Acevedo, LOFT WORKER HEAD-AUTO BENCH MECHANIC - 10/18/2023 12:41 PM CDT ANESTHESIA POSTOP EVALUATION NOTE Procedure: RIGHT TOTAL KNEE ARTHROPLASTY (Right: Knee) Alka Phillips is a 58 year old female Patient Vitals for the past 6 hrs: BP Temp Pulse Resp SpO2 Pain Rating Score #1 Pain Scale/Observation 10/18/23 0855 137/70 98.6 ??F (37 ??C) 60 16 100 % 0 N Anesthesia Type: spinal * No Diagnosis Codes entered * Mental Status: awake, oriented, alert, neurologic status has returned to preoperative level, sufficiently recovered from acute administration of anesthesia to participate in the evaluation and neurologic status has returned to expected level of consciousness Respiratory Function: natural and requires O2 Cardiac Function: stable Postop Pain: acceptable to the patient Postop Hydration: adequate Postop Nausea: none Assessment: no apparent anesthetic complications, patient tolerated procedure well and no evidence of recall Patient Disposition: Release from Anesthesia Care NOTABLE EVENTS: No notable events documented. * Clarita Kaye DO - 10/18/2023 8:54 AM CDT ANESTHESIA PREOPERATIVE EVALUATION NOTE Procedure: RIGHT TOTAL KNEE ARTHROPLASTY (Right: Knee) Vitals: No data found. LMP: No LMP recorded (lmp unknown). Patient is postmenopausal. OB Status: Postmenopausal ANESTHESIA PRE-EVALUATION NOTE Physical Exam: Orientation X3 Airway/Mallampati Score: II Mouth Opening Distance: 3 fingerwidths Neck ROM: full Teeth: normal Heart: normal - S1 S2 Lungs: clear to ausculation bilaterally ANESTHESIA PLAN ASA Score: 1 NPO Status: No solids since midnight and No liquids within 2 hours Anesthesia Plan: spinal Planned Induction: intravenous Planned Postop Destination: PACU Anesthetic plan was discussed with: patient Anesthetic Plan discussion was: Consented BMI, Height, Weight Tobacco History Estimated body mass index is 28.72 kg/m?? as calculated from the following: Height as of this encounter: 1.549 m (5' 1 ). Weight as of this encounter: 68.9 kg (152 lb). Social History Tobacco Use Smoking Status Never Smokeless Tobacco Never Alcohol History Drug History Social History Substance and Sexual Activity Alcohol Use Yes Alcohol/week: 7.0 standard drinks of alcohol Types: 7 Standard drinks or equivalent per week Social History Substance and Sexual Activity Drug Use Not on file Outpatient Medications: Inpatient Medications: No outpatient medications have been marked as taking for the 10/18/23 encounter (Hospital Encounter). Current Facility-Administered Medications Medication Dose Last Admin 0.9% NaCl 3 mL And 0.9% NaCl 1-10 mL acetaminophen 1,000 mg ceFAZolin 2 g insulin regular (HumuLIN R; NovoLIN R) 100 units/mL subcutaneous injection 0-6 Units lactated ringers lactated ringers New Bag at 10/18/23 0852 scopolamine 1 patch 1 patch at 10/18/23 0852 And scopolamine patch placement confirmation Allergies: No Known Allergies Relevant Problems Problem List: Patient Active Problem List Diagnosis Date Noted Primary osteoarthritis of right knee 04/19/2023 Priority: Not Prioritized Medical History: No past medical history on file. Surgical History: No past surgical history on file. MILK TESTER Status: No LMP recorded (lmp unknown). Patient is postmenopausal. Postmenopausal OB History No obstetric history on file. Covid Vaccine: Lab Results: Recent Labs Component Name 08/23/23 0935 WBC 8.0 RBC 4.29 HCT 41.0 HGB 13.6 PLTCOUNT 249 MCV 95.6 MCH 31.7 MCHC 33.2 MPV 9.9 Recent Labs Component Name 08/23/23 0935 SODIUM 142 POTASSIUM 4.4 CALCIUM 10.2 CHLORIDE 106 CO2 25 GLUCOSE 106* BUN 16 CREATININE 0.76 No results found for requested labs within last 120 days. Recent Labs Result Component Current Result Albumin 4.0 (08/23/2023) Alkaline Phosphatase 98 (08/23/2023) ALT 23 (08/23/2023) Anion Gap 11 (08/23/2023) AST 23 (08/23/2023) Bilirubin Total 0.8 (08/23/2023) eGFR by CKD-EPI >90 (08/23/2023) documented in this encounter Procedure Notes * Art Acevedo APRN-AUTO BENCH MECHANIC - 10/18/2023 11:35 AM CDTAssociated Order(s): Neuraxial Block Neuraxial Block Note Pre-Procedure: Procedure Name: Neuraxial Block Patient Location: OR Indications: surgical anesthesia Pre-Anesthetic Checklist: Patient identified, IV Checked, Risks and benefits discussed, Surgical consent verified, Monitors and equipment, Site examined, Pre-op evaluation done, Informed consent obtained, Questions answered/anesthesia questions answered and Allergies reviewed Anticoagulation/ Anti-thrombosis status confirmed? Yes Supplemental O2: room air Monitors: BP and continuous pluse ox Patient Condition: sedated, meaningful contact maintained throughout procedure Patient Sedated? Nursing sedation administration Sedation Type: mild Sedation Agents (manual): versed fentanyl mL Procedure: Block Type: Spinal Prep: Betadine Sterile Field: mask, cap/hat, sterile established and sterile gloves Approach: midline Skin was localized? Nursing documentation on [facility] Skin localized with: Lidocaine 1% and 1 mL Spinal Block: Needle Type: spinal needle Needle Gauge: 22 Needle Length: 90 mm Placement Site: L3-4 Number of Attempts: 1 CSF: aspiration before injection, free flow Local anesthetics used? Nursing documentation on the [facility] Spinal Local Anesthetic: Bupivacaine: 0.75% in dextrose 2 mL Degree of difficulty: none Procedure Tolerance: tolerated well performed while the patient was sedated Sensory Level: lower level Motor Blockade: Yes Position post procedure: supine Vital Signs: Vital signs monitored and stable throughout. See anesthesia record for details. Start Time: 10/18/2023 11:15 AM End Time: 10/18/2023 11:22 AM Total Time: 7 Staff: Anesthesia Provider: Art Acevedo APRN-CRNA - performed the procedure documented in this encounter Miscellaneous Notes * Anesthesia Transfer of Care - Art Acevedo APRN-CRNA - 10/18/2023 12:41 PM CDT ANESTHESIA TRANSFER OF CARE NOTE Today's Date: 10/18/2023 Date of : 1965 Patient: Alka Phillips Procedure(s): RIGHT TOTAL KNEE ARTHROPLASTY Surgeon(s): Primary: Aaron Rodriguez MD Preop Diagnosis: * No Diagnosis Codes entered * Pre-op Meds (From admission, onward) Start Stop Status Route Frequency Ordered 10/18/23 1300 0.9% NaCl infusion -- Sent IV CONTINUOUS 10/18/23 1240 10/18/23 0839 0.9% NaCl injection 1-10 mL See Hyperspace for full Linked Orders Report. -- Dispensed IK PRN 10/18/23 0839 10/18/23 0845 0.9% NaCl injection 3 mL See Hyperspace for full Linked Orders Report. -- Dispensed IK EVERY 8 HOURS 10/18/23 0839 10/18/23 1400 0.9% NaCl injection 3 mL See Hyperspace for full Linked Orders Report. -- Dispensed IK EVERY 8 HOURS 10/18/23 1240 10/18/23 1240 0.9% NaCl injection 3 mL See Hyperspace for full Linked Orders Report. -- Dispensed IK PRN 10/18/23 1240 10/18/23 1240 acetaminophen (Tylenol) suppository 650 mg See Hyperspace for full Linked Orders Report. -- Sent RE EVERY 6 HOURS PRN 10/18/23 1240 10/18/23 0845 acetaminophen (Tylenol) tablet 1,000 mg 10/18/23 2044 Verified PO PRE-OP ONCE 10/18/23 0839 10/18/23 1400 acetaminophen (Tylenol) tablet 1,000 mg -- Sent PO 3 TIMES DAILY 10/18/23 1240 10/18/23 1240 acetaminophen (Tylenol) tablet 650 mg See Hyperspace for full Linked Orders Report. -- Sent PO EVERY 6 HOURS PRN 10/18/23 1240 10/18/23 1240 acetaminophen (Tylenol) tablet 650 mg -- Sent PO EVERY 4 HOURS PRN 10/18/23 1240 10/18/23 1240 artificial tears ophthalmic solution 2 drop -- Sent BOTH EYES EVERY 6 HOURS PRN 10/18/23 1240 10/18/23 2100 aspirin chew tablet 81 mg -- Sent PO 2 TIMES DAILY 10/18/23 1240 10/18/23 1240 bisacodyl (Dulcolax) suppository 10 mg -- Sent RE ONCE PRN 10/18/23 1240 10/21/23 0800 bisacodyl EC (Dulcolax) tablet 10 mg 10/21/23 1959 Sent PO ONCE 10/18/23 1240 10/20/23 0800 bisacodyl EC (Dulcolax) tablet 5 mg 10/20/23 195 Sent PO ONCE 10/18/23 1240 10/18/23 1240 bisacodyl EC (Dulcolax) tablet 5 mg -- Sent PO ONCE PRN 10/18/23 1240 10/18/23 1240 calcium carbonate (Tums) chew tablet 2 tablet -- Sent PO EVERY 4 HOURS PRN 10/18/23 1240 10/18/23 0845 ceFAZolin (Ancef) 2 g in 0.9% NaCl IV 50 mL IVPB 10/18/23 1125 Completed IV ONCE 10/18/23 0839 10/18/23 0845 celecoxib (CeleBREX) capsule 400 mg 10/18/23 0852 Completed PO ONCE 10/18/23 0839 10/18/23 1240 diphenhydrAMINE (Benadryl) capsule 25 mg -- Sent PO EVERY 6 HOURS PRN 10/18/23 1240 10/18/23 1245 docusate sodium (Colace) capsule 100 mg -- Sent PO 2 TIMES DAILY 10/18/23 1240 10/18/23 0845 famotidine (Pepcid) tablet 20 mg 10/18/23 0852 Completed PO ONCE 10/18/23 0839 10/18/23 1240 HYDROmorphone (Dilaudid) injection 0.4 mg -- Sent IV EVERY 3 HOURS PRN 10/18/23 1240 10/18/23 0839 insulin regular human 1 unit/mL injection -- Verified IV EVERY 2 HOURS PRN 10/18/23 0839 10/18/23 1240 ketorolac (Toradol) injection 15 mg 10/22/23 2359 Sent IV EVERY 6 HOURS PRN 10/18/23 1240 10/18/23 0845 lactated ringers infusion -- Dispensed IV CONTINUOUS 10/18/23 0839 10/18/23 0845 lactated ringers infusion 10/17/24 0844 Dispensed IV PRE-OP CONTINUOUS 10/18/23 0839 10/18/23 0845 lidocaine PF (Xylocaine MPF) 1 % injection 0.2 mL 10/18/23 0853 Completed INFILTRATION PRE-OP ONCE 10/18/23 0839 10/18/23 1240 melatonin tablet 3 mg -- Sent PO AT BEDTIME PRN - MR X 1 10/18/23 1240 10/18/23 1240 metoclopramide (Reglan) injection 5 mg -- Sent IV EVERY 6 HOURS PRN 10/18/23 1240 10/18/23 1240 metoclopramide (Reglan) injection 5 mg -- Sent IM EVERY 6 HOURS PRN 10/18/23 1240 10/18/23 1240 naloxone (Narcan) injection 0.4 mg -- Sent IV PRN 10/18/23 1240 10/18/23 1240 ondansetron (disintegrating) (Zofran ODT) tablet 4 mg -- Sent PO EVERY 6 HOURS PRN 10/18/23 1240 10/18/23 1240 ondansetron (Zofran) injection 4 mg -- Sent IV EVERY 6 HOURS PRN 10/18/23 1240 10/18/23 1240 oxyCODONE (immediate release) (Roxicodone) tablet 10 mg See Hyperspace for full Linked Orders Report. -- Sent PO EVERY 4 HOURS PRN 10/18/23 1240 10/18/23 1240 oxyCODONE (immediate release) (Roxicodone) tablet 5 mg See Hyperspace for full Linked Orders Report. -- Sent PO EVERY 4 HOURS PRN 10/18/23 1240 10/18/23 1245 polyethylene glycol 3350 (Miralax) packet 17 g -- Sent PO DAILY 10/18/23 1240 10/18/23 1240 polyethylene glycol 3350 (Miralax) packet 17 g -- Sent PO DAILY PRN 10/18/23 1240 10/18/23 0845 povidone-iodine (Betadine) 5 % solution 10/18/23 0852 Completed NA ONCE 10/18/23 0839 10/18/23 0845 scopolamine (Transderm-Scop) 1 patch See Hyperspace for full Linked Orders Report. 10/21/23 0852 Dispensed TD PRE-OP ONCE 10/18/23 0839 10/18/23 0900 scopolamine patch placement confirmation See Hyperspace for full Linked Orders Report. 10/17/24 0859 Verified TD 2 TIMES DAILY 10/18/23 0839 10/18/23 1240 sodium phosphate rectal (Fleet Saline) enema 133 mL -- Sent RE ONCE PRN 10/18/23 1240 10/18/23 1240 throat lozenge 1 lozenge -- Sent PO EVERY 2 HOURS PRN 10/18/23 1240 * No Diagnosis Codes entered * . No Known Allergies Vitals: No data found. Lines, Drains, and Airways Type Details Placement Removal Peripheral IV Date: 10/18/23; Time: 858; Orientation: Left; Location: Hand; Gauge: 20 G; Locals: Injectable 10/18/23 0859 by Amarilis Hughes RN Intraprocedure I/O Totals None Patient Transfer Location: PACU Transport Airway: spontaneous respirations and supplemental O2 Complications: None Handoff Given? Yes Checklist or Protocol - The oneill handoff elements that must be included in the transfer of care checklist include: 1. Identification of patient. 2. Identification of responsible practitioner (PACU nurse or advanced practitioner). 3. Discussion of pertinent medical history. 4. Discussion of the surgical/procedure course (procedure, reason for surgery, procedure performed). 5. Intraoperative anesthetic management and issue/concerns. 6. Expectations/Plans for the early post-procedure period. 7. Opportunity for questions and acknowledgement of understanding of report from the receiving PACUteam. TREVER Montez documented in this encounter Plan of Treatment Not on file documented as of this encounter Procedures Procedure Name Priority Date/Time Associated Diagnosis Comments NEURAXIAL BLOCK Routine 10/18/2023 11:35 AM CDT documented in this encounter Results * Neuraxial Block (10/18/2023 11:35 AM CDT) Narrative Art Acevedo, DANAE-AUTO BENCH MECHANIC - 10/18/2023 11:35 AM CDT Art Acevedo, DANAE-AUTO BENCH MECHANIC ? 10/18/2023 11:35 AM Neuraxial Block Note [...] ??midline Skin was localized? ??Nursing documentation on [facility] Skin localized with: ??Lidocaine 1% and 1 mL Spinal Block: ?? Needle Type: ??spinal needle Needle Gauge: ??22 Needle Length: ??90 mm Placement Site: ??L3-4 Number of Attempts: ??1 CSF: ??aspiration before injection, free flow Local anesthetics used? ??Nursing documentation on the MAR Spinal Local Anesthetic: ? Bupivacaine: ??0.75% in [...] ??7 Staff: ?? Anesthesia Provider: ??Art Acevedo, DANAE-AUTO BENCH MECHANIC ?? - ?? performed the procedure Rodriguez Mckeon DO GENERAL ANESTHESIA O RDERABLES documented in this encounter Visit Diagnoses Not on filedocumented in this encounter Administered Medications Inactive Administered Medications - up to 3 most recent administrations Medication Order MAR Action Action Date Dose Rate Site BUPivacaine in dextrose (spinal) (Sensorcaine) injection Intrathecal, PRN, Starting on Wed10/18/23 at 1122, Until Wed10/18/23 at 1240, Anesthesia Intra-op $ Given 10/18/2023 11:22 AM CDT 2 mL ceFAZolin (Ancef) 2 g in 0.9% NaCl IV 50 mL IVPB 2 g, at 100 mL/hr, Intravenous, ONCE, 1 dose, On Wed10/18/23 at 0845, Administer??within 60 minutes??before surgical incision to ensure adequate antibiotic concentration at surgical sites at the time of incision.??Antibiotic infusion must be completed ZERO-TEN minutes?? prior to incision or tourniquet, Indication for anti-infective therapy: Surgical prophylaxis, Pre-op $ New Bag/Syringe 10/18/2023 11:25 AM CDT 2 g dexAMETHasone (Decadron) injection Intravenous, PRN, Starting on Wed10/18/23 at 1130, Until Wed10/18/23 at 1240, Anesthesia Intra-op $ Given 10/18/2023 11:30 AM CDT 4 mg fentaNYL (PF) (Sublimaze) injection Intravenous, PRN, Starting on Wed10/18/23 at 1115, Until Wed10/18/23 at 1240, Anesthesia Intra-op $ Given 10/18/2023 12:20 PM CDT 50 mcg $ Given 10/18/2023 11:15 AM CDT 100 mcg lactated ringers infusion at 20 mL/hr, Intravenous, PRE-OP CONTINUOUS, Starting on Wed10/18/23 at 0845, Until Wed10/18/23 at 1411, Please place order for second bag of LR for all robotic surgeries, and all carotid endarterectomies., Pre-op Restarted 10/18/2023 12:27 PM CDT $ New Bag/Syringe 10/18/2023 8:52 AM CDT 20 mL/ hr lidocaine (Xylocaine Mpf) 1 % injection Intravenous, PRN, Starting on Wed10/18/23 at 1121, Until Wed10/18/23 at 1240, Anesthesia Intra-op $ Given 10/18/2023 11:21 AM CDT 1 mL midazolam (Versed) injection Intravenous, PRN, Starting on Wed10/18/23 at 1115, Until Wed10/18/23 at 1240, Anesthesia Intra-op $ Given 10/18/2023 11:49 AM CDT 2 mg $ Given 10/18/2023 11:15 AM CDT 2 mg ondansetron (Zofran) injection Intravenous, PRN, Starting on Wed10/18/23 at 1130, Until Wed10/18/23 at 1240, Anesthesia Intra-op $ Given 10/18/2023 11:30 AM CDT 4 mg propofol (Diprivan) injection Intravenous, CONTINUOUS PRN, Starting on Wed10/18/23 at 1123, Until Wed10/18/23 at 1240, Anesthesia Intra-op Rate Change 10/18/2023 12:14 PM CDT 140 mcg/kg/min 57.876 mL/hr Rate Change 10/18/2023 12:04 PM CDT 120 mcg/kg/min 49.608 mL/hr Rate Change 10/18/2023 11:28 AM CDT 100 mcg/kg/min 41.34 m L/hr tranexamic acid (Cyklokapron) injection Intravenous, PRN, Starting on Wed10/18/23 at 1129, Until Wed10/18/23 at 1240, Anesthesia Intra-op $ Given 10/18/2023 11:29 AM CDT 1,000 mg documented in this encounter Care Teams Buffing Wheel Operator Relationship Specialty Start Date End Date Jhonny Brennan DO [address] [place] [address] PCP - General Family Medicine 04/13/23 documented as of this encounter
--- OUTSIDE RECORDS SUMMARY | 2024-02-20 23:25 | XMS_ITS | Encounter Summary ---
Author Organization [facility] Address [address] [facility] [place] [address] Care Team Providers Care Prototype Fabricator Name Role Phone Jhonny Brennan DO Primary Care Provider [phone] Reason for Referral * Home Health Care (Routine) - Pending Review Specialty Diagnoses / Procedures Referred By Jorge t Referred To Contact Home Health Services Diagnoses [place] of [place] [address] [place] [address] [facility] [address] [address] Referral ID Status Reason Start Date Expiration Date Visits Requested Visits Authorized [id number] Pending Review Specialty Services Required 10/18/2023 10/17/2024 1 1 * (Routine) - Pending Review Specialty Diagnoses / Procedures Referred By Contac t Referred To Contact Procedures [place] [address] [place] [address] [place] [address] [place] [address] Referral ID Status Reason Start Date Expiration Date V isits Requested Visits Authorized [id number] Pending Review 10/18/2023 10/17/2024 1 1 Reason for Visit * Auth/Cert (Routine) Specialty Diagnoses / Procedures Referred By Contac t Referred To Contact Procedures CA TOTAL KNEE REPLACEMENT ARTHROPLASTY TOTAL KNEE Referral ID Status Reason Start Date Expiration Date Visits Re quested Visits Authorized [id number] 1 1 Encounter Details Date Type Department Care Team (Latest Contact Info) Description 10/18/2023 8:11 AM CDT - 10/19/2023 12:25 PM CDT Hospital Encounter DP 1[facility] [address] [place] [address] [place] [address] [facility] [address] [place] [address] Surgery General Discharge Disposition: Home Health Care Svc Social History Tobacco Use Types Packs/Day Years [...] Your discharge diagnosis is: Status post surgery [[id number]] No special diet needed Resume your normal [...] it is waterproof. Wrap the area with bnzpk-l-pylk or saran wrap before youshower. Do not let water saturate the bandage. Remove iltvu-d-yvkp/saran wrap after your shower. DoNOT shower if [...] this problem. If you become consti pated, ekkq-nhp-rhfrwjl laxatives are available. - If your pain [...] Aaron Rodriguez MD Specialty: Orthopedic Surgery, Radiology [address] [place] [address] Make appointment to follow up in: Other: [...] therapy, Mobilizing with SBA Discharging home with C, meds with pt, instructions given * Charbel Cao PharmD - 10/19/2023 12:04 PM CDT Images from [...] reduced pain/discomfort as evidenced by pain scores 10/19/2023 1139 by Tiffanie Christensen RN Outcome: Adequate for Discharge 10/19/2023 1139 by Tiffanie Christensen, RN Note: Managed with pharmacological and non-pharmacological interventions for comfort; Tolerated performing ADLs. Problem: Fall Risk Goal: Patient will remain free of falls 10/19/2023 1139 by Tiffanie Christensen RN Outcome: Adequate for Discharge 10/19/2023 1139 by Tiffanie Christensen, ERIN Note: Free from falls; maintain safety of the patient by providing fall precautions and interventions. Problem: Procedural Site (Incision) Care Goal: Incision remains intact with edges well approximated 10/19/2023 1139 by Tiffanie Christensen RN Outcome: Adequate for Discharge 10/19/2023 1139 by Tiffanie Christensen RN Note: Silver Dressing maintained clean, dry and intact. No signs of any infection noted on surgicalsite. * Aminah Leung, RESIDENTIAL REAL ESTATE SALES MANAGER - 10/19/2023 10:56 AM CDT Physical Therapy [...] fall. Bed Mobility: Supine to Sit: Complete [place] Transfers: Sit to Stand: Stand By Assist;Requires [...] serves as the discharge summary. NEIDA Burr, 5686 * Moo Zaidi MD - 10/19/2023 10:53 [...] using a voice recognition system without human sat act instructor. This report has not been adjusted for typographical, grammatical, and syntax mistakes by a trained neuropsychology medical consultant. Moo Zaidi MD [employer] Exam [...] Health Care Anticipated level of care provider: [facility] Prior to admission level of care: Home Prior to admit provider: None Patient Goals: Home with [facility] Plans: Discharge needs identified. See progress notes for details. Case Management to follow for discharge planning. Comments: Presents with Degenerative joint disease, right knee. Pt drives and is Independent with mobility and self care, lives in one level home with spouse. Has WW. D/C Plan at this time: Home with spouse and [facility]. Spouse to provide transportation. 10/19/2023: POD #1 Right Total Knee Arthroplasty PT following. Lives with: Spouse Physical Limitations: None Requires Assistance With: None Preferred Pharmacy: [facility] - [address] [facility] [address] [address] [facility] [address] Advance Directive: No Advance Directive Information Given: Will be offered upon admission Would you like assistance on completing and executing or revising an Advance Directive?: No READMISSION RISK SCORE is N/A at 10:48 AM 10/19/2023. 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 No Patient/Family provided with list of resources? No Preferred Provider / High Quality Network List given?: No Reason for provider choice: Out of Area, Pt. choice - Physician driven Equipment at Home: Chair-Shower;Walker-2 Wheeled;Cane-Straight;Wheelchair-Standard;Mechanic Field Service;Sock Aid;Shoe Horn-Long Handled List DME pt. requires but does not have.: None Water Filter Cleaner Referral: No Will continue to follow. For [...] WBAT OK to dc home today with [facility] Follow up in office in 3 [...] knee Pt eager to DC home with [facility] tomorrow Magali Hurley RN * Magali Hurley [...] Structure: Two Story;Basement Equipment at Home: Chair-Shower;Walker-2 Wheeled;Cane-Straight;Wheelchair-Standard;Mechanic Field Service;Sock Aid;Shoe Horn-Long Handled Prior Level of Functioning: [...] Kenny RN - 10/18/2023 9:59 AM CDT [facility] is out of service area with patient's zip code, and therefore is unable to accept patient for home health services. Please see Juan's note for refer out details. Thank you. Zee Kenny [facility] Home [phone] * Juan Cabrera - 10/04/2023 2:46 PM CDT Home Health Agency: [facility] Confirmed: 10/04/2023 Start Date: 10/19/2023 Contact: Yuliya [phone] Fax:[phone] * Juan Cabrera - 09/28/2023 7:16 AM CDT -Verified patient does not have preferred HH agency: Does not have preference -Advised our first choice is [facility], if unavailable would find one that works with insurance: Is ok with that -Advised will receive e-mail regarding [facility], advised to complete before surgery: Reminded/Completed -Verified e-mail: Yes -Recovering at home: at home -Reminder to bring payment for RX-Yes * Juan Cabrera - 09/27/2023 11:41 AM CDT First Attempt: Called to verify [facility] agency choice, recovering at home, [facility] information [...] Parker PA-C - 10/17/2023 2:22 PM CDT [facility] PRE-OPERATIVE HISTORY AND PHYSICAL PATIENT NAME: Maxine Phillips : 1965 CSN: [id number] HISTORY OF PRESENT ILLNESS: This is a [...] 4 Grams (4000 mg) / 24 hours. ProviderIsabel MD celecoxib (CeleBREX) 200 MG capsule Take 1 [...] Parker PA-C - 10/17/2023 2:22 PM CDT [facility] PRE-OPERATIVE HISTORY AND PHYSICAL PATIENT NAME: Maxine Phillips : 1965 CSN: [id number] HISTORY OF PRESENT ILLNESS: This is a [...] Parker PA-C - 10/17/2023 2:22 PM CDT [facility] PRE-OPERATIVE HISTORY AND PHYSICAL PATIENT NAME: Maxine Phillips : 1965 CSN: [id number] HISTORY OF PRESENT ILLNESS: This is a [...] PASTORAL CARE SUMMARY & RECOMMENDATION Patient appreciates Captain Of Guards visit but declines any spiritual concernsat this time Reason for Encounter Order response Spiritual Assessment Content (Social, emotional, helen--concerns/hopes/resources) Interventions Conversation. Coping skills Observed Outcomes Gratitude;Feels Kern;Coping Well Future Plan Will Remain Available if Requested Thank you for involving me in the care of Alka Phillips Rev. [facility] Castillo. Spike Captain Of Guards 10/18/23 1432 Spiritual In what ways can we or our chaplains presently attend to your spiritual, emotional or cultural needs? Captain Of Guards Visit Visit Type Assessment Date 10/18/23 Captain Of Guards Visiting Patient [facility] Pastoral Care Reason for Visit Order Response Pastoral Care Visit Type(s) Initial Visit Encounter Type Patient and Family Spiritual History Belief System [facility] Community Family and Friends Support Spiritual Assessment Spiritual Assessment Content Interventions Pastoral Care Conversation Plan/Outcome Plan Will Remain Available if Requested Outcomes Gratitude;Feels Kern;Coping Well * Yoon Woodard MD - 10/18/2023 [...] op incision+ Expected post op changes present SUPERVISOR FUSING ROOM. Alert , No facial asymmetry, clear speech. [...] Aaron Rodriguez MD SURGEON: Aaron Rodriguez MD WEIGHT CONTROL LECTURER: Sal Parker PA-C The skilled assistance of the mid level provider was necessary for the effective and successful completion of this case. The physician oral surgery assistant was essential for the proper positioning, manipulationof [...] Procedure Name Priority Date/Time Associated Diagnosis Comments CA TOTAL KNEE REPLACEMENT 10/18/2023 10:49 AM CDT Special Needs BIOMET (RAFFI) NOTIFIED-NB documented in this encounter Visit Diagnoses Diagnosis Primary osteoarthritis of right knee- Primary Primary localized osteoarthrosis, lower leg Primary osteoarthritis of right knee Primary localized osteoarthrosis, lower leg documented in [...] after each use and blood draws., Post-op acetaminophen (Tylenol) suppository 650 mg 650 mg, [...] chew, crush or cut in half., Post-op calcium carbonate (Tums) chew tablet 2 tablet [...] IM route if IV is unavailable., Post-op naloxone (Narcan) injection 0.4 mg 0.4 mg, [...] Given 10/18/2023 1:14 PM CDT 1,000 mg documented in this encounter Active and Recently [...] RN) 0829 ($ Given - Provider: Tiffanie Christensen RN)1216 ($ Given - Provider: Tiffanie Christensen RN) aspirin chew tablet 81 mg 81 mg, [...] ($ New Bag/Syringe - Provider: Art Acevedo APRN-HYDROPONICS GROWER) celecoxib (CeleBREX) capsule 400 mg (COMPLETED) 400 [...] Post-op 1552 ($ Given - Provider: Magali Hurley, RN)202 ($ Given - Provider: Bandar Aguiar, ERIN) 0831 ($ Given - Provider: Tiffanie Christensen, RN) ePHEDrine 50 MG/ML injection 25 mg (COMPLETED) 25 mg, Intramuscular, NOW, 1 dose, On Wed10/18/23 at 1400, Must be diluted prior to use. 1359 ($ Given - Provider: Teresa Oswald, ERIN) famotidine (Pepcid) tablet 20 mg (COMPLETED) [...] Refused-Patient) 0829 ($ Given - Provider: Tiffanie Christensen, ERIN) povidone-iodine (Betadine) 5 % solution (COMPLETED) Nasal, [...] hypotension. 1314 ($ Given - Provider: Teresa Oswald RN) Continuous Medication Order 10/17/2023 10/18/2023 10/19/2023 0.9% NaCl infusion at 100 mL/hr, Intravenous, CONTINUOUS, Starting on Wed10/18/23 at 1300, Until Wed10/19/23 at 1355, Post-op 1553 ($ New Bag/Syringe - Provider: Magali Hurley RN) lactated ringers infusion (CANCELED) at 100 mL/hr, Intravenous, CONTINUOUS, Starting on Wed10/18/23 at 0845, Until Wed10/18/23 at 1411, Pre-op 1350 ($ New Bag/Syringe - Provider: Teresa Fricker, RN) lactated ringers infusion (CANCELED) at 20 mL/hr, Intravenous, PRE-OP CONTINUOUS, Starting on Wed10/18/23 at 0845, Until Wed10/18/23 at 1411, Please place order for second bag of LR for all robotic surgeries, and all carotid endarterectomies., Pre-op 0852 ($ New Bag/Syringe - Provider: Amarilis Hughes RN)1226 (Paused - Provider: Art Acevedo APRN-HYDROPONICS GROWER - Comment: Switch to gravity)1227 (Restarted - [...] Post-op 1648 ($ Given - Provider: Magali Hurley, ERIN) 0637 ($ Given - Provider: Bandar Aguiar [...] 1552 ($ Given - Provider: Magali Hurley RN)2022 ($ Given - Provider: Bandar Aguiar RN) 0015 ($ Given - Provider: Bandar Aguiar RN)0403 ($ Given - Provider: Bandar Aguiar RN)0830 ($ Given - Provider: Tiffanie Christensen RN)1216 ($ Given - Provider: Tiffanie Christensen RN) oxyCODONE (immediate release) (Roxicodone) tablet 5 mg(Linked [...] patient cannot tolerate oral intake, Post-op 1552 (See Alternative - Provider: Magali Hurley RN)202 (See Alternative - Provider: Bandar Aguiar RN) 0015 (See Alternative - Provider: Bandar Aguiar RN)0403 (See Alternative - Provider: Bandar Aguiar RN)0830 (See Alternative - Provider: Tiffanie Christensen RN)1216 (See Alternative - Provider: Tiffanie Christensen RN) polyethylene glycol 3350 (Miralax) packet 17 g [...] Post-op documented in this encounter Care Teams Prototype Fabricator Relationship Specialty Start Date End Date Jhonny Brennan DO [address] [place] [address] PCP - General Family Medicine 04/13/23 documented as of this encounter
--- OUTSIDE RECORDS SUMMARY | 2024-02-20 23:25 | XMS_ITS | Encounter Summary ---
Author Organization [facility] Address [address] [facility] [place] [address] Care Team Providers Care Field Examiner Name Role Phone LibertadJhonny lawson Primary Care Provider [phone] Reason for Visit * Reason Onset Date Comments Forms 12/15/2023 Encounter Details Date Type Department Care Team (Late st Contact Info) Description 12/15/2023 Telephone [facility] [id number] [place] [phone] [place] [address] [address] Forms Social History Tobacco Use Types Packs/Day Years [...] Telephone Encounter - Dina Serrano MA - 12/17/2023 10:50 AM CDT Received the order, Dr. Rodriguez signed it and I faxed it back this morning. * Telephone Encounter - Dina Serrano MA - 12/16/2023 3:34 PM CDT Called and asked Cedric to re-send the order, since I don't have that. I gave her our back fax number to send it again. * Telephone Encounter - Dina Serrano MA - 12/15/2023 6:16 PM CDT We have yet to receive the fax with this order number. They need to re-fax it.Everything they have sent us thus far has been signed and faxed back. That particular one is not one of them. * Telephone Encounter - Bre Olguin - 12/15/2023 4:12 PM CDT Who is calling? Ms Steele at [facility] If other than self is caller listed on the HIPAA? no What is the reason for call? Ms Steele is asking for the orders for updated frequency for physical therapy visits from Dates Of Service 11/25/2023 through 12/04/2023 to be signed and returned. Ms Setele advises the forms have been mailed and called requesting them to be returned signed 3 times so far. Expected Response from the Clinic? ( ex. Call back, etc..) Requesting all forms from [facility] w/tracking number [id number]; (1 page document) signed and faxed back to them at fax # [phone] Did you notify caller it would take 24-48 hours for the office to get back to them? YES documented in this encounter Plan of Treatment Not on file documented as of this encounter Visit Diagnoses Not on filedocumented in this encounter Care Teams Field Examiner Relationship Specialty Start Date End Date Jhonny Brennan DO [address] [place] [address] PCP - General Family Medicine 04/13/23 documented as of this encounter
--- OUTSIDE RECORDS SUMMARY | 2024-02-20 23:25 | XMS_ITS | Clinical Summary ---
Author Organization [facility] [employer] [facility] Address [address] [facility] [address] Care Team Providers Care Clinical Resource Nurse Name Role Phone LibertadJhonny lawson Primary Care Provider [phone] Source Comments [facility] [employer],non-owned Affiliates and Associated Physician Practices is amultiple site organization consisting of ambulatory clinics and hospital sitesin [place], [place], [place] and [place]. This disclosure is being madepursuant to the Care Everywhere program and may not contain all information available regarding this patient. Last updated 17.[facility] [employer] Allergies No known active allergies Medications * [...] Date Primary osteoarthritis of right knee 04/19/2023 Encounters Date Type Department Care Team Description 01/14/2024 Telephone [facility] [address] [place] [address], [address] [place] [phone] Aaron Rodriguez MD Patient Requested Call (Patient called in to ask if she is cleared to have scuba diving lessons. She needs an answer within 48 hours) 12/28/2023 12:30 PM CDT Office Visit [facility] [address] [place] [address], [address] [place] [phone] Aaron Rodriguez MD Aftercare following right knee joint replacement surgery (Primary Dx) 12/15/2023 Telephone [facility] [address] [place] [address], [address] [phone] Aaron Rodriguez MD Forms 12/09/2023 Telephone [facility] [address] [place] [address], [address] [phone] Aaron Rodriguez MD Order 12/09/[address], [address] [place] [address] Aaron Rodriguez MD Physical Therapy 12/06/2023 Telephone [facility] [address] [place] [address], [address] [phone] Aaron Rodriguez MD Patient Requested Call (pt called in to report that she does not feel like her surgical knee is progressing she still has severe stiffness. She will like a call back with suggestions for symptom relief.) 11/30/2023 Telephone [facility] [address] [place] [address], [address] [place] [phone] Aaron Rodriguez MD Order 11/29/2023 3:20 PM CDT Office Visit [facility] [address] [place] [address], [address] [phone] Aaron Rodriguez MD Aftercare following right knee joint replacement surgery (Primary Dx) 11/29/2023 2:15 PM CDT Ancillary Procedure [facility] - Radiology [address] [place] [address] Aaron Rodriguez MD Aftercare following right knee joint replacement surgery from Last 3 Months Social History Tobacco Use Types Packs/Day Years [...] Mass Index 29.97 10/18/2023 2:28 PM CDT Plan of Treatment Health Maintenance Due Date Last Done Comments LUISITO (AGES 45-75) - COL ON CA SCREENING 1965 COLON MONITORING 1965 COLONOSCOPY - COLON CA SCREENING 1966 CT COLONOGRAPHY - COLON CA SCREENING 1965 Colorectal Cancer Screening 1965 FIT - COLON CA SCREENING 1966 FLEX SIG - COLON CA SCREENING 1966 LIPID TESTING 1965 MAMMOGRAM 1965 PAP SMEAR 1966 HIV SCREENING 1981 HEPATITIS C SCREENING 12/28/1983 DTAP/TDAP/TD VACCINES (1 - Tdap) 1985 HEPATITIS B VACCINE (1 of 3 - 19+ 3-dose series) 1985 ZOSTER VACCINE (1 of 2) 01/02/2016 DEPRESSION SCREENING 03/01/2023 COVID-19 VACCINE (2023-2 5 season) 2023 INFLUENZA VACCINE (#1) 2023 SCREENING FOR DIABETES 08/22/2026 08/23/2023 HIB VACCINE Aged Out No longer eligi ble based on patient's age to complete this topic HPV VACCINE Aged Out No longer eligi ble based on patient's age to complete this topic MENINGOCOCCAL VACCINE Aged Out No leslie donna eligible based on patient's age to complete this topic PNEUMOCOCCAL VACCINE Aged Out No long er eligible based on patient's age to complete this topic Medical Devices Implanted Type Area Celery Stripper Device Identifier Shelf Expiration Date Model / Serial / Lot Cmnt Bone Plc R 40gm Grn Implanted:Qty: 1 on 10/18/2023 by Aaron Rodriguez MD at [facility] Right: Knee [employer] 02/28/2026 [id number] / / [id number] Tray Tib 71mm Kn Cocr I Beam Implanted:Qty: 1 on 10/18/2023 by Aaron Rodriguez MD at [facility] Right: Knee [employer] 04/27/2032 [id number] / / [id number] Cmpnt Fem Kn Rt Cr Cmnt Prm Vngrd Intlk Implanted:Qty: 1 on 10/18/2023 by Aaron Rodriguez MD at [facility] Right: Knee [employer] 06/17/2033 [id number] / / [id number] Cmpnt Ptlr Std 28mm 3 Pg Kn Ser A Implanted:Qty: 1 on 10/18/2023 by Aaron Rodriguez MD at [facility] Right: Knee [employer] 08/25/2028 [id number] / / [id number] Brng 93r48az Vngrd Vivacit-E Kn Ant Stab Implanted:Qty: 1 on 10/18/2023 by Aaron Rodriguez MD at [facility] Right: Knee [employer] 07/10/2028 [id number] / / [id number] Procedures Procedure Name Priority Date/Time Associated Diagnosis [...] RDERABLES [facility] [place] [address] * (ABNORMAL) COMPREHENSIVE METABOLIC PANEL (08/23/2023 9:35 AM CDT) Glucose 106(H) 70 - 105 mg/dL 08/23/2023 10:01 AM CDT [facility] Sodium 142 136 - 145 mmol/L 08/23/2023 10:01 AM CDT [facility] Potassium 4.4 3.5 - 5.1 mmol/L 08/23/2023 10:01 AM CDT [facility] Chloride 106 98 - 107 mmol/L 08/23/2023 10:01 AM CDT [facility] CO2 25 22 - 29 mmol/L 08/23/2023 10:01 AM CDT [facility] Calcium 10.2 8.4 - 10.4 mg/dL 08/23/2023 10:01 AM CDT [facility] Anion Gap 11 6 - 16 mmol/L 08/23/2023 10:01 AM CDT [facility] BUN 16 7 - 26 mg/dL 08/23/2023 10:01 AM CDT [facility] Creatinine 0.76 0.57 - 1.11 mg/dL 08/23/2023 10:01 AM CDT [facility] Alkaline Phosphatase 98 40 - 150 U/L 08/23/2023 10:01 AM CDT [facility] ALT 23 0 - 55 U/L 08/23/2023 10:01 AM CDT [facility] AST 23 5 - 34 U/L 08/23/2023 10:01 AM CDT [facility] Protein Total 7.2 6.4 - 8.3 gm/dL 08/23/2023 10:01 AM CDT [facility] Albumin 4.0 3.4 - 5.0 gm/dL 08/23/2023 10:01 AM CDT [facility] Bilirubin Total 0.8 0.2 - 1.2 mg/dL 08/23/2023 10:01 AM T [facility] eGFR by CKD-EPI >90 >=90 mL/min/1.7 3 m2 08/23/2023 10:01 AM T [facility] Blood BLOOD SPECIMEN / Unknown Venipuncture / Unknown 08/23/2023 9:35 AM CDT 08/23/2023 9:43 AM CDT [place]oke [place] ACOUSTICAL [employer]LE [employer] SUPERVISOR-UTILIZATION SUPERVISOR LAB - CHEMISTRY O RDERABLES Performing Organization Address City/State/[facility] Co de Phone Number [facility] [address] [place] [address] from Last 3 Months or Most Recently Relevant to Health Maintenance Advance Directives * Full Code (Latest Code Status on File) Date Activated Date Inactivated Comments 10/18/2023 12:40 PM 10/19/2023 2:00 PM Care Teams Clinical Resource Nurse Relationship Specialty Start Date End Date Jhonny Brennan DO [address] [place] [address] PCP - General Family Medicine 04/13/23
--- OUTSIDE RECORDS SUMMARY | 2024-02-20 23:25 | XMS_ITS | Encounter Summary ---
Author Organization [facility] Address [address] [place] [address] Care Team Providers Care Referral Specialist Name Role Phone Jhonny Brennan DO Primary Care Provider Reason for Visit * Reason Onset Date Comments Patient Requested Call 01/14/2024 Patient c alled in to ask if she is cleared to have scuba diving lessons. She needs an answer within 48 hours Encounter Details Date Type Department Care Team (Late st Contact Info) Description 01/14/2024 Telephone [facility] Orthopedics [id number] [place] [phone] [place] [address] [address] Patient Requested Call (Patient called in to ask if she is cleared to have scuba diving lessons. She needs an answer within 48 hours) Social History Tobacco Use Types Packs/Day Years [...] * Telephone Encounter - Eleanor Fam - 01/14/2024 8:44 AM CST Called patient back to let her know that is fine ORING OIL FILTERER * Telephone Encounter - Avery Bae MA - 01/14/2024 8:12 AM FLAVORING OIL FILTERER Patient called in to ask if she is cleared to have scuba diving lessons. She needs an answer hours ORING OIL FILTERER documented in this encounter Plan of Treatment Not on file documented as of this encounter Visit Diagnoses Not on filedocumented in this encounter Care Teams Referral Specialist Relationship Specialty Start Date End Date Jhonny Brennan DO [address] [place] [address] PCP - General Family Medicine 04/13/23 documented as of this encounter
--- OUTSIDE RECORDS SUMMARY | 2024-02-20 23:25 | XMS_ITS | Encounter Summary ---
Author Organization [facility] Address [address] [place] [address] Care Team Providers Care Aquarium Tank Attendant Name Role Phone Jhonny Brennan DO Primary Care Provider Reason for Visit * Reason Comments Post-Op Post op - Rt KneeR T BETZAIDA 10-18-23 3 weeks out Encounter Details Date Type Department Care Team (Late st Contact Info) Description 11/09/2023 12:00 PM CDT Office Visit [facility] Orthopedics [address] [place] [phone] [place] [address] [address] Aftercare following right knee joint [...] as of this encounter Progress Notes * Jarett Graves MA - 11/09/2023 11:49 AM CDT Chief Complaint Patient presents with Post-Op Post op - Rt Knee R TKA 10-18-23 3 weeks out documented in this encounter H&P Notes * Aaron Rodriguez MD - 11/15/2023 4:22 AM CDT DATE OF SERVICE: 11/09/2023 HISTORY: Alka Phillips is 3 weeks out from right total knee arthroplasty. EXAMINATION: Her incision is healing. She has no evidence of infection. She has full passive extension. Her flexion is to only 80 degrees. TREATMENT: We discussed a home exercise program involving leaning into the knee and doing this several times a day for a short period of time. She is going to focus on her flexion and we are going to see her back for routine followup and x-ray in 3 weeks. Aaron Rodriguez M.D. WCS/MedQ #: [id number] documented in this encounter Plan of Treatment Not on file documented as of this encounter Visit Diagnoses Diagnosis Aftercare following right knee joint replacement surgery- Primary documented in this encounter Care Teams Aquarium Tank Attendant Relationship Specialty Start Date End Date Jhonny Brennan DO [address] [place], [place] [id number] PCP - General Family Medicine 04/13/23 documented as of this encounter
--- OUTSIDE RECORDS SUMMARY | 2024-02-20 23:25 | XMS_ITS | Encounter Summary ---
Author Organization [facility] Address [address] [facility] [place] [address] Care Team Providers Care Zigzag Appliquer Name Role Phone Jhonny Brennan DO Primary Care Provider [phone] Reason for Visit * Reason Comments Establish Care New patient, clarenceater al knee pain Encounter Details Date Type Department Care Team (Latest Contact Info) Description 04/13/2023 1:10 PM CASH REGISTER SERVICER Office Visit [facility] Orthopedics [address] [place] [phone] [place] [address] [address] Primary osteoarthritis of right knee (Primary Dx); Pain in both knees, unspecified chronicity Social History Tobacco Use Types Packs/Day Years Used Date Smoking Tobacco: Never Smokeless Tobacco: Never Tobacco Cessation:Counseling Given: Not Answered Sex and Gender Information Value Date Recorded Sex Assigned at Not on file Gender Identity Not on file Sexual Orientation Not on file documented as of this encounter Last Filed Vital Signs Vital Sign Reading Time Taken Comments Blood Pressure - - Pulse - - Temperature - - Respiratory Rate - - Oxygen Saturation - - Inhaled Oxygen Concentration - - Weight 65.8 kg (145 lb) 04/13/2023 2:28 PM CASH REGISTER SERVICER Height 160 cm (5' 3 ) 04/13/2023 2:28 PM CASH REGISTER SERVICER Body Mass Index 25.69 04/13/2023 2:28 PM CASH REGISTER SERVICER documented in this encounter Progress Notes * Eleanor Fam - 04/13/2023 2:28 PM CST New patient, bilateral knee pain REGISTER SERVICER documented in this encounter H&P Notes * Aaron Rodriguez MD - 04/18/2023 6:07 PM CST DATE OF SERVICE: 04/13/2023 HISTORY: Maxine Phillips presents to the office today. This is a 58-year-old woman with increasing bilateral right greater than left knee pain, increasingly severe for the past several years. She has had previous corticosteroid injection and anti-inflammatory medication. She believes she is failing conservative management and presents interested in discussing knee replacement surgery. She is not currently on any medications. She has no previous surgeries. She has no known drug allergies. OBJECTIVE: She is 5 feet 3 inches, 145 pounds. She has pain-free range of motion of both hips. She has varus alignment, varus instability, primarily instability in the right knee. RADIOGRAPHS: X-rays demonstrate [id number] changes of the medial joint line of the right knee with some early erosive changes. ASSESSMENT AND PLAN: The patient is failing conservative management, would like to proceed with a right total knee arthroplasty. We discussed the nature of surgery and the most likely postoperative rehab, the perioperative risks and benefits. Aaron Rodriguez M.D. WCS/MedQ #: [id number] REGISTER SERVICER documented in this encounter Plan of Treatment Not on file documented as of this encounter Results * XR KNEE BILAT 3VW (04/13/2023 2:48 PM CASH REGISTER SERVICER) Narrative [facility] [address] - 04/13/2023 2:48 PM CASH REGISTER SERVICER Please see progress note in Epic for results. Aaron Rodriguez MD DIAGNOSTIC IMAGING O RDERABLES [facility] [address] documented in this encounter Visit Diagnoses Diagnosis Primary osteoarthritis of right knee- Primary Primary localized osteoarthrosis, lower leg Pain in both knees, unspecified chronicity Pain in both knees, unspecified chronicity documented in this encounter Care Teams Zigzag Appliquer Relationship Specialty Start Date End Date Jhonny Brennan DO [address] [place] [address] PCP - General Family Medicine 04/13/23 documented as of this encounter
--- OUTSIDE RECORDS SUMMARY | 2024-02-20 23:25 | XMS_ITS | Encounter Summary ---
Author Organization [facility] Address [address] [facility] [place] [address] Care Team Providers Care Manager Intern Name Role Phone Jhonny Brennan DO Primary Care Provider [phone] Reason for Visit * Reason Comments Post-Op PO: Rt TKA dos: 10/17 Encounter Details Date Type Department Care Team (Late st Contact Info) Description 12/28/2023 12:30 PM CDT Office Visit [facility] Orthopedics [address] [place] [phone] [place] [address] [address] Aftercare following right knee joint [...] as of this encounter Progress Notes * Yelena Head [facility] Pricing Consultant - 12/28/2023 12:21 PM CDT Chief Complaint Patient presents with Post-Op PO: Rt TKA dos: 10/18/23 ATING ROOM TECH documented in this encounter H&P Notes * Aaron Rodriguez MD - 12/30/2023 3:05 AM CDT DATE OF SERVICE: 12/28/2023 HISTORY: Alka Phillips is about 9 weeks out from right total knee arthroplasty. She has been involved in formal therapy and has made improvements in her range of motion. TREATMENT: She is well-versed on a home exercise program and is going to continue these exercises. We are going to see her back in the office on a p.r.n. basis. Aaron Rodriguez M.D. WCS/MedQ #: [id number] documented in this encounter Plan of Treatment Not on file documented as of this encounter Visit Diagnoses Diagnosis Aftercare following right knee joint replacement surgery- Primary documented in this encounter Care Teams Manager Intern Relationship Specialty Start Date End Date Jhonny Brennan DO [address] [place], [place] [id number] PCP - General Family Medicine 04/13/23 documented as of this encounter
--- OUTSIDE RECORDS SUMMARY | 2024-02-20 23:25 | XMS_ITS | Encounter Summary ---
Author Organization [facility] Address [address] [facility] [place] [address] Care Team Providers Care Circuit Judge Name Role Phone Jhonny Brennan DO Primary Care Provider [phone] Reason for Referral * Evaluate - Pending Review Specialty Diagnoses / Procedures Referred By Jorge grider Referred To Contact Diagnoses Status post total right knee replacement Sal Parker [facility]-C [address] [facility] [facility] [address] [place] [phone] Referral ID Status Reason Start Date Expiration Date Visits Requested Visits Authorized [id number] Pending Review Specialty Services Required 12/07/2023 12/06/2024 6 6 Scheduling Instructions S/P right tka with stiffness Motion stretches modalities and HEP 6 visits Reason for Visit * Reason Onset Date Comments Patient Requested Call 12/06/2023 pt called in to report that she does not feel like her surgical knee is progressing she still has severe stiffness. She will like a call back with suggestions for symptom relief. Encounter Details Date Type Department Care Team (Late st Contact Info) Description 12/06/2023 Telephone [email or web address] [id number] [place], [place] [address], [address] [place] [phone] [place] [id number] [address] [facility] [address] [place] [address] Patient Requested Call (pt called in to report that she does not feel like her surgical knee is progressing she still has severe stiffness. She will like a call back with suggestions for symptom relief.) Social History Tobacco Use Types Packs/Day Years [...] * Telephone Encounter - Eleanor Fam - 12/13/2023 3:37 PM CDT Called patient back and scheduled her to see [facility] on 12/27 * Telephone Encounter - Avery Bae MA - 12/06/2023 2:43 PM CDT pt called in to report that she does not feel like her surgical knee is progressing she still has severe stiffness. She will like a call back with suggestions for symptom relief. documented in this encounter Plan of Treatment Scheduled Referrals Name Type Priority Associated Diagnoses Orde r Schedule AMB REFERRAL TO PHYSICAL THERAPY Outpatient Referral Routine Status post total right knee replacement Ordered: 12/07/2023 documented as of this encounter Visit Diagnoses Diagnosis Status post total right knee replacement- Primary documented in this encounter Care Teams Circuit Judge Relationship Specialty Start Date End Date Jhonny Brennan DO [address] [place] [address] PCP - General Family Medicine 04/13/23 documented as of this encounter
--- OUTSIDE RECORDS SUMMARY | 2024-02-20 23:25 | XMS_ITS | Encounter Summary ---
Author Organization [facility] Address [address] [place] [address] Care Team Providers Care Airline Reservationist Name Role Phone Libertadlulu Jhonny PINA Primary Care Provider [phone] Reason for Visit * Reason Onset Date Comments Patient Requested Call 11/08/2023 Yuliya mcgill [facility] called in regards to unsigned orders for this patient and several others. Yuliya stated that she has faxed over a total of 33 pages and she is waiting on them to be signed and faxed back to her. Encounter Details Date Type Department Care Team (Late st Contact Info) Description 11/08/2023 Telephone [facility] Orthopedics [address] [place] [phone] [place] [address] [address] Patient Requested Call (Yuliya roldan [facility] called in regards to unsigned orders for this patient and several others. Yuliya stated that she has faxed over a total of 33 pages and she is waiting on them to be signed and faxed back to her.) Social History Tobacco Use Types Packs/Day Years [...] Telephone Encounter - Dina Serrano MA - 11/08/2023 2:16 PM CDT Everything we have for her and other patients was faxed back this afternoon. * Telephone Encounter - Avery Bae MA - 11/08/2023 11:44 AM CDT Yuliya with [facility] called in regards to unsigned orders for this patient and severalothers. Yuliya stated that she has faxed over a total of 33 pages and she is waiting on them to besigned and faxed back to her. documented in this encounter Plan of Treatment Not on file documented as of this encounter Visit Diagnoses Not on filedocumented in this encounter Care Teams Airline Reservationist Relationship Specialty Start Date End Date Jhonny Brennan DO [address] [place] [address] PCP - General Family Medicine 04/13/23 documented as of this encounter
--- OUTSIDE RECORDS SUMMARY | 2024-02-20 23:25 | XMS_ITS | Encounter Summary ---
Author Organization [facility] Address [address] [facility] [place] [address] Care Team Providers Care Business Division Chair Name Role Phone LibertadluluRosaliash Primary Care Provider [phone] Reason for Visit * Reason Onset Date Comments ECG 08/24/2023 Encounter Details Date Type Department Care Team (Late st Contact Info) Description 08/24/2023 Telephone [facility] [address] [place] [address] [address] [place] [address] Genet Burroughs RN ECG Social History Tobacco Use Types Packs/Day Years [...] encounter Miscellaneous Notes * Telephone Encounter - Genet Burroughs RN - 08/24/2023 10:38 AM CDT ----- Message from Steve Hernandez MD sent at 08/24/2023 7:59 AM CDT ----- Regarding: RE: Abnormal EKG ok ----- Message ----- From: Meliza Wilhelm, ERIN Sent: 08/23/2023 2:58 PM CDT To: [facility] Pat Optimization Nurse Pool; # Subject: Abnormal EKG Please review abnormal EKG and reply once reviewed. History: none Prior Testin PCP Clearance: 0 Cardiac Clearance: 0 Was patient instructed to get PCP clearance at SEC visit? No documented in this encounter Plan of Treatment Not on file documented as of this encounter Visit Diagnoses Not on filedocumented in this encounter Care Teams Business Division Chair Relationship Specialty Start Date End Date Jhonny Brennan DO [address] [place] [address] PCP - General Family Medicine 04/13/23 documented as of this encounter
--- OUTSIDE RECORDS SUMMARY | 2024-02-20 23:26 | XMS_ITS | Encounter Summary ---
Author Organization [facility] Address [address] [place] [address]. [place] [address] [place] [address] Care Team Providers Care Mountain Or Glacier Guide Name Role Phone Azeem Shah MD Primary Care Provider [phone] Encounter Details Date Type Department Care Team (Late st Contact Info) Description 08/23/2018 Orders Only [facility] [address] [place] [address] Duke Mccauley MD Social History Tobacco Use Types Packs/Day Years Used Date Smoking Tobacco: Never Assessed Comments Unknown Sex and Gender Information Value Date Recorded Sex Assigned at Not on file Legal Sex Female 5:55 PM OCCUPATIONAL THERAPY DEPARTMENT CHAIR Gender Identity Not on file Sexual Orientation Not on file documented as of this encounter Plan of Treatment Not on file documented as of this encounter Results * HEPATIC FUNCTION PANEL (08/23/2018 10:42 AM CDT) BILIRUBIN TOTAL S/P/B 0.6 0.2 - 1.0 MG/DL 08/23/2018 11:45 AM CDT [facility] BILIRUBIN DIRECT S/P/B 0.1 0.0 - 0.2 MG/DL 08/23/2018 11:45 AM CDT [facility] ALKALINE PHOSPHATASE S/P/B 98 41 - 108 U/L 08/23/2018 11:45 AM CDT [facility] AST 22 15 - 37 U/L 08/23/2018 11:45 AM CDT [facility] ALT 34 14 - 59 U/L 08/23/2018 11:45 AM CDT [facility] TOTAL PROTEIN S/P/B 7.5 6.4 - 8.2 G/DL 08/23/2018 11:45 AM CDT [facility] ALBUMIN S/P/B 4.0 3.4 - 5.0 G/DL 08/23/2018 11:45 AM CDT [facility] 08/23/2018 10:4 2 AM CDT us Duke Mccauley MD LABORATORY Final Result [facility] [address] [place] [id number], * (ABNORMAL) CBC W/DIFF AUTOMATED (08/23/2018 10:42 AM CDT) WBC 7.3 4.5 - 10.8 x10'3/uL 08/23/2018 11:35 AM CDT [facility] RBC 3.89(L) 4.10 - 5.40 x10'6/uL 08/23/2018 11:35 AM CDT [facility] HGB 12.6 12.0 - 16.0 G/DL 08/23/2018 11:35 AM CDT [facility] HCT 37.8 36.0 - 47.0 % 08/23/2018 11:35 AM CDT [facility] MCV 97.2 78.0 - 100.0 FL 08/23/2018 11:35 AM CDT [facility] MCH 32.4(H) 27.0 - 31.0 PG 08/23/2018 11:35 AM CDT [facility] MCHC 33.3 33.0 - 36.0 G/DL 08/23/2018 11:35 AM CDT [facility] RDW 13.1 11.5 - 14.5 % 08/23/2018 11:35 AM CDT [facility] PLT 241 150 - 350 x10'3/uL 08/23/2018 11:35 AM CDT [facility] MPV 10.0 7.4 - 10.4 FL 08/23/2018 11:35 AM CDT [facility] DIFFERENTIAL COMMENT NORMAL REFERENCE RANGE NOT ESTABLISHED FOR THE PROPORTIONAL LEUKOCYTE DIFFERENTIAL. 08/23/2018 11:35 AM CDT [facility] SEG NEUTROPHILS 69.0 % 9 11:35 AM CDT [facility] LYMPHOCYTES 21.8 % 08/23/2018 11:35 AM CDT [facility] MONOCYTES 7.3 % 08/23/2018 11:35 AM CDT [facility] EOSINOPHILS 1.1 % 08/23/2018 11:35 AM CDT [facility] BASOPHILS 0.5 % 08/23/2018 11:35 AM CDT [facility] IMMATURE GRANS % 0.3 % 08/24/19 19 11:35 AM CDT [facility] NRBC 0.0 % 08/23/2018 11:35 AM CDT [facility] ABS. NEUTROPHILS 5.04 1.60 - 8.30 x10'3/uL 08/23/2018 11:35 AM CDT [facility] ABS. LYMPHOCYTES 1.59 0.80 - 4.70 x10'3/uL 08/23/2018 11:35 AM CDT [facility] ABS. MONOCYTES 0.53 0.00 - 1.50 x10'3/uL 08/23/2018 11:35 AM CDT [facility] ABS. EOSINOPHILS 0.08 0.00 - 0.40 x10'3/uL 08/23/2018 11:35 AM CDT [facility] ABS. BASOPHILS 0.04 0.00 - 0.20 x10'3/uL 08/23/2018 11:35 AM CDT [facility] ABS. IMMATURE GRANULOCYTES 0.02 0.00 - 0.03 x10'3/uL 08/23/2018 11:35 AM CDT [facility] ABS. NUCLEATED RBC'S 0.00 0.00 x10'3/uL 08/23/2018 11:35 AM CDT [facility] 08/23/2018 10:4 2 AM CDT us Duke Mccauley MD LABORATORY Final Result [facility] [address] [place] [address], [place] [phone] * PROTEIN, ELECTROPHORESIS (08/23/2018 10:42 AM CDT) TOTAL PROTEIN (ELECTROPHORESIS SERUM) 7.1 6.0 - 8.3 G/DL 08/25/2018 12:30 PM CDT [facility] ALBUMIN ELECTROPHORESIS S/P/B 4.5 3.4 - 4.9 G/DL 08/25/2018 12:26 PM CDT [facility] [id number] CSF 0.3 0.2 - 0.4 G/DL 08/25/2018 12:26 PM CDT [facility] OUIEE-2-NAAAYQTH S/P/B 0.7 0.4 - 1.0 G/DL 08/25/2018 12:26 PM CDT [facility] BETA GLOBULIN S/P/B 0.8 0.5 - 1.2 G/DL 08/25/2018 12:26 PM CDT [facility] GAMMA GLOBULIN S/P/B 0.9 0.6 - 1.6 G/DL 08/25/2018 12:26 PM CDT [facility] ELECTROPHORESIS INTERPRETATION THIS SERUM PEP WAS INTERPRETED BY 08/26/2018 6:45 PM CDT [facility] Comment: DR DILCIA VILLEGAS MD THE TOTAL SERUM PROTEIN IS NORMAL. ELECTROPHORESIS IDENTIFIES NO QUANTITATIVE ABNORMALITIES WITHIN THE PROTEIN FRACTIONS. MONOCLONAL PROTEINS ARE NOT DETECTED. 08/23/2018 10:4 2 AM CDT us Duke Mccauley MD LABORATORY Final Result [facility] [address] [place] [address], [place] [phone] * HEPATITIS C ANTIBODY (08/23/2018 10:42 AM CDT) Pathologist [facility] HEPATITIS C AB NON-REACTI VE NON-REACT MINGO 08/24/2018 2:44 PM CDT [facility] Comment: ANTIBODIES TO HCV NOT DETECTED. DOES NOT EXCLUDE THE POSSIBILITY OF EXPOSURE TO HCV. 08/23/2018 10:4 2 AM CDT us Duke Mccauley MD LABORATORY Final Result Performing Organization Address [facility] Co de Phone Number [facility] [address] [place] [address], [place] [phone] * HEPATITIS B SURFACE AG, EIA (08/23/2018 10:42 AM CDT) Pathologist [facility] [place] HEPATITIS B SURFACE AG NON-REACTI VE NON-REACTI VE 08/24/2018 2:44 PM CDT [facility] Comment:HBsAg NOT DETECTED. 08/23/2018 10:4 2 AM CDT us Duke Mccauley MD LABORATORY Final Result Performing Organization Address [facility] de Phone Number [facility] [address] [place] [address], [place] [phone] * TBGOLD-TUBERCULOSIS TST CELL MEDIATED IMMUNITY (08/23/2018 10:42 AM CDT) Pathologist [facility] TB INTERPRETATION NEGATIVE 019 12:54 PM CDT [facility] Comment:NEGATIVE: No immune response to Mycobacterium tuberculosis noted. TB1 AG MINUS NIL 0.01 IU/ML 08/26/19 19 12:54 PM CDT [facility] TB2 AG MINUS NIL 0.01 IU/ML 08/26/19 19 12:54 PM CDT [facility] Comment: This test was automated and its characteristics determined by the [facility]. Automated versions of this test have not been cleared or approved by the FDA. This laboratory is regulated under CLIA as qualified to perform high complexity testing. This test is used for clinical purposes. It should not be regarded as investigational or for research. 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
--- OUTSIDE RECORDS SUMMARY | 2024-02-20 23:26 | XMS_ITS | Encounter Summary ---
Author Organization [facility] Address [address] [place] [address]. [place] [address] [place] [address] Care Team Providers Care Stock Lifter Name Role Phone Unavailable Primary Care Provider Unavailabl e Encounter Details Date Type Department Care Team (Late st Contact Info) Description 03/31/2005 Abstract [facility] [address] [place] [address] Azeem Shah MD [address] [place] [address] Social History Tobacco Use Types Packs/Day Years Used Date Smoking Tobacco: Never Assessed Comments Unknown Sex and Gender Information Value Date Recorded Sex Assigned at Not on file Legal Sex Female 5:55 PM COVERAGE ANALYST Gender Identity Not on file Sexual Orientation Not on file documented as of this encounter Plan of Treatment Not on file documented as of this encounter Visit Diagnoses Not on filedocumented in this encounter
--- OUTSIDE RECORDS SUMMARY | 2024-02-20 23:26 | XMS_ITS | Encounter Summary ---
Author Organization [facility] Address [address] [place] [address]. [place] [address] [place] [address] Care Team Providers Care Derrick Hand Name Role Phone Unavailable Primary Care Provider Unavailabl e Encounter Details Date Type Department Care Team (Late st Contact Info) Description 07/08/2017 Abstract [facility] [address] [place] [address] Azeem Shah MD [address] [place] [address] Social History Tobacco Use Types Packs/Day Years Used Date Smoking Tobacco: Never Assessed Comments Unknown Sex and Gender Information Value Date Recorded Sex Assigned at Not on file Legal Sex Female 5:55 PM COMPUTER INFORMATION SCIENCE PROFESSOR Gender Identity Not on file Sexual Orientation Not on file documented as of this encounter Plan of Treatment Not on file documented as of this encounter Visit Diagnoses Diagnosis Encounter for screening mammogram for malignant neoplasm of breast Other screening mammogram documented in this encounter
--- OUTSIDE RECORDS SUMMARY | 2024-02-20 23:26 | XMS_ITS | Encounter Summary ---
Author Organization [facility] Address [address] [place] [address]. [place] [address] [place] [address] Care Team Providers Care Client Service And Consulting Manager Name Role Phone Unavailable Primary Care Provider Unavailabl e Encounter Details Date Type Department Care Team (Late st Contact Info) Description 07/22/[address] [facility] [address] [place] [address] Azeem Shah MD [address] [place] [address] Social History Tobacco Use Types Packs/Day Years Used Date Smoking Tobacco: Never Assessed Comments Unknown Sex and Gender Information Value Date Recorded Sex Assigned at Not on file Legal Sex Female 5:55 PM SENIOR PYTHON DEVELOPER Gender Identity Not on file Sexual Orientation Not on file documented as of this encounter Plan of Treatment Not on file documented as of this encounter Visit Diagnoses Diagnosis Pain in joint, shoulder region documented in this encounter
--- OUTSIDE RECORDS SUMMARY | 2024-02-20 23:26 | XMS_ITS | Encounter Summary ---
Author Organization [facility] Address [facility]. [place], [place] [address] [place] [address] Care Team Providers Care Solutions Specialist Name Role Phone Unavailable Primary Care Provider Unavailabl e Encounter Details Date Type Department Care Team (Late st Contact Info) Description 06/14/2009 Abstract [facility] [address] [place] [address] Kenneth Hernandez MD [address] [place], [place] [id number] Social History Tobacco Use Types Packs/Day Years Used Date Smoking Tobacco: Never Assessed Comments Unknown Sex and Gender Information Value Date Recorded Sex Assigned at Not on file Legal Sex Female 5:55 PM REPAIR MECHANIC Gender Identity Not on file Sexual Orientation Not on file documented as of this encounter Plan of Treatment Not on file documented as of this encounter Visit Diagnoses Diagnosis Low back pain Lumbago documented in this encounter
--- OUTSIDE RECORDS SUMMARY | 2024-02-20 23:26 | XMS_ITS | Encounter Summary ---
Author Organization [facility] Address [address] [place] [address]. 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
--- OUTSIDE RECORDS SUMMARY | 2024-02-20 23:26 | XMS_ITS | Encounter Summary ---
Author Organization [facility] Address [address] [place] [address]. [place] [address] [place] [address] Care Team Providers Care Underwear Trimmer Name Role Phone Azeem Shah MD Primary Care Provider [phone] Encounter Details Date Type Department Care Team (Latest Contact Info) Description 12/24/2020 9:45 AM CDT - 12/24/2020 11:59 PM CDT Hospital Encounter [facility] [address] [place] [address] Duke Mccauley MD Discharge Disposition: Home or Self Care (Routine Discharge) Social History Tobacco Use Types Packs/Day Years Used Date Smoking Tobacco: Never Assessed Comments Unknown Sex and Gender Information Value Date Recorded Sex Assigned at Not on file 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 No / Unsure 12/24/2020 9:50 AM CDT documented as of this encounter Plan of Treatment Not on file documented as of this encounter Procedures Procedure Name Priority Date/Time Associated Diagnosis Comments HC URINALYSIS AUTO W/MICRO Routine 12/24/2020 10:10 AM CDT Rheumatoid arthritis, unspecified ([facility]/HCC) RHEUMATOID FACTOR, QUANT Routine 12/24/2020 10:07 AM CDT Rheumatoid arthritis, unspecified ([facility]/HCC) COMPREHENSIVE METABOLIC PANEL Routine 12/24/2020 10:07 AM CDT Rheumatoid arthritis, unspecified ([facility]) CBC W/DIFF AUTOMATED Routine 12/24/2020 10:07 AM CDT Rheumatoid arthritis, unspecified ([facility]) documented in this encounter Results * URINALYSIS (12/24/2020 10:10 AM CDT) COLOR (U) YELLOW 12/24/2020 10:[address] [facility] TRANSPARENCY CLEAR 12/24/2020 10:[address] [facility] SPECIFIC GRAVITY (U) 1.025 1.000 - 1.025 12/24/2020 10:[address] [facility] U PH 6.0 5.0 - 8.0 12/24/2020 10:[address] [facility] LEUKOCYTES (U) NEGATIVE NEGATIVE 12/24/2020 10:[address] [facility] NITRITES NEGATIVE NEGATIVE 12/24/2020 10:[address] [facility] PROTEIN (U) NEGATIVE NEGATIVE 12/24/2020 10:[address] [facility] URINE GLUCOSE NEGATIVE NEGATIVE 12/24/2020 10:[address] [facility] KETONES MG/DL (U) NEGATIVE NEGATIVE 12/24/2020 10:[address] [facility] UROBILINOGEN 0.2 <1.0 EU/DL 12/24/2020 10:[address] [facility] BILIRUBIN (U) NEGATIVE NEGATIVE 12/24/2020 10:[address] [facility] BLOOD (U) NEGATIVE NEGATIVE 12/24/2020 10:[address] [facility] WBC/HPF 0-5 0 - 5 /HPF 12/24/2020 10:[address] [facility] EPI/HPF OCCASIONAL /LPF 12/24/2020 10:[address] [facility] OTHER CASTS (U) HYALINE /LPF 10/26/202 1 10:[address] [facility] Comment:RARE URINE SPECIMEN OBTAINED BY CLEAN CATCH PROCEDURE / Unknown 12/24/2020 10:10 AM CDT us Duke Mccauley MD URINE ORDERABLES Final Result Performing Organization Address City/[facility]/ZIP Co de Phone Number [facility] [address] [place] [address], [place] [phone] * (ABNORMAL) RHEUMATOID FACTOR, QUANT (12/24/2020 10:07 AM CDT) RHEUMATOID FACTOR 126(H) <15 IU/ML 12/25/2020 12:[address] [facility] 12/24/2020 10:0 7 AM CDT us Duke Mccauley MD LABORATORY Final Result Performing Organization Address [facility] de Phone Number [facility] [address] [place] [address], [place] [phone] * (ABNORMAL) COMPREHENSIVE METABOLIC PANEL (12/24/2020 10:07 AM CDT) SODIUM S/P/B 141 136 - 145 MMOL/L 12/24/2020 10:[address] [facility] POTASSIUM S/P/B 4.0 3.5 - 5.1 MMOL/L 12/24/2020 10:[address] [facility] CHLORIDE S/P/B 102 98 - 107 MMOL/L 12/24/2020 10:[address] [facility] CO2 25.9 21.0 - 32.0 MMOL/L 12/24/2020 10:[address] [facility] GLUCOSE 93 70 - 99 MG/DL 12/24/2020 10:[address] [facility] Comment: FASTING GLUCOSE 100 TO 125 MG/DL IS CONSISTENT WITH IMPAIRED FASTING GLUCOSE. FASTING GLUCOSE >125 MG/DL IS CONSISTENT WITH DIABETES. RANDOM GLUCOSE >200 MG/DL WITH HYPERGLYCEMIC SYMPTOMS IS CONSISTENT WITH DIABETES. PER ADA GUIDELINES BUN 17 6 - 24 MG/DL 12/24/2020 10:[address] [facility] CREATININE S/P/B 0.62 0.55 - 1.02 MG/DL 12/24/2020 10:[address] [facility] CALCIUM S/P/B 9.7 8.4 - 10.5 MG/DL 12/24/2020 10:[address] [facility] BILIRUBIN TOTAL S/P/B 0.7 0.2 - 1.0 MG/DL 12/24/2020 10:[address] [facility] Comment: THIS ASSAY IS NOT RECOMMENDED FOR PATIENTS UNDERGOING TREATMENT WITH ELTROMBOPAG DUE TO THE POTENTIAL FOR FALSELY ELEVATED RESULTS. ALKALINE PHOSPHATASE S/P/B 125(H) 41 - 108 U/L 12/24/2020 10:[address] [facility] AST 23 15 - 37 U/L 12/24/2020 10:[address] [facility] ALT 32 14 - 59 U/L 12/24/2020 10:[address] [facility] TOTAL PROTEIN S/P/B 7.8 6.4 - 8.2 G/DL 12/24/2020 10:[address] [facility] ALBUMIN S/P/B 4.3 3.4 - 5.0 G/DL 12/24/2020 10:[address] [facility] ANION GAP 13.1 5.0 - 15.0 MMOL/L 12/24/2020 10:50 AM [facility] OSMOLALITY (CALC) 293 MOSM/KG 021 10:[address] [facility] Comment:REFERENCE RANGE NOT ESTABLISHED EGFR NON-AFR. AMER. >90 >89 ML/MIN/1. 73 M2 12/24/2020 10:[address] [facility] EGFR AFR. AMER. >90 >89 ML/MIN/1. 73 M2 12/24/2020 10:[address] [facility] GFR NOTES GFR REFERENCE S: 12/24/2020 10:[address] [facility] Comment: THE ESTIMATED GFR IS CALCULATED USING THE 2009 CKD-EPI EQUATION. THE FOLLOWING CATEGORIES FOR GRADING RENAL FUNCTION ARE RECOMMENDED BY THE INTERNATIONAL SOCIETY OF NEPHROLOGY (KDIGO 2012 CLINICAL PRACTICE GUIDELINE). G1,NORMAL OR HIGH: >89 ml/min/1.73 m2 G2,MILDLY DECREASED: 60-89 ml/min/1.73 m2 G3A,MILDLY TO MODERATELY DECREASED: 45-59 ml/min/1.73 m2 G3B,MODERATELY TO SEVERELY DECREASED: 30-44 ml/min/1.73 m2 G4,SEVERELY DECREASED: 15-29 ml/min/1.73 m2 G5,KIDNEY FAILURE: <15 ml/min/1.73 m2 12/24/2020 10:0 7 AM CDT us Duke Mccauley MD LABORATORY Final Result [facility] [address] [place] [address], * (ABNORMAL) CBC W/DIFF AUTOMATED (12/24/2020 10:07 AM CDT) WBC 6.6 4.0 - 10.8 x10'3/uL 12/24/2020 10:[address] [facility] RBC 4.07(L) 4.10 - 5.40 x10'6/uL 12/24/2020 10:[address] [facility] HGB 12.6 12.0 - 16.0 G/DL 12/24/2020 10:[address] [facility] HCT 39.8 36.0 - 47.0 % 12/24/2020 10:[address] [facility] MCV 97.8 78.0 - 100.0 FL 12/24/2020 10:[address] [facility] MCH 31.0 27.0 - 31.0 PG 12/24/2020 10:[address] [facility] MCHC 31.7(L) 33.0 - 36.0 G/DL 12/24/2020 10:[address] [facility] RDW 12.9 11.5 - 14.5 % 12/24/2020 10:[address] [facility] PLT 257 150 - 350 x10'3/uL 12/24/2020 10:[address] [facility] MPV 10.0 7.4 - 10.4 FL 12/24/2020 10:[address] [facility] DIFFERENTIAL COMMENT NORMAL REFERENCE RANGE NOT ESTABLISHED FOR THE PROPORTIONAL LEUKOCYTE DIFFERENTIAL. 12/24/2020 10:[address] [facility] SEG NEUTROPHILS 63.1 % 10:[address] [facility] LYMPHOCYTES 25.2 % 12/24/2020 10:[address] [facility] MONOCYTES 9.8 % 12/24/2020 10:[address] [facility] EOSINOPHILS 1.2 % 12/24/2020 10:[address] [facility] BASOPHILS 0.5 % 12/24/2020 10:[address] [facility] IMMATURE GRANS % 0.2 % 12/25/19 10:[address] [facility] NRBC 0.0 % 12/24/2020 10:[address] [facility] ABS. NEUTROPHILS 4.20 1.60 - 8.30 x10'3/uL 12/24/2020 10:[address] [facility] ABS. LYMPHOCYTES 1.67 0.80 - 4.70 x10'3/uL 12/24/2020 10:[address] [facility] ABS. MONOCYTES 0.65 0.00 - 1.50 x10'3/uL 12/24/2020 10:[address] [facility] ABS. EOSINOPHILS 0.08 0.00 - 0.40 x10'3/uL 12/24/2020 10:[address] [facility] ABS. BASOPHILS 0.03 0.00 - 0.20 x10'3/uL 12/24/2020 10:[address] [facility] ABS. IMMATURE GRANULOCYTES 0.01 0.00 - 0.03 x10'3/uL 12/24/2020 10:[address] [facility] ABS. NUCLEATED RBC'S 0.00 0.00 x10'3/uL 12/24/2020 10:[address] [facility] 12/24/2020 10:0 7 AM CDT us Duke Mccauley MD LABORATORY Final Result [facility] [address] [place] [address], documented in this encounter Visit Diagnoses Diagnosis Rheumatoid arthritis, unspecified (CMS/HCC HHS/HCC) documented in this encounter Care Teams Underwear Trimmer Relationship Specialty Start Date End Date Azeem Shah MD [address] [facility] [place] [id number] PCP - General FAMILY PRACTICE 08/23/18 documented as of this encounter
--- OUTSIDE RECORDS SUMMARY | 2024-02-20 23:26 | XMS_ITS | Encounter Summary ---
Author Organization [facility] Address [address] [place] [address]. 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
--- OUTSIDE RECORDS SUMMARY | 2024-02-20 23:26 | XMS_ITS | Encounter Summary ---
Author Organization [facility] Address [address] [place] [address]. 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
--- OUTSIDE RECORDS SUMMARY | 2024-02-20 23:26 | XMS_ITS | Encounter Summary ---
Author Organization [facility] Address [address] [place] [address]. 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
--- OUTSIDE RECORDS SUMMARY | 2024-02-20 23:26 | XMS_ITS | Encounter Summary ---
Author Organization [facility] Address [address] [place] [address]. 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
--- OUTSIDE RECORDS SUMMARY | 2024-02-20 23:26 | XMS_ITS | Encounter Summary ---
Author Organization [facility] Address [facility] [place] [address] [place] [address] Care Team Providers Care Maintenance Scheduler Name Role Phone Unavailable Primary Care Provider Unavailabl e Encounter Details Date Type Department Care Team (Late st Contact Info) Description 08/02/[address] 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
--- OUTSIDE RECORDS SUMMARY | 2024-02-20 23:26 | XMS_ITS | Encounter Summary ---
Author Organization [facility] Address [address] [place] [address]. 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
--- OUTSIDE RECORDS SUMMARY | 2024-02-20 23:26 | XMS_ITS | Encounter Summary ---
Author Organization [facility] Address [address] [place] [address]. 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
--- OUTSIDE RECORDS SUMMARY | 2024-02-20 23:26 | XMS_ITS | Encounter Summary ---
Author Organization [facility] Address [address] [place] [address]. 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
--- OUTSIDE RECORDS SUMMARY | 2024-02-20 23:26 | XMS_ITS | Encounter Summary ---
Author Organization [facility] Address [address] [place] [address]. 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
--- OUTSIDE RECORDS SUMMARY | 2024-02-20 23:26 | XMS_ITS | Encounter Summary ---
Author Organization [facility] Address [address] [place] [address]. 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
--- OUTSIDE RECORDS SUMMARY | 2024-02-20 23:26 | XMS_ITS | Encounter Summary ---
Author Organization [facility] Address [address] [place] [address]. 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 No / Unsure 12/24/2020 9:50 AM CDT documented as of this encounter Plan of Treatment Not on file documented as of this encounter Results * URINALYSIS (12/24/2020 10:10 AM CDT) COLOR (U) YELLOW 12/24/2020 10:30 AM CDT [facility] TRANSPARENCY CLEAR 12/24/2020 10:30 AM CDT [facility] SPECIFIC GRAVITY (U) 1.025 1.000 - 1.025 12/24/2020 10:30 AM CDT [facility] U PH 6.0 5.0 - 8.0 12/24/2020 10:30 AM CDT [facility] LEUKOCYTES (U) NEGATIVE NEGATIVE 12/24/2020 10:30 AM CDT [facility] NITRITES NEGATIVE NEGATIVE 12/24/2020 10:30 AM CDT [facility] PROTEIN (U) NEGATIVE NEGATIVE 12/24/2020 10:30 AM CDT [facility] URINE GLUCOSE NEGATIVE NEGATIVE 12/24/2020 10:30 AM CDT [facility] KETONES MG/DL (U) NEGATIVE NEGATIVE 12/24/2020 10:30 AM CDT [facility] UROBILINOGEN 0.2 <1.0 EU/DL 12/24/2020 10:30 AM CDT [facility] BILIRUBIN (U) NEGATIVE NEGATIVE 12/24/2020 10:30 AM CDT [facility] BLOOD (U) NEGATIVE NEGATIVE 12/24/2020 10:30 AM CDT [facility] WBC/HPF 0-5 0 - 5 /HPF 12/24/2020 10:30 AM CDT [facility] EPI/HPF OCCASIONAL /LPF 12/24/2020 10:30 AM CDT [facility] OTHER CASTS (U) HYALINE /LPF 10:30 AM CDT [facility] Comment:RARE URINE SPECIMEN OBTAINED BY CLEAN CATCH PROCEDURE / Unknown 12/24/2020 10:10 AM CDT us Duke Mccauley MD URINE ORDERABLES Final Result [facility] [address] [place] [address], * (ABNORMAL) RHEUMATOID FACTOR, QUANT (12/24/2020 10:07 AM CDT) RHEUMATOID FACTOR 126(H) <15 IU/ML 12/25/2020 12:21 PM CDT [facility] 12/24/2020 10:0 7 AM CDT us Duke Mccauley MD LABORATORY Final Result [facility] [address] [place] [address], [id number] * (ABNORMAL) COMPREHENSIVE METABOLIC PANEL (12/24/2020 10:07 AM CDT) SODIUM S/P/B 141 136 - 145 MMOL/L 12/24/2020 10:50 AM CDT [facility] POTASSIUM S/P/B 4.0 3.5 - 5.1 MMOL/L 12/24/2020 10:50 AM CDT [facility] CHLORIDE S/P/B 102 98 - 107 MMOL/L 12/24/2020 10:50 AM CDT [facility] CO2 25.9 21.0 - 32.0 MMOL/L 12/24/2020 10:50 AM CDT [facility] GLUCOSE 93 70 - 99 MG/DL 12/24/2020 10:50 AM CDT [facility] Comment: FASTING GLUCOSE 100 TO 125 MG/DL IS CONSISTENT WITH IMPAIRED FASTING GLUCOSE. FASTING GLUCOSE >125 MG/DL IS CONSISTENT WITH DIABETES. RANDOM GLUCOSE >200 MG/DL WITH HYPERGLYCEMIC SYMPTOMS IS CONSISTENT WITH DIABETES. PER ADA GUIDELINES BUN 17 6 - 24 MG/DL 12/24/2020 10:50 AM CDT [facility] CREATININE S/P/B 0.62 0.55 - 1.02 MG/DL 12/24/2020 10:50 AM CDT [facility] CALCIUM S/P/B 9.7 8.4 - 10.5 MG/DL 12/24/2020 10:50 AM CDT [facility] BILIRUBIN TOTAL S/P/B 0.7 0.2 - 1.0 MG/DL 12/24/2020 10:50 AM CDT [facility] Comment: THIS ASSAY IS NOT RECOMMENDED FOR PATIENTS UNDERGOING TREATMENT WITH ELTROMBOPAG DUE TO THE POTENTIAL FOR FALSELY ELEVATED RESULTS. ALKALINE PHOSPHATASE S/P/B 125(H) 41 - 108 U/L 12/24/2020 10:50 AM CDT [facility] AST 23 15 - 37 U/L 12/24/2020 10:50 AM CDT [facility] ALT 32 14 - 59 U/L 12/24/2020 10:50 AM CDT [facility] TOTAL PROTEIN S/P/B 7.8 6.4 - 8.2 G/DL 12/24/2020 10:50 AM CDT [facility] ALBUMIN S/P/B 4.3 3.4 - 5.0 G/DL 12/24/2020 10:50 AM CDT [facility] ANION GAP 13.1 5.0 - 15.0 MMOL/L 12/24/2020 10:50 AM CDT [facility] OSMOLALITY (CALC) 293 MOSM/KG 021 10:50 AM T [facility] Comment:REFERENCE RANGE NOT ESTABLISHED EGFR NON-AFR. AMER. >90 >89 ML/MIN/1. 73 M2 12/24/2020 10:50 AM CDT [facility] EGFR AFR. AMER. >90 >89 ML/MIN/1. 73 M2 12/24/2020 10:50 AM CDT [facility] GFR NOTES GFR REFERENCE S: 12/24/2020 10:50 AM T [facility] Comment: THE ESTIMATED GFR IS CALCULATED [...] us Duke Mccauley MD LABORATORY Final Result [facility] [address] [place] [address], * (ABNORMAL) CBC W/DIFF AUTOMATED (12/24/2020 10:07 AM CDT) WBC 6.6 4.0 - 10.8 x10'3/uL 12/24/2020 10:17 AM CDT [facility] RBC 4.07(L) 4.10 - 5.40 x10'6/uL 12/24/2020 10:17 AM CDT [facility] HGB 12.6 12.0 - 16.0 G/DL 12/24/2020 10:17 AM CDT [facility] HCT 39.8 36.0 - 47.0 % 12/24/2020 10:17 AM CDT [facility] MCV 97.8 78.0 - 100.0 FL 12/24/2020 10:17 AM CDT [facility] MCH 31.0 27.0 - 31.0 PG 12/24/2020 10:17 AM CDT [facility] MCHC 31.7(L) 33.0 - 36.0 G/DL 12/24/2020 10:17 AM CDT [facility] RDW 12.9 11.5 - 14.5 % 12/24/2020 10:17 AM CDT [facility] PLT 257 150 - 350 x10'3/uL 12/24/2020 10:17 AM CDT [facility] MPV 10.0 7.4 - 10.4 FL 12/24/2020 10:17 AM CDT [facility] DIFFERENTIAL COMMENT NORMAL REFERENCE RANGE NOT ESTABLISHED FOR THE PROPORTIONAL LEUKOCYTE DIFFERENTIAL. 12/24/2020 10:17 AM CDT [facility] SEG NEUTROPHILS 63.1 % 10:17 AM CDT [facility] LYMPHOCYTES 25.2 % 12/24/2020 10:17 AM CDT [facility] MONOCYTES 9.8 % 12/24/2020 10:17 AM CDT [facility] EOSINOPHILS 1.2 % 12/24/2020 10:17 AM CDT [facility] BASOPHILS 0.5 % 12/24/2020 10:17 AM CDT [facility] IMMATURE GRANS % 0.2 % 12/25/19 10:17 AM CDT [facility] NRBC 0.0 % 12/24/2020 10:17 AM CDT [facility] ABS. NEUTROPHILS 4.20 1.60 - 8.30 x10'3/uL 12/24/2020 10:17 AM CDT [facility] ABS. LYMPHOCYTES 1.67 0.80 - 4.70 x10'3/uL 12/24/2020 10:17 AM CDT [facility] ABS. MONOCYTES 0.65 0.00 - 1.50 x10'3/uL 12/24/2020 10:17 AM CDT [facility] ABS. EOSINOPHILS 0.08 0.00 - 0.40 x10'3/uL 12/24/2020 10:17 AM CDT [facility] ABS. BASOPHILS 0.03 0.00 - 0.20 x10'3/uL 12/24/2020 10:17 AM CDT [facility] ABS. IMMATURE GRANULOCYTES 0.01 0.00 - 0.03 x10'3/uL 12/24/2020 10:17 AM CDT [facility] ABS. NUCLEATED RBC'S 0.00 0.00 x10'3/uL 12/24/2020 10:17 AM CDT [facility] 12/24/2020 10:0 7 AM CDT us Duke Mccauley MD LABORATORY Final Result [facility] [address] [place] [address], documented in this encounter Visit Diagnoses Diagnosis Rheumatoid arthritis, unspecified (CMS/HCC HHS/HCC)- Primary documented in this encounter Care Teams Electronics Technician Apprentice Relationship Specialty Start Date End Date Azeem Shah MD [address] [place] [address] PCP - General FAMILY PRACTICE 08/23/18 documented as of this encounter
--- OUTSIDE RECORDS SUMMARY | 2024-02-20 23:26 | XMS_ITS | Encounter Summary ---
Author Organization [facility] Address [address] [place] [address]. [place] [address] [place] [address] Care Team Providers Care Power Plant Operator Apprentice Name Role Phone Unavailable Primary Care Provider Unavailabl e Encounter Details Date Type Department Care Team (Late st Contact Info) Description 09/30/2000 Abstract [facility] CONVERSION [address] [place] [address] , Generic Conversion, Social History Tobacco Use Types Packs/Day Years Used Date Smoking Tobacco: Never Assessed Comments Unknown Sex and Gender Information Value Date Recorded Sex Assigned at Not on file Legal Sex Female 5:55 PM LIMNOLOGIST Gender Identity Not on file Sexual Orientation Not on file documented as of this encounter Plan of Treatment Not on file documented as of this encounter Visit Diagnoses Not on filedocumented in this encounter
--- OUTSIDE RECORDS SUMMARY | 2024-02-20 23:26 | XMS_ITS | Clinical Summary ---
Author Organization [facility] Address [address] [place] [address]. 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 Gender Identity Not on file Sexual Orientation Not on file Plan of Treatment Health Maintenance Due Date Last Done Comments Cervical Cancer Screening Pa p Smear (Age 30 to 64) Every 3 Years 1966 Colorectal Cancer Screening Colonoscopy (10 Years) 1966 Annual Physical 1969 DTaP, Tdap and Td Vaccines ( 1 - Tdap) 1985 Hepatitis B Vaccines (1 of 3 - 19+ 3-dose series) 1985 Cervical Cancer Screening Pa p with HPV Testing (Age 30 to 64) Every 5 Years 01/02/1996 Cervical Cancer Screening [facility] HPV 01/02/1996 Mammogram Screening 2006 Zoster Vaccines (1 of 2) 01/02/2016 COVID-19 Vaccine (2023-2 5 season) 2023 06/04/2020, 05/14/2020 Influenza Adult (#1) 2023 Hepatitis C Completed 08/23/2018 Meningococcal Vaccine Aged Out No leslie donna eligible based on patient's age to complete this topic Pneumococcal Vaccine: Pediatrics (0 to 5 Years) and At-Risk Patients (6 to 64 Years) Aged Out No longer eligible b ased on patient's age to complete this topic RSV Immunizations Under 20 Months Aged Out No longer eligible b ased on patient's age to complete this topic Procedures Procedure Name Priority Date/Time Associated Diagnosis Comments HEPATITIS C ANTIBODY Routine 08/23/2018 10:42 AM CDT 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 DOES NOT EXCLUDE THE POSSIBILITY OF EXPOSURE TO HCV. 08/23/2018 10:4 2 AM CDT us Duke Mccauley MD LABORATORY Final Result [facility] [address] [place] [address], [id number] from Last 3 Months or Most Recently Relevant to Health Maintenance Insurance [employer] Care Teams Manager Mining Relationship Specialty Start Date End Date Azeem Shah MD [address] [place] [address] [place] [phone] PCP - General FAMILY PRACTICE 08/23/18
--- OUTSIDE RECORDS SUMMARY | 2024-02-20 23:26 | XMS_ITS | Encounter Summary ---
Author Organization [facility] Address [address] [place] [address]. [place], [place] [address] [place] [address] Care Team Providers Care Computer Operator Name Role Phone Azeem Shah MD Primary Care Provider [phone]- [phone] Encounter Details Date Type Department Care Team (Latest Contact Info) Description 12/24/2020 Travel Social History Tobacco Use Types Packs/Day Years Used Date Smoking Tobacco: Never Assessed Comments Unknown Sex and Gender Information Value Date Recorded Sex Assigned at Not on file Legal Sex Female 5:55 PM COLLAR SETTER Gender Identity Not on file Sexual Orientation [...] on filedocumented in this encounter Care Teams Computer Operator Relationship Specialty Start Date End Date Azeem Shah MD [address] [place] [id number] PCP - General FAMILY PRACTICE 08/23/18 documented as of this encounter
--- OUTSIDE RECORDS SUMMARY | 2024-02-20 23:26 | XMS_ITS | Encounter Summary ---
Author Organization [facility] Address [address] [place] [address]. [place] [address] [place] [address] Care Team Providers Care Boat Painter Name Role Phone Azeem Shah MD Primary Care Provider [phone] Encounter Details Date Type Department Care Team (Latest Contact Info) Description 08/23/2018 10:22 AM CDT - 08/23/2018 11:59 PM CDT Hospital Encounter [facility] [address] [facility] [facility] [address] Duke Mccauley MD Discharge Disposition: Home or Self Care (Routine Discharge) Social History Tobacco Use Types Packs/Day Years Used Date Smoking Tobacco: Never Assessed Comments Unknown Sex and Gender Information Value Date Recorded Sex Assigned at Not on file Legal Sex Female 5:55 PM PROMOTIONAL MARKETING 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 Gender Identity Not on file Sexual Orientation Not on file documented as of this encounter Plan of Treatment Not on file documented as of this encounter Procedures Procedure Name Priority Date/Time Associated Diagnosis Comments TBGOLD-TUBERCULOSIS TST CELL MEDIATED IMMUNITY Routine 08/23/2018 10:42 AM CDT 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 (CMS/HCC HHS/HCC) HEPATITIS C ANTIBODY Routine 08/23/2018 10:42 AM CDT 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 (CMS/HCC HHS/HCC) HEPATITIS B SURFACE AG, EIA Routine 08/23/2018 10:42 AM CDT 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 (CMS/HCC HHS/HCC) HEPATIC FUNCTION PANEL Routine 9 10:42 AM CDT 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 (CMS/HCC HHS/HCC) CBC W/DIFF AUTOMATED Routine 08/23/2018 10:42 AM CDT 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 (CMS/HCC HHS/HCC) PROTEIN, ELECTROPHORESIS Routine 08/23/2018 10:42 AM CDT 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 (CMS/HCC HHS/HCC) documented in this encounter Results * HEPATIC FUNCTION PANEL (08/23/2018 10:42 AM CDT) BILIRUBIN TOTAL S/P/B 0.6 0.2 - 1.0 MG/DL 08/23/2018 11:45 AM CDT [facility] BILIRUBIN DIRECT S/P/B 0.1 0.0 - 0.2 MG/DL 08/23/2018 11:45 AM CDT [facility] ALKALINE PHOSPHATASE S/P/B 98 41 - 108 U/L 08/23/2018 11:45 AM CDT [facility] AST 22 15 - 37 U/L 08/23/2018 11:45 AM CDT [facility] ALT 34 14 - 59 U/L 08/23/2018 11:45 AM CDT [facility] TOTAL PROTEIN S/P/B 7.5 6.4 - 8.2 G/DL 08/23/2018 11:45 AM CDT [facility] ALBUMIN S/P/B 4.0 3.4 - 5.0 G/DL 08/23/2018 11:45 AM CDT [facility] 08/23/2018 10:4 2 AM CDT us Duke Mccauley MD LABORATORY Final Result [facility] [address] [place] [address], * (ABNORMAL) CBC W/DIFF AUTOMATED (08/23/2018 10:42 AM CDT) WBC 7.3 4.5 - 10.8 x10'3/uL 08/23/2018 11:35 AM CDT [facility] RBC 3.89(L) 4.10 - 5.40 x10'6/uL 08/23/2018 11:35 AM CDT [facility] HGB 12.6 12.0 - 16.0 G/DL 08/23/2018 11:35 AM CDT [facility] HCT 37.8 36.0 - 47.0 % 08/23/2018 11:35 AM CDT [facility] MCV 97.2 78.0 - 100.0 FL 08/23/2018 11:35 AM CDT [facility] MCH 32.4(H) 27.0 - 31.0 PG 08/23/2018 11:35 AM CDT [facility] MCHC 33.3 33.0 - 36.0 G/DL 08/23/2018 11:35 AM CDT [facility] RDW 13.1 11.5 - 14.5 % 08/23/2018 11:35 AM CDT [facility] PLT 241 150 - 350 x10'3/uL 08/23/2018 11:35 AM CDT [facility] MPV 10.0 7.4 - 10.4 FL 08/23/2018 11:35 AM CDT [facility] DIFFERENTIAL COMMENT NORMAL REFERENCE RANGE NOT ESTABLISHED FOR THE PROPORTIONAL LEUKOCYTE DIFFERENTIAL. 08/23/2018 11:35 AM CDT [facility] SEG NEUTROPHILS 69.0 % 9 11:35 AM CDT [facility] LYMPHOCYTES 21.8 % 08/23/2018 11:35 AM CDT [facility] MONOCYTES 7.3 % 08/23/2018 11:35 AM CDT [facility] EOSINOPHILS 1.1 % 08/23/2018 11:35 AM CDT [facility] BASOPHILS 0.5 % 08/23/2018 11:35 AM CDT [facility] IMMATURE GRANS % 0.3 % 08/24/19 19 11:35 AM CDT [facility] NRBC 0.0 % 08/23/2018 11:35 AM CDT [facility] ABS. NEUTROPHILS 5.04 1.60 - 8.30 x10'3/uL 08/23/2018 11:35 AM CDT [facility] ABS. LYMPHOCYTES 1.59 0.80 - 4.70 x10'3/uL 08/23/2018 11:35 AM CDT [facility] ABS. MONOCYTES 0.53 0.00 - 1.50 x10'3/uL 08/23/2018 11:35 AM CDT [facility] ABS. EOSINOPHILS 0.08 0.00 - 0.40 x10'3/uL 08/23/2018 11:35 AM CDT [facility] ABS. BASOPHILS 0.04 0.00 - 0.20 x10'3/uL 08/23/2018 11:35 AM CDT [facility] ABS. IMMATURE GRANULOCYTES 0.02 0.00 - 0.03 x10'3/uL 08/23/2018 11:35 AM CDT [facility] ABS. NUCLEATED RBC'S 0.00 0.00 x10'3/uL 08/23/2018 11:35 AM CDT [facility] 08/23/2018 10:4 2 AM CDT Duke Mccauley MD LABORATORY Final Result Performing Organization Address City/State/[facility] Co de Phone Number [facility] [address] [place] [address], * PROTEIN, ELECTROPHORESIS (08/23/2018 10:42 AM CDT) TOTAL PROTEIN (ELECTROPHORESIS SERUM) 7.1 6.0 - 8.3 G/DL 08/25/2018 12:[address] [facility] ALBUMIN ELECTROPHORESIS S/P/B 4.5 3.4 - 4.9 G/DL 08/25/2018 12:[address] [facility] [id number] CSF 0.3 0.2 - 0.4 G/DL 08/25/2018 12:[address] [facility] [id number] S/P/B 0.7 0.4 - 1.0 G/DL 08/25/2018 12:[address] [facility] BETA GLOBULIN S/P/B 0.8 0.5 - 1.2 G/DL 08/25/2018 12:[address] [facility] GAMMA GLOBULIN S/P/B 0.9 0.6 - 1.6 G/DL 08/25/2018 12:[address] [facility] ELECTROPHORESIS INTERPRETATION THIS SERUM PEP WAS INTERPRETED BY 08/26/2018 6:[address] [facility] Comment: DR DILCIA VILLEGAS MD THE TOTAL SERUM PROTEIN IS NORMAL. ELECTROPHORESIS IDENTIFIES NO QUANTITATIVE ABNORMALITIES WITHIN THE PROTEIN FRACTIONS. MONOCLONAL PROTEINS ARE NOT DETECTED. 08/23/2018 10:4 2 AM CDT us Duke Mccauley MD LABORATORY Final Result Performing Organization Address [facility] Co de Phone Number [facility] [address] [place] [address], [phone] * HEPATITIS C ANTIBODY (08/23/2018 10:42 AM CDT) [facility] HEPATITIS C AB NON-REACTI VE NON-REACT MINGO 08/24/2018 2:[address] [facility] Comment: ANTIBODIES TO HCV NOT DETECTED. DOES NOT EXCLUDE THE POSSIBILITY OF EXPOSURE TO HCV. 08/23/2018 10:4 2 AM CDT us Duke Mccauley MD LABORATORY Final Result Performing Organization Address [facility] Co de Phone Number [facility] [address] [place] [address], [place] [phone] * HEPATITIS B SURFACE AG, EIA (08/23/2018 10:42 AM CDT) HEPATITIS B SURFACE AG NON-REACTI VE NON-REACTI VE 08/24/2018 2:[address] [facility] Comment:HBsAg NOT DETECTED. 08/23/2018 10:4 2 AM CDT us Duke Mccauley MD LABORATORY Final Result Performing Organization Address [facility] de Phone Number [facility] [address] [place] [address], [phone] * TBGOLD-TUBERCULOSIS TST CELL MEDIATED IMMUNITY (08/23/2018 10:42 AM CDT) Pathologist [facility] TB INTERPRETATION NEGATIVE 019 12:[address] [facility] Comment:NEGATIVE: No immune response to Mycobacterium tuberculosis noted. TB1 AG MINUS NIL 0.01 IU/ML 08/26/19 19 12:[address] [facility] TB2 AG MINUS NIL 0.01 IU/ML 08/26/19 19 12:[address] [facility] Comment: This test was automated and its characteristics determined by the [facility]. Automated versions of this test have not been cleared or approved by the FDA. This laboratory is regulated under CLIA as qualified to perform high complexity testing. This test is used for clinical purposes. It should not be regarded as investigational or for research. 08/23/2018 10:4 2 AM CDT us Duke Mccauley MD LABORATORY Final Result Performing Organization Address [facility] de Phone Number 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
--- OUTSIDE RECORDS SUMMARY | 2024-02-20 23:26 | XMS_ITS | Encounter Summary ---
Author Organization [facility] Address [facility]. [place], [place] [address] [place] [address] Care Team Providers Care Shift Superintendent Caustic Cresylate Name Role Phone Unavailable Primary Care Provider Unavailabl e Encounter Details Date Type Department Care Team (Late st Contact Info) Description 07/04/[address] 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
--- OUTSIDE RECORDS SUMMARY | 2024-02-20 23:26 | XMS_ITS | Encounter Summary ---
Author Organization [facility] Address [address] [place] [address]. 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
--- OUTSIDE RECORDS SUMMARY | 2024-02-20 23:26 | XMS_ITS | Encounter Summary ---
Author Organization [facility] Address [address] [place] [address]. [place] [address] [place] [address] Care Team Providers Care Footwear Production Machine Operator Name Role Phone Unavailable Primary Care Provider Unavailabl e Encounter Details Date Type Department Care Team (Late st Contact Info) Description 05/14/2009 Abstract [facility] [address] [place] [address] Azeem Shah MD [address] [place] [address] Social History Tobacco Use Types Packs/Day Years Used Date Smoking Tobacco: Never Assessed Comments Unknown Sex and Gender Information Value Date Recorded Sex Assigned at Not on file Legal Sex Female 5:55 PM LACTATION SPECIALIST Gender Identity Not on file Sexual Orientation Not on file documented as of this encounter Plan of Treatment Not on file documented as of this encounter Visit Diagnoses Diagnosis Screening for malignant neoplasm of cervix Screening for malignant neoplasm of the cervix documented in this encounter
--- OUTSIDE RECORDS SUMMARY | 2024-02-20 23:27 | XMS_ITS | Encounter Summary ---
Author Organization [facility] Address [address] [place] [address]. [place] [address] [place] [address] Care Team Providers Care Factory Hand Name Role Phone Unavailable Primary Care Provider Unavailabl e Encounter Details Date Type Department Care Team (Late st Contact Info) Description 03/15/1998 Abstract [facility] [address] [place] [address] , Generic Conversion, Social History Tobacco Use Types Packs/Day Years Used Date Smoking Tobacco: Never Assessed Comments Unknown Sex and Gender Information Value Date Recorded Sex Assigned at Not on file Legal Sex Female 5:55 PM FISH RECEIVER Gender Identity Not on file Sexual Orientation Not on file documented as of this encounter Plan of Treatment Not on file documented as of this encounter Visit Diagnoses Not on filedocumented in this encounter
--- OUTSIDE RECORDS SUMMARY | 2024-02-20 23:27 | XMS_ITS | Encounter Summary ---
Author Organization [facility] Address [address] [place] [address]. [place] [address] [place] [address] Care Team Providers Care Marketing Project Coordinator Name Role Phone Unavailable Primary Care Provider Unavailabl e Encounter Details Date Type Department Care Team (Late st Contact Info) Description 04/10/1997 Abstract [facility] [address] [place] [address] , Generic Conversion, Social History Tobacco Use Types Packs/Day Years Used Date Smoking Tobacco: Never Assessed Comments Unknown Sex and Gender Information Value Date Recorded Sex Assigned at Not on file Legal Sex Female 5:55 PM STUDY ABROAD ADVISOR Gender Identity Not on file Sexual Orientation Not on file documented as of this encounter Plan of Treatment Not on file documented as of this encounter Visit Diagnoses Not on filedocumented in this encounter
--- OUTSIDE RECORDS SUMMARY | 2024-02-20 23:27 | XMS_ITS | Encounter Summary ---
Author Organization [facility] Address [address] [place] [address]. 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
--- OUTSIDE RECORDS SUMMARY | 2024-02-20 23:27 | XMS_ITS | Encounter Summary ---
Author Organization [facility] Address [address] [place] [address]. 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
--- OUTSIDE RECORDS SUMMARY | 2024-02-20 23:27 | XMS_ITS | Encounter Summary ---
Author Organization [facility] Address [address] [place] [address]. 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
--- OUTSIDE RECORDS SUMMARY | 2024-02-20 23:27 | XMS_ITS | Encounter Summary ---
Author Organization [facility] Address [address] [place] [address]. 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
--- OUTSIDE RECORDS SUMMARY | 2024-02-20 23:27 | XMS_ITS | Encounter Summary ---
Author Organization [facility] Address [address] [place] [address]. 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
--- OUTSIDE RECORDS SUMMARY | 2024-02-20 23:27 | XMS_ITS | Encounter Summary ---
Author Organization [facility] Address [address] [place] [address]. 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
== END 2024-02-14 09:03 | disposition home or self-care (01) ==
LOC: CHSIMG 09:04
PROVIDERS: PCP Family Medicine; Visit Provider Orthopaedic Surgery
DX: S52.531D Colles' fracture of right radius, subsequent encounter for closed fracture with routine healing (principal)
CPT/HCPCS: 73110